=== PATIENT | female | born 1930 | race Caucasian/White ===

== ENCOUNTER 2017-03-09 00:30 | Observation (INO) | payer OTHER, BC ==
[2017-03-09 00:57] VITALS: BMI 26.6
[2017-03-09 01:21] LABS: URINE APPEARANCE CLEAR; URINE BILIRUBIN NEGATIVE (NEGATIVE); URINE BLOOD NEGATIVE (NEGATIVE); URINE COLOR LTYELLOW; URINE GLUCOSE (UA) NEGATIVE (NEGATIVE); URINE KETONE NEGATIVE (NEGATIVE); URINE LEUK ESTERASE NEGATIVE (NEGATIVE); URINE NITRITE NEGATIVE (NEGATIVE); URINE PROTEIN NEGATIVE (NEGATIVE); URINE UROBILINOGEN NEGATIVE mg/dL (0.2-1.0)
[2017-03-09 02:05] LABS: BASO % 1.4 % (0-2.0); EOS % 3.4 % (0-4.5); HEMATOCRIT 37.9 % (32.4-45.2); HEMOGLOBIN 12.6 GM/dL (10.7-15.3); LYMPH % 35.9 % (8-40); MCH 29.8 pg (25.7-33.7); MCHC 33.1 g/dl (32.0-36.0); MEAN CELL VOLUME 90.1 fl (80-96); MEAN PLT VOLUME 9.4 fl (7.5-11.1); MONO % 10.7 % (3.8-10.2); NEUT % 48.6 % (42.8-82.8); PLATELET COUNT 202 K/MM3 (134-434); RBC 4.21 M/mm3 (3.60-5.2); RDW 13.1 % (11.6-15.6); WHITE BLOOD COUNT 8.2 K/mm3 (4.0-10.0)
[2017-03-09 02:35] LABS: ALBUMIN 2.8 g/dl (3.4-5.0); ANION GAP 10 (8-16); BILIRUBIN,TOTAL 0.3 mg/dL (0.2-1.0); BLOOD UREA NITROGEN 21 mg/dL (7-18); CALCIUM 9.1 mg/dL (8.5-10.1); CHLORIDE 108 mmol/L (98-107); CO2 24 mmol/L (21-32); CREATININE 0.9 mg/dL (0.55-1.02); GLUCOSE,RANDOM 126 mg/dL (74-106); POTASSIUM 4.1 mmol/L (3.5-5.1); SGOT/AST 20 U/L (15-37); SGPT/ALT 29 U/L (12-78); SODIUM 142 mmol/L (136-145)
[2017-03-09 02:37] LABS: ALK PHOS 67 U/L (45-117)
--- NOTE | 2017-03-09 03:11 | PDOC ---
History of Present Illness - General Chief Complaint: Syncope/Near Syncope Stated Complaint: SYNCOPE Time Seen by Provider: 03/09/17 02:47 History Source: Patient Exam Limitations: No Limitations - History of Present Illness Initial Comments: 03/09/17 03:03 The patient is an 86F with a PMH of dementia, HTN, anxiety, who presents to the ER via EMS. Hx is provided by EMS and NH records. Per the NH records: "Resident was found to have a syncopal episode w/ a minute of unresponsiveness." The patient cannot provide any history 2/2 to decreased verbal engagement because of dementia. EMS and NH can only provide that history. Past History - Past Medical History Allergies/Adverse Reactions: Allergies Allergy/AdvReac Type Severity Reaction Status Date / Time No Known Allergies Allergy Verified 03/09/17 00:49 Home Medications: Ambulatory Orders Aa/Hydrolyzed Collagen, Whey [Lps Neutral Flavor Liquid] 30 ml PO DAILY Acetaminophen 650 mg PO Q6H PRN 12/26/15 Alendronate Sodium [Binosto] 70 mg PO TU 12/26/15 Calcium Carbonate/Vitamin D3 [Oyster Shell+D 250 mg Tablet] 2 each PO BID Docusate Sodium [Colace -] 200 mg PO DAILY 12/26/15 Guaifenesin [Patience-Tussin] 200 mg PO Q4H PRN 12/26/15 Lisinopril 5 mg PO DAILY 12/26/15 Aspirin [Aspirin EC] 325 mg PO DAILY #30 tablet. 01/05/16 Atorvastatin Ca [Lipitor] 40 mg PO HS #30 tablet 01/05/16 Anemia: Yes COPD: No Dementia: Yes (ALZHEIMERS.) GI Disorders: Yes (GERD.) HTN: Yes Psychiatric Problems: Yes (ANXIETY. DEPRESSION.) Other medical history: freq falls - Suicide/Smoking/Psychosocial Hx Smoking History: Never smoked Have you smoked in the past 12 months: No Information on smoking cessation initiated: No Hx Alcohol Use: No Drug/Substance Use Hx: No Substance Use Type: None Review of Systems - Review of Systems Able to Perform ROS?: No (2/2 dementia) Is the patient limited Amharic proficient: No *Physical Exam - Vital Signs Last Vital Signs Temp Pulse Resp BP Pulse Ox 98.2 F 84 20 127/65 97 03/09/17 00:30 03/09/17 00:30 03/09/17 00:30 03/09/17 00:30 03/09/17 00:30 - Physical Exam Comments: 03/09/17 04:28 GENERAL: Well developed, well nourished. Awake and alert, confused. No acute distress. HEENT: Normocephalic, atraumatic. Hearing grossly normal. PERRLA, EOMI. No conjunctival pallor. Sclera are non-icteric. NECK: Supple. Full ROM. No JVD. CARDIOVASCULAR: Regular rate and rhythm. No murmurs, rubs, or gallops. PULMONARY: No evidence of respiratory distress. Lungs clear to auscultation bilaterally. No wheezing, rales or rhonchi. ABDOMINAL: Soft. Non-tender. Non-distended. No rebound or guarding. MUSCULOSKELETAL: Normal range of motion at all joints. No bony deformities or tenderness. EXTREMITIES: No cyanosis. No clubbing. No edema. No calf tenderness. SKIN: Warm and dry. Normal capillary refill. No rashes. No jaundice. NEUROLOGICAL: Awake, confused. Slight R sided facial droop. Normal speech. PSYCHIATRIC: Cooperative. Good eye contact. Appropriate mood and affect. Heart Score/ECG Review #1 ECG reviewed & interpreted by me at: 04:29 General ECG Interpretation: Sinus Rhythm, Normal Rate, Normal Intervals, No acute ischemic changes Compared to previous ECG there are: Changes noted 03/09/17 04:29 Sinus rhythm with 1st degree AV block Rate 63 IA 228 QRS 110 QTc 470 Incomplete RBBB, not clearly seen on previous EKG ED Treatment Course - LABORATORY CBC & Chemistry Diagram: 03/09/17 02:00 03/09/17 02:00 - ADDITIONAL ORDERS Additional order review: Laboratory Results 03/09/17 03/09/17 02:00 01:03 Sodium 142 Potassium 4.1 Chloride 108 H Carbon Dioxide 24 Anion Gap 10 BUN 21 H Creatinine 0.9 Creat Clearance w eGFR 59.37 Random Glucose 126 H Calcium 9.1 Total Bilirubin 0.3 D AST 20 ALT 29 Alkaline Phosphatase 67 Creatine Kinase 30 Troponin I < 0.02 Total Protein 6.0 L Albumin 2.8 L Urine Color Ltyellow Urine Appearance Clear Urine pH 6.0 Ur Specific [place] 1.021 Urine Protein Negative Urine Glucose (UA) Negative Urine Ketones Negative Urine Blood Negative Urine Nitrite Negative Urine Bilirubin Negative Urine Urobilinogen Negative Ur Leukocyte Esterase Negative 03/09/17 02:00 RBC 4.21 MCV 90.1 MCHC 33.1 RDW 13.1 MPV 9.4 Neutrophils % 48.6 D Lymphocytes % 35.9 D Monocytes % 10.7 H Eosinophils % 3.4 D Basophils % 1.4 - RADIOLOGY Radiology Studies Ordered: Category Date Time Status HEAD CT WITHOUT CONTRAST [CT] Stat CT Scan 03/09/17 01:57 Taken Medical Decision Making - Medical Decision Making 03/09/17 04:30 The patient is an 86F with a PMH of dementia and HTN who presents after having an unwitnessed syncopal episode at her [facility]. The patient cannot provide any history or ROS. PE grossly negative. CT head negative on preliminary read except for increased size of ventricles. EKG showing new incomplete RBBB. Will monitor closely. 03/09/17 06:39 Dr. Mercado has been paged. 03/09/17 06:50 I have spoken to Dr. Pride who accepts admission and would like Dr. Allison and Dr. Eng consulted. *DC/Admit/Observation/Transfer Diagnosis at time of Disposition: Syncope Qualifiers: Syncope type: unspecified Qualified Code(s): R55 - Syncope and collapse - Discharge Dispostion Condition at time of disposition: Stable Admit: Yes - Referrals - Patient Instructions - Post Discharge Activity
[2017-03-09] MEDS ORDERED: ACETAMINOPHEN 325 MG TABLET (FP) PO PRN (10:34)
[2017-03-09] MEDS ORDERED: guaiFENesin 200 MG/10 ML 10 ML UNIT-DOSE CUPS PO PRN (10:34)
--- NOTE | 2017-03-09 10:43 | HP ---
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 Cardiovascular: Yes: HTN Gastrointestinal: Yes: GERD - Smoking History Smoking history: Never smoked Have you smoked in the past 12 months: No - Alcohol/Substance Use Hx Alcohol Use: No - Social History Usual Living Arrangement: Yes: [facility] ADL: Support Services History of Recent Travel: No Home Medications - Allergies Allergies/Adverse Reactions: Allergies Allergy/AdvReac Type Severity Reaction Status Date / Time No Known Allergies Allergy Verified 03/09/17 00:49 - Home Medications Home Medications: Ambulatory Orders Aa/Hydrolyzed Collagen, Whey [Lps Neutral Flavor Liquid] 30 ml PO DAILY Acetaminophen 650 mg PO Q6H PRN 12/26/15 Alendronate Sodium [Binosto] 70 mg PO TU 12/26/15 Calcium Carbonate/Vitamin D3 [Oyster Shell+D 250 mg Tablet] 2 each PO BID Docusate Sodium [Colace -] 200 mg PO DAILY 12/26/15 Guaifenesin [Patience-Tussin] 200 mg PO Q4H PRN 12/26/15 Lisinopril 5 mg PO DAILY 12/26/15 Aspirin [Aspirin EC] 325 mg PO DAILY #30 tablet. 01/05/16 Atorvastatin Ca [Lipitor] 40 mg PO HS #30 tablet 01/05/16 Family Disease History - Family Disease History Family History: Unable to Obtain Review of Systems Unable to obtain ROS, reason: dementia Physical Examination Vital Signs: Vital Signs Temperature 36.8 C 03/09/17 00:30 Pulse Rate 84 03/09/17 00:30 Respiratory Rate 20 03/09/17 00:30 Blood Pressure 127/65 03/09/17 00:30 O2 Sat by Pulse Oximetry (%) 97 03/09/17 00:30 Constitutional: Yes: Well Nourished, No Distress, Calm Eyes: Yes: Conjunctiva Clear, PERRL HENT: Yes: Atraumatic, Normocephalic Cardiovascular: Yes: Regular Rate and Rhythm. No: Gallop, Murmur, Rub Respiratory: Yes: Regular, CTA Bilaterally. No: Rales, Rhonchi, Wheezes Gastrointestinal: Yes: Normal Bowel Sounds, Soft. No: Distention, Tenderness Extremities: Yes: Other (R arm contracted) Edema: No Labs: CBC, BMP 03/09/17 02:00 03/09/17 02:00 Imaging - Results Cat Scan: Report Reviewed Ultrasound: Report Reviewed Problem List - Problems (1) Syncope Assessment/Plan: -patient with syncope at [facility] -admit under observation to telemetry -ECHO and carotid ultrasound reviewed -unable to do orthostatics secondary to right hemiparesis -case d/w neurology -awaiting cardiology evaluation -continue IVF currently Code(s): R55 - SYNCOPE AND COLLAPSE Qualifiers: Syncope type: unspecified Qualified Code(s): R55 - Syncope and collapse (2) CVA, old, hemiparesis Assessment/Plan: -case d/w daughter in law -baseline is right side hemiparesis -appears at baseline Code(s): I69.359 - HEMIPLGA FOLLOWING CEREBRAL INFARCTION AFFECTING UNSP SIDE (3) HTN (hypertension) Assessment/Plan: -continue lisinopril Code(s): I10 - ESSENTIAL (PRIMARY) HYPERTENSION (4) HLD (hyperlipidemia) Assessment/Plan: -continue statin Code(s): E78.5 - HYPERLIPIDEMIA, UNSPECIFIED (5) Alzheimer's dementia without behavioral disturbance Assessment/Plan: -daughter in law says patient mumbles and dementia is severe -appears at baseline Code(s): G30.9 - ALZHEIMER'S DISEASE, UNSPECIFIED; F02.80 - DEMENTIA IN OTH DISEASES CLASSD ELSWHR W/O BEHAVRL DISTURB
[2017-03-09] MEDS ORDERED: SODIUM CHLORIDE 1,000 ML IV SCH (10:45)
--- NOTE | 2017-03-09 10:58 | EKG ---
Test Reason : Blood Pressure : / mmHG Vent. Rate : 063 BPM Atrial Rate : 063 BPM P-R Int : 228 ms QRS Dur : 110 ms QT Int : 460 ms P-R-T Axes : 069 021 -06 degrees QTc Int : 470 ms SINUS RHYTHM WITH 1ST DEGREE A-V BLOCK INCOMPLETE RIGHT BUNDLE BRANCH BLOCK NONSPECIFIC ST ABNORMALITY ABNORMAL ECG WHEN COMPARED WITH ECG OF 28-DEC-2015 09:04, [place] INTERVAL HAS INCREASED T WAVE INVERSION NO LONGER EVIDENT IN ANTERIOR LEADS Confirmed by MARLON MURRIETA MD ([id number]) on 03/09/2017 10:58:17 AM Referred By: Confirmed By:MARLON MURRIETA MD
--- NOTE | 2017-03-09 12:20 | CONSULT ---
Consult - text type - Consultation Consultation Note: Neurology History of Present Illness The patient is an 86F with a PMH of dementia, HTN, anxiety, who presents to the ER via EMS. Hx is provided by EMS and NH records. Per the NH records: "Resident was found to have a syncopal episode w/ a minute of unresponsiveness." The patient cannot provide any history 2/2 to decreased verbal engagement because of dementia. I reviewed EMS report and NH report in chart. Hospitalist also spoke with daughter and patient history of CVA with R sided paralysis. Also with severe Alz disease and with mumbling. During my encounter, appears to be at baseline as decribed. CT head reviewed and did demonstrate old left basal ganglia infarct which is consistent with her right-side paralysis. There were no new acute changes on CAT scan. Past History - Past Medical History Allergies/Adverse Reactions: Allergies Allergy/AdvReac Type Severity Reaction Status Date / Time No Known Allergies Allergy Verified 03/09/17 00:49 Home Medications: Ambulatory Orders Aa/Hydrolyzed Collagen, Whey [Lps Neutral Flavor Liquid] 30 ml PO DAILY Acetaminophen 650 mg PO Q6H PRN 12/26/15 Alendronate Sodium [Binosto] 70 mg PO TU 12/26/15 Calcium Carbonate/Vitamin D3 [Oyster Shell+D 250 mg Tablet] 2 each PO BID Docusate Sodium [Colace -] 200 mg PO DAILY 12/26/15 Guaifenesin [Patience-Tussin] 200 mg PO Q4H PRN 12/26/15 Lisinopril 5 mg PO DAILY 12/26/15 Aspirin [Aspirin EC] 325 mg PO DAILY #30 tablet. 01/05/16 Atorvastatin Ca [Lipitor] 40 mg PO HS #30 tablet 01/05/16 Anemia: Yes COPD: No Dementia: Yes (ALZHEIMERS.) GI Disorders: Yes (GERD.) HTN: Yes Psychiatric Problems: Yes (ANXIETY. DEPRESSION.) Other medical history: freq falls - Suicide/Smoking/Psychosocial Hx Smoking History: Never smoked Have you smoked in the past 12 months: No Information on smoking cessation initiated: No Hx Alcohol Use: No Drug/Substance Use Hx: No Substance Use Type: None Review of Systems - Review of Systems Able to Perform ROS?: No (2/2 dementia and nonverbal) Is the patient limited Ecuadorean proficient: No *Physical Exam Vital Signs Temperature 98.2 F 03/09/17 00:30 Pulse Rate 84 03/09/17 00:30 Respiratory Rate 20 03/09/17 00:30 Blood Pressure 127/65 03/09/17 00:30 O2 Sat by Pulse Oximetry (%) 97 03/09/17 00:30 GENERAL: Well developed, well nourished. Awake and alert, confused. No acute distress. HEENT: Normocephalic, atraumatic. Hearing grossly normal. PERRLA, EOMI. No conjunctival pallor. Sclera are non-icteric. NECK: Supple. Full ROM. No JVD. CARDIOVASCULAR: Regular rate and rhythm. No murmurs, rubs, or gallops. PULMONARY: No evidence of respiratory distress. Lungs clear to auscultation bilaterally. No wheezing, rales or rhonchi. ABDOMINAL: Soft. Non-tender. Non-distended. No rebound or guarding. MUSCULOSKELETAL: Normal range of motion at all joints. No bony deformities or tenderness. EXTREMITIES: No cyanosis. No clubbing. No edema. No calf tenderness. SKIN: Warm and dry. Normal capillary refill. No rashes. No jaundice. NEUROLOGICAL: Awake, confused. R facial droop, RUE and RLE hemiparesis, not fully cooperative in confrontation PSYCHIATRIC: Minimally cooperative, emotional Laboratory Results 03/09/17 03/09/17 02:00 01:03 Sodium 142 Potassium 4.1 Chloride 108 H Carbon Dioxide 24 Anion Gap 10 BUN 21 H Creatinine 0.9 Creat Clearance w eGFR 59.37 Random Glucose 126 H Calcium 9.1 Total Bilirubin 0.3 D AST 20 ALT 29 Alkaline Phosphatase 67 Creatine Kinase 30 Troponin I < 0.02 Total Protein 6.0 L Albumin 2.8 L Urine Color Ltyellow Urine Appearance Clear Urine pH 6.0 Ur Specific [place] 1.021 Urine Protein Negative Urine Glucose (UA) Negative Urine Ketones Negative Urine Blood Negative Urine Nitrite Negative Urine Bilirubin Negative Urine Urobilinogen Negative Ur Leukocyte Esterase Negative 03/09/17 02:00 RBC 4.21 MCV 90.1 MCHC 33.1 RDW 13.1 MPV 9.4 Neutrophils % 48.6 D Lymphocytes % 35.9 D Monocytes % 10.7 H Eosinophils % 3.4 D Basophils % 1.4 - RADIOLOGY CT head reviewed Medical Decision Making 86F with a PMH of dementia, HTN, anxiety, who presents to the ER via EMS. Hx is provided by EMS and NH records. Per the NH records: "Resident was found to have a syncopal episode w/ a minute of unresponsiveness." The patient cannot provide any history 2/2 to decreased verbal engagement because of dementia. I reviewed EMS report and NH report in chart. Hospitalist also spoke with daughter and patient history of CVA with R sided paralysis. Also with severe Alz disease and with mumbling. During my encounter, appears to be at baseline as decribed. CT head reviewed and did demonstrate old left basal ganglia infarct which is consistent with her right-side paralysis. There were no new acute changes on CAT scan. Ventricular dilation consistent with age-related atrophy and Alzheimer 's. At this time I would recommend adequate hydration, monitor blood pressure maintain normotensive range, caution for behavioral changes as patient may have sundowning in unfamiliar environment of the hospital due to her Alzheimer' s. Otherwise neurologically stable at this time.
--- NOTE | 2017-03-09 17:43 | CON.CARD ---
Cardiology Consult (text) - Consultation Consultation Note: CC: syncope 86 yo with pmhx of htn, cva with residual rt hemiparesis, severe alzheimer's ( mumbles/otherwise nonverbal), gerd who presents with syncope per report, concern for syncope b/c patient was unresponsive for one minute. unable to obtain history from patient. reviewed [facility] notes. patient on aspiration precautions. appears to be bed bound, but not clear from available records. patient appears anxious, is not able to respond to questions about symptoms, does not follow commands. pmhx/pshx: per hpi social hx: Never smoked, [facility] resident. dnr fam hx: unable to obtain ros: per hpi, limited due to patient mental status Ambulatory Orders Aa/Hydrolyzed Collagen, Whey [Lps Neutral Flavor Liquid] 30 ml PO DAILY Acetaminophen 650 mg PO Q6H PRN 12/26/15 Alendronate Sodium [Binosto] 70 mg PO TU 12/26/15 Calcium Carbonate/Vitamin D3 [Oyster Shell+D 250 mg Tablet] 2 each PO BID Docusate Sodium [Colace -] 200 mg PO DAILY 12/26/15 Guaifenesin [Patience-Tussin] 200 mg PO Q4H PRN 12/26/15 Lisinopril 5 mg PO DAILY 12/26/15 Aspirin [Aspirin EC] 325 mg PO DAILY #30 tablet. 01/05/16 Atorvastatin Ca [Lipitor] 40 mg PO HS #30 tablet 01/05/16 Current Medications Acetaminophen (Tylenol -) 650 mg PO Q6H PRN PRN Reason: PAIN Amino Acids (Prosource No Carb Liquid Pkt) 30 ml PO DAILY@0800 COUNT INCLUDES THE [facility] Aspirin (Ecotrin -) 325 mg PO DAILY COUNT INCLUDES THE [facility] Atorvastatin Calcium (Lipitor -) 40 mg PO HS COUNT INCLUDES THE [facility] Calcium/Vitamin D (Oscal 250 Mg+D -) 2 tab PO BID COUNT INCLUDES THE [facility] Docusate Sodium (Colace -) 200 mg PO DAILY [facility] Guaifenesin (Robitussin -) 10 ml PO Q4H PRN PRN Reason: COUGH Sodium Chloride (Normal Saline -) 1,000 mls @ 50 mls/hr IV ASDIR COUNT INCLUDES THE [facility] Stop: 03/10/17 10:39 Last Admin: 03/09/17 16:38 Dose: 50 mls/hr Lisinopril (Prinivil) 5 mg PO DAILY COUNT INCLUDES THE [facility] Vital Signs - 24 hr 03/09/17 03/09/17 00:30 14:38 Temperature 98.2 F 98.2 F Pulse Rate 84 Pulse Rate [ 58 L Left Radial] Respiratory 20 22 Rate Blood Pressure 127/65 Blood Pressure 159/68 [Right Arm] O2 Sat by Pulse 97 99 Oximetry (%) Intake & Output 03/07/17 03/08/17 03/09/17 03/10/17 07:59 07:59 07:59 07:59 Weight 160 lb nad, calm but anxious when examined jvd flat, neck supple ctab, poor effort rrr nl s1, s2 no mrg + bs soft nt nd ext without e/c/c dp/pt alert, not oriented rt sided weakness no jaundice, diaphoresis no carotid bruit. CBC, BMP 03/09/17 02:00 03/09/17 02:00 Laboratory Tests 03/09/17 02:00 Total Bilirubin 0.3 D AST 20 ALT 29 Alkaline Phosphatase 67 Troponin I < 0.02 Albumin 2.8 L ekg: sr with av delay. incomplete rbbb. non-specific t wave ab in inf leads. (prior anterior twi no longer seen, new av delay and qrs widening). tele: sr 60's echo 03/2017: nl lv/rv size/fn. 1+ ar. carotid u/s: very limited/non-diagnostic exam. Small plaque on right without increased measured velocities, left side not evaluated. 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 A/P 86 yo with pmhx of htn, cva with residual rt hemiparesis, severe alzheimer's ( mumbles/otherwise nonverbal), gerd who presents with syncope syncope - echo unremarkable - ce's neg x 1. no acute ischemic changes on ekg. will obtain 2nd set of cardiac enzymes to complete dany, but low suspicion for acs. - tele monitoring to evaluate for arrhythmia. will check magnesium level and tsh. - no acute pathology on head ct, carotid u/s not diagnostic, neuro following. - infectious work up per pmd. history of po intake unclear, on ivf. htn - on lisinopril as outpatient. Has not yet received/needed here. Continue and monitor for need to adjust dose. cva with right hemiparesis, bed bound. - on high dose asa and statin as outpatient, con't - no acute pathology on head ct, neuro following
[2017-03-09] MEDS: CALCIUM 250MG/VIT-D 125 UNITS 1 COMBO TABLET PO SCH (22:16)
[2017-03-09] MEDS: ATORVASTATIN CA 40 MG TABLET (FP) PO SCH (22:16)
[2017-03-10 07:16] LABS: EOS % 2.1 % (0-4.5); HEMATOCRIT 39.9 % (32.4-45.2); HEMOGLOBIN 13.1 GM/dL (10.7-15.3); LYMPH % 28.6 % (8-40); MCH 29.5 pg (25.7-33.7); MCHC 32.9 g/dl (32.0-36.0); MEAN CELL VOLUME 89.7 fl (80-96); MEAN PLT VOLUME 9.5 fl (7.5-11.1); MONO % 10.1 % (3.8-10.2); NEUT % 58.2 % (42.8-82.8); PLATELET COUNT 202 K/MM3 (134-434); RBC 4.45 M/mm3 (3.60-5.2); RDW 13.3 % (11.6-15.6); WHITE BLOOD COUNT 10.5 K/mm3 (4.0-10.0)
[2017-03-10 07:22] LABS: ANION GAP 8 (8-16); BLOOD UREA NITROGEN 13 mg/dL (7-18); CALCIUM 8.3 mg/dL (8.5-10.1); CHLORIDE 109 mmol/L (98-107); CO2 25 mmol/L (21-32); CREATININE 0.7 mg/dL (0.55-1.02); GLUCOSE,RANDOM 107 mg/dL (74-106); MAGNESIUM 1.9 mg/dL (1.8-2.4); PHOSPHOROUS 3.4 mg/dL (2.5-4.9); SODIUM 142 mmol/L (136-145)
--- NOTE | 2017-03-10 09:31 | PN ---
Progress Note (short form) - Note Progress Note: Neurology History of Present Illness The patient is an 86F with a PMH of dementia, HTN, anxiety, who presents to the ER via EMS. Hx is provided by EMS and NH records. Per the NH records: "Resident was found to have a syncopal episode w/ a minute of unresponsiveness. The patient cannot provide any history 2/2 to decreased verbal engagement because of dementia. I reviewed EMS report and NH report in chart. Hospitalist also spoke with daughter and patient history of CVA with R sided paralysis. Also with severe Alz disease and with mumbling. During my encounter, appears to be at baseline as decribed. CT head reviewed and did demonstrate old left basal ganglia infarct which is consistent with her right-side paralysis. There were no new acute changes on CAT scan. Cardiology note reviewed, echo completed and with normal LV, RV function. Active Medications Acetaminophen (Tylenol -) 650 mg PO Q6H PRN PRN Reason: PAIN Amino Acids (Prosource No Carb Liquid Pkt) 30 ml PO DAILY@0800 [facility] Aspirin (Ecotrin -) 325 mg PO DAILY [facility] Atorvastatin Calcium (Lipitor -) 40 mg PO HS [facility] Last Admin: 03/09/17 22:16 Dose: 40 mg Calcium/Vitamin D (Oscal 250 Mg+D -) 2 tab PO BID [facility] Last Admin: 03/09/17 22:16 Dose: 2 tab Docusate Sodium (Colace -) 200 mg PO DAILY [facility] Guaifenesin (Robitussin -) 10 ml PO Q4H PRN PRN Reason: COUGH Sodium Chloride (Normal Saline -) 1,000 mls @ 50 mls/hr IV ASDIR [facility] Stop: 03/10/17 10:39 Last Admin: 03/09/17 16:38 Dose: 50 mls/hr Lisinopril (Prinivil) 5 mg PO DAILY [facility] *Physical Exam Vital Signs Temperature 98 F 03/10/17 09:21 Pulse Rate 60 03/10/17 09:21 Respiratory Rate 18 03/10/17 09:21 Blood Pressure 148/74 03/10/17 09:21 O2 Sat by Pulse Oximetry (%) 95 03/10/17 00:00 GENERAL: Well developed, well nourished. Awake and alert, confused. No acute distress. HEENT: Normocephalic, atraumatic. Hearing grossly normal. PERRLA, EOMI. No conjunctival pallor. Sclera are non-icteric. NECK: Supple. Full ROM. No JVD. CARDIOVASCULAR: Regular rate and rhythm. No murmurs, rubs, or gallops. PULMONARY: No evidence of respiratory distress. Lungs clear to auscultation bilaterally. No wheezing, rales or rhonchi. ABDOMINAL: Soft. Non-tender. Non-distended. No rebound or guarding. MUSCULOSKELETAL: Normal range of motion at all joints. No bony deformities or tenderness. EXTREMITIES: No cyanosis. No clubbing. No edema. No calf tenderness. SKIN: Warm and dry. Normal capillary refill. No rashes. No jaundice. NEUROLOGICAL: Awake, confused. R facial droop, RUE and RLE hemiparesis, not fully cooperative in confrontation PSYCHIATRIC: Minimally cooperative, emotional CBCD WBC 10.5 K/mm3 (4.0-10.0) H 03/10/17 05:35 RBC 4.45 M/mm3 (3.60-5.2) 03/10/17 05:35 Hgb 13.1 GM/dL (10.7-15.3) 03/10/17 05:35 Hct 39.9 % (32.4-45.2) 03/10/17 05:35 MCV 89.7 fl (80-96) 03/10/17 05:35 MCHC 32.9 g/dl (32.0-36.0) 03/10/17 05:35 RDW 13.3 % (11.6-15.6) 03/10/17 05:35 Plt Count 202 K/MM3 (134-434) 03/10/17 05:35 MPV 9.5 fl (7.5-11.1) 03/10/17 05:35 CMP Sodium 142 mmol/L (136-145) 03/10/17 05:35 Potassium 4.0 mmol/L (3.5-5.1) 03/10/17 05:35 Chloride 109 mmol/L (98-107) H 03/10/17 05:35 Carbon Dioxide 25 mmol/L (21-32) 03/10/17 05:35 Anion Gap 8 (8-16) 03/10/17 05:35 BUN 13 mg/dL (7-18) 03/10/17 05:35 Creatinine 0.7 mg/dL (0.55-1.02) 03/10/17 05:35 Creat Clearance w eGFR 59.37 (>60) 03/09/17 02:00 Calcium 8.3 mg/dL (8.5-10.1) L 03/10/17 05:35 Total Bilirubin 0.3 mg/dL (0.2-1.0) D 03/09/17 02:00 AST 20 U/L (15-37) 03/09/17 02:00 ALT 29 U/L (12-78) 03/09/17 02:00 Alkaline Phosphatase 67 U/L (45-117) 03/09/17 02:00 Total Protein 6.0 g/dl (6.4-8.2) L 03/09/17 02:00 Albumin 2.8 g/dl (3.4-5.0) L 03/09/17 02:00 - RADIOLOGY CT head reviewed Echo reviewed Medical Decision Making 86F with a PMH of dementia, HTN, anxiety, who presents to the ER via EMS. Hx is provided by EMS and [place] records. Per the [place] records: "Resident was found to have a syncopal episode w/ a minute of unresponsiveness." The patient cannot provide any history 2/2 to decreased verbal engagement because of dementia. I reviewed EMS report and [place] report in chart. Hospitalist also spoke with daughter and patient history of CVA with R sided paralysis. Also with severe Alz disease and with mumbling. During my encounter, appears to be at baseline as described. CT head reviewed and did demonstrate old left basal ganglia infarct which is consistent with her right-side paralysis. There were no new acute changes on CAT scan. Ventricular dilation consistent with age-related atrophy and Alzheimer 's. Echo reviewed, cardiolog note reviewed. Monitor blood pressure maintain normotensive range, caution for behavioral changes as patient may have sundowning in unfamiliar environment of the hospital due to her Alzheimer's. Would not pursue further imaging of head as deficits are chronic. No further rec 'd at this time.
[2017-03-10] MEDS: CALCIUM 250MG/VIT-D 125 UNITS 1 COMBO TABLET PO SCH ×2 (09:48→22:05)
[2017-03-10] MEDS: LISINOPRIL 5 MG TABLET (FP) PO SCH (09:48)
[2017-03-10] MEDS: AMINO ACIDS/PROTEIN HYDROLYS 30 ML LIQUID.PKT PO SCH (09:48)
[2017-03-10] MEDS: ASPIRIN 325 MG ENTERIC COATED TABLET (FP) PO SCH (09:48)
[2017-03-10] MEDS: DOCUSATE SODIUM 100 MG CAPSULE (FP) PO SCH (09:57)
--- NOTE | 2017-03-10 11:17 | PN ---
Progress Note (short form) - Note Progress Note: s: confused, not answering questions, looks comfortable o: Vital Signs Period Temp Pulse Resp BP Sys/Forrester Pulse Ox Last 24 Hr 97.7 F-98.2 F 58-76 18-22 132-183/60-92 95-99 nad, calm jvd flat, neck supple ctab, poor effort rrr nl s1, s2 no mrg + bs soft nt nd ext without e/c/c alert, not oriented no jaundice, diaphoresis Current Medications Generic Name Dose Route Start Last Admin Trade Name Freq PRN Reason Stop Dose Admin Acetaminophen 650 mg 03/09/17 10:34 Tylenol - PO Q6H PRN PAIN Amino Acids 30 ml 03/10/17 08:00 03/10/17 09:48 Prosource No Carb Liquid Pkt PO 30 ml DAILY@0800 [facility] Administration Aspirin 325 mg 03/10/17 10:00 03/10/17 09:48 Ecotrin - PO 325 mg DAILY [facility] Administration Atorvastatin Calcium 40 mg 03/09/17 22:00 03/09/17 22:16 Lipitor - PO 40 mg HS [facility] Administration Calcium/Vitamin D 2 tab 03/09/17 22:00 03/10/17 09:48 Oscal 250 Mg+D - PO 2 tab BID [facility] Administration Docusate Sodium 200 mg 03/10/17 10:00 03/10/17 09:57 Colace - PO Not Given DAILY [facility] Guaifenesin 10 ml 03/09/17 10:34 Robitussin - PO Q4H PRN COUGH Lisinopril 5 mg 03/10/17 10:00 03/10/17 09:48 Prinivil PO 5 mg DAILY [facility] Administration CBC, BMP 03/10/17 05:35 03/10/17 05:35 ekg: sr with av delay. incomplete rbbb. non-specific t wave ab in inf leads. (prior anterior twi no longer seen, new av delay and qrs widening). tele: sr echo 03/2017: nl lv/rv size/fn. 1+ ar. carotid u/s: very limited/non-diagnostic exam. Small plaque on right without increased measured velocities, left side not evaluated. 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 A/P 86 yo with pmhx of htn, cva with residual rt hemiparesis, severe alzheimer's ( mumbles/otherwise nonverbal), gerd who presents with syncope syncope - echo unremarkable - ce's neg x 2. no acute ischemic changes on ekg. no signs acs - tele monitoring benign thus far - no acute pathology on head ct, carotid u/s not diagnostic, neuro following. - infectious work up per pmd. history of po intake unclear, on ivf. htn - continue lisinopril cva with right hemiparesis, bed bound. - on high dose asa and statin as outpatient, con't - no acute pathology on head ct, neuro following
[2017-03-10] MEDS: LACTOBACILLUS ACIDOPHILUS 1 EACH TAB (FP) PO SCH (12:22)
[2017-03-10] MEDS: AMOX TR/POT CLAV 875MG/125MG TABLETS (FP) PO SCH ×2 (12:22→17:17)
--- NOTE | 2017-03-10 12:43 | PN ---
Progress Note, Physician Chief Complaint: Unable to obtain, son and daughter in law at bedside stating patient looks like she is doing well. - Current Medication List Current Medications: Active Medications Acetaminophen (Tylenol -) 650 mg PO Q6H PRN PRN Reason: PAIN Amino Acids (Prosource No Carb Liquid Pkt) 30 ml PO DAILY@0800 [facility] Last Admin: 03/10/17 09:48 Dose: 30 ml Amoxicillin/Clavulanate Potassium (Augmentin - 875mg Tablet) 1 tab PO BID@0800, 1730 [facility] Last Admin: 03/10/17 12:22 Dose: 1 tab Aspirin (Ecotrin -) 325 mg PO DAILY [facility] Last Admin: 03/10/17 09:48 Dose: 325 mg Atorvastatin Calcium (Lipitor -) 40 mg PO HS [facility] Last Admin: 03/09/17 22:16 Dose: 40 mg Calcium/Vitamin D (Oscal 250 Mg+D -) 2 tab PO BID [facility] Last Admin: 03/10/17 09:48 Dose: 2 tab Docusate Sodium (Colace -) 200 mg PO DAILY [facility] Last Admin: 03/10/17 09:57 Dose: Not Given Guaifenesin (Robitussin -) 10 ml PO Q4H PRN PRN Reason: COUGH Lactobacillus Acidophilus (Bacid -) 1 tab PO DAILY [facility] Last Admin: 03/10/17 12:22 Dose: 1 tab Lisinopril (Prinivil) 5 mg PO DAILY [facility] Last Admin: 03/10/17 09:48 Dose: 5 mg - Objective Vital Signs: Vital Signs Temperature 36.6 C 03/10/17 09:21 Pulse Rate 60 03/10/17 09:21 Respiratory Rate 18 03/10/17 09:21 Blood Pressure 148/74 03/10/17 09:21 O2 Sat by Pulse Oximetry (%) 95 03/10/17 00:00 Constitutional: Yes: Well Nourished, No Distress, Calm Cardiovascular: Yes: Regular Rate and Rhythm. No: Gallop, Murmur, Rub Respiratory: Yes: Regular, CTA Bilaterally. No: Rales, Rhonchi, Wheezes Gastrointestinal: Yes: Normal Bowel Sounds, Soft. No: Distention, Tenderness Extremities: Yes: WNL Edema: No Labs: CBC, BMP 03/10/17 05:35 03/10/17 05:35 Problem List - Problems (1) Syncope Code(s): R55 - SYNCOPE AND COLLAPSE Qualifiers: Syncope type: unspecified Qualified Code(s): R55 - Syncope and collapse (2) CVA, old, hemiparesis Code(s): I69.359 - HEMIPLGA FOLLOWING CEREBRAL INFARCTION AFFECTING UNSP SIDE (3) HTN (hypertension) Code(s): I10 - ESSENTIAL (PRIMARY) HYPERTENSION (4) HLD (hyperlipidemia) Code(s): E78.5 - HYPERLIPIDEMIA, UNSPECIFIED (5) Alzheimer's dementia without behavioral disturbance Code(s): G30.9 - ALZHEIMER'S DISEASE, UNSPECIFIED; F02.80 - DEMENTIA IN OTH DISEASES CLASSD ELSWHR W/O BEHAVRL DISTURB (6) UTI (urinary tract infection) Code(s): N39.0 - URINARY TRACT INFECTION, SITE NOT SPECIFIED Qualifiers: Urinary tract infection type: acute cystitis Hematuria presence: without hematuria Qualified Code(s): N30.00 - Acute cystitis without hematuria Assessment/Plan (1) Syncope Assessment/Plan: -resolved -can stop IVF -monitor Code(s): R55 - SYNCOPE AND COLLAPSE Qualifiers: Syncope type: unspecified Qualified Code(s): R55 - Syncope and collapse (2) CVA, old, hemiparesis Assessment/Plan: -continue current management -at baseline Code(s): I69.359 - HEMIPLGA FOLLOWING CEREBRAL INFARCTION AFFECTING UNSP SIDE (3) HTN (hypertension) Assessment/Plan: -continue lisinopril Code(s): I10 - ESSENTIAL (PRIMARY) HYPERTENSION (4) HLD (hyperlipidemia) Assessment/Plan: -continue statin Code(s): E78.5 - HYPERLIPIDEMIA, UNSPECIFIED (5) Alzheimer's dementia without behavioral disturbance Assessment/Plan: -appears at baseline Code(s): G30.9 - ALZHEIMER'S DISEASE, UNSPECIFIED; F02.80 - DEMENTIA IN OTH DISEASES CLASSD ELSWHR W/O BEHAVRL DISTURB (6) UTI -found on urine culture -growing proteus and enterococcus -awaiting sensitivities -both should be susceptible to augmentin, will start -if cultures show both are sensitive, discharge on full course of augmentin -if not will change to inpatient and treat with IV antibiotics
[2017-03-10] MEDS: ATORVASTATIN CA 40 MG TABLET (FP) PO SCH (22:05)
[2017-03-11 07:58] LABS: ANION GAP 6 (8-16); BLOOD UREA NITROGEN 19 mg/dL (7-18); CALCIUM 8.9 mg/dL (8.5-10.1); CHLORIDE 105 mmol/L (98-107); CO2 30 mmol/L (21-32); CREATININE 0.9 mg/dL (0.55-1.02); GLUCOSE,RANDOM 114 mg/dL (74-106); PHOSPHOROUS 3.9 mg/dL (2.5-4.9); POTASSIUM 4.2 mmol/L (3.5-5.1); SODIUM 141 mmol/L (136-145)
[2017-03-11 08:08] LABS: BASO % 1.5 % (0-2.0); EOS % 2.7 % (0-4.5); HEMATOCRIT 40.2 % (32.4-45.2); HEMOGLOBIN 13.1 GM/dL (10.7-15.3); LYMPH % 30.7 % (8-40); MCH 29.4 pg (25.7-33.7); MCHC 32.6 g/dl (32.0-36.0); MEAN CELL VOLUME 90.1 fl (80-96); MEAN PLT VOLUME 9.7 fl (7.5-11.1); MONO % 11.6 % (3.8-10.2); NEUT % 53.5 % (42.8-82.8); PLATELET COUNT 218 K/MM3 (134-434); RBC 4.46 M/mm3 (3.60-5.2); RDW 13.2 % (11.6-15.6)
--- NOTE | 2017-03-11 08:22 | PN ---
Progress Note, Physician Chief Complaint: syncope History of Present Illness: appears comfortable. not communicative - Current Medication List Current Medications: Active Medications Acetaminophen (Tylenol -) 650 mg PO Q6H PRN PRN Reason: PAIN Amino Acids (Prosource No Carb Liquid Pkt) 30 ml PO DAILY@0800 [facility] Last Admin: 03/10/17 09:48 Dose: 30 ml Amoxicillin/Clavulanate Potassium (Augmentin - 875mg Tablet) 1 tab PO BID@0800, 1730 [facility] Last Admin: 03/10/17 17:17 Dose: 1 tab Aspirin (Ecotrin -) 325 mg PO DAILY [facility] Last Admin: 03/10/17 09:48 Dose: 325 mg Atorvastatin Calcium (Lipitor -) 40 mg PO HS [facility] Last Admin: 03/10/17 22:05 Dose: 40 mg Calcium/Vitamin D (Oscal 250 Mg+D -) 2 tab PO BID [facility] Last Admin: 03/10/17 22:05 Dose: 2 tab Docusate Sodium (Colace -) 200 mg PO DAILY [facility] Last Admin: 03/10/17 09:57 Dose: Not Given Guaifenesin (Robitussin -) 10 ml PO Q4H PRN PRN Reason: COUGH Lactobacillus Acidophilus (Bacid -) 1 tab PO DAILY [facility] Last Admin: 03/10/17 12:22 Dose: 1 tab Lisinopril (Prinivil) 5 mg PO DAILY [facility] Last Admin: 03/10/17 09:48 Dose: 5 mg - Objective Vital Signs: Vital Signs Temperature 97.4 F L 03/11/17 06:00 Pulse Rate 69 03/11/17 06:00 Respiratory Rate 18 03/11/17 06:00 Blood Pressure 138/67 03/11/17 06:00 O2 Sat by Pulse Oximetry (%) 95 03/10/17 21:00 Constitutional: Yes: Well Nourished, No Distress, Calm Cardiovascular: Yes: Regular Rate and Rhythm, S1, S2. No: Gallop, Murmur Respiratory: Yes: Regular, CTA Bilaterally (not taking deep breaths for exam). No: Accessory Muscle Use, Rales, Wheezes Extremities: No: Cold Edema: No Neurological: Yes: Alert. No: Oriented Psychiatric: No: Agitated Labs: CBC, BMP 03/11/17 06:32 03/11/17 06:32 - ....Imaging EKG: Other (tele: NSR. 7b run NSVT) Assessment/Plan ekg: sr with av delay. incomplete rbbb. non-specific t wave ab in inf leads. (prior anterior twi no longer seen, new av delay and qrs widening). tele: sr echo 03/2017: nl lv/rv size and fn. 1+ ar. carotid u/s: very limited/non-diagnostic exam. Small plaque on right without increased measured velocities, left side not evaluated. 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 A/P 86 yo with pmhx of htn, cva with residual rt hemiparesis, severe alzheimer's ( mumbles/otherwise nonverbal), gerd who presents with syncope syncope - details unavailable due to pt dementia, ? if true syncope ("1 min of unresponsiveness" per [facility] records) - tele monitoring x 48 hrs now has shown no bradyarrhtyhmia or culprit tachyarrhythmia--d/c monitor - echo unremarkable - no signs of ACS (ce's neg x 2. no acute ischemic changes on ekg) - no acute pathology on head ct, no acute CVA suspected by neurology. carotid u/ s not diagnostic and would not change mgmt as this pt is not a candidate for CEA regardless - episode of unresponsiveness may very well have been due to UTI (in pt with baseline impaired cognition/sensorium)--abx per pmd Vtach: -NSVT 7 beat run -no prognostic significance in pt with normal echo -K/Mag at aggressive targets--replete PRN -requires no further w/u or treatment htn - bp reasonably controlled here - continue lisinopril, observe trend old L b.g. cva with right hemiparesis, bed bound: - on high dose asa and statin as outpatient, prior tx plan not changed here - no evidence of acute CVA here, per neuro D/C TELEMETRY
[2017-03-11] MEDS: AMINO ACIDS/PROTEIN HYDROLYS 30 ML LIQUID.PKT PO SCH (09:40)
[2017-03-11] MEDS: AMOX TR/POT CLAV 875MG/125MG TABLETS (FP) PO SCH ×2 (09:40→16:57)
[2017-03-11] MEDS: CALCIUM 250MG/VIT-D 125 UNITS 1 COMBO TABLET PO SCH ×2 (09:40→21:57)
[2017-03-11] MEDS: LACTOBACILLUS ACIDOPHILUS 1 EACH TAB (FP) PO SCH (09:40)
[2017-03-11] MEDS: ASPIRIN 325 MG ENTERIC COATED TABLET (FP) PO SCH (09:41)
[2017-03-11] MEDS: DOCUSATE SODIUM 100 MG CAPSULE (FP) PO SCH (09:41)
[2017-03-11] MEDS: LISINOPRIL 5 MG TABLET (FP) PO SCH (09:43)
--- NOTE | 2017-03-11 11:47 | PN ---
Progress Note (short form) - Note Progress Note: Medical coverage for Dr. Mercado Subjective: The patient was seen and examined at the bedside, she has no complaints at this time. Denies any pain Current Medications Generic Name Dose Route Start Last Admin Trade Name Freq PRN Reason Stop Dose Admin Acetaminophen 650 mg 03/09/17 10:34 Tylenol - PO Q6H PRN PAIN Amino Acids 30 ml 03/10/17 08:00 03/11/17 09:40 Prosource No Carb Liquid Pkt PO 30 ml DAILY@0800 [facility] Administration Amoxicillin/Clavulanate Potassium 1 tab 03/10/17 12:00 03/11/17 09:40 Augmentin - 875mg Tablet PO 1 tab BID@0800,1730 [facility] Administration Aspirin 325 mg 03/10/17 10:00 03/11/17 09:41 Ecotrin - PO 325 mg DAILY [facility] Administration Atorvastatin Calcium 40 mg 03/09/17 22:00 03/10/17 22:05 Lipitor - PO 40 mg HS [facility] Administration Calcium/Vitamin D 2 tab 03/09/17 22:00 03/11/17 09:40 Oscal 250 Mg+D - PO 2 tab BID [facility] Administration Docusate Sodium 200 mg 03/10/17 10:00 03/11/17 09:41 Colace - PO 200 mg DAILY [facility] Administration Guaifenesin 10 ml 03/09/17 10:34 Robitussin - PO Q4H PRN COUGH Lactobacillus Acidophilus 1 tab 03/10/17 12:00 03/11/17 09:40 Bacid - PO 1 tab DAILY [facility] Administration Lisinopril 5 mg 03/10/17 10:00 03/11/17 09:43 Prinivil PO 5 mg DAILY [facility] Administration Objective: Vital Signs Period Temp Pulse Resp BP Sys/Forrester Pulse Ox Last 24 Hr 96.9 F-97.7 F 63-74 18-20 128-153/58-83 94-97 Physical Exam: General: NAD Lungs: CTA bilaterally Heart: RRR, S1S2 Abd: Soft, non-tender, non-distended. Normoactive bowel sounds CBCD WBC 9.0 K/mm3 (4.0-10.0) 03/11/17 06:32 RBC 4.46 M/mm3 (3.60-5.2) 03/11/17 06:32 Hgb 13.1 GM/dL (10.7-15.3) 03/11/17 06:32 Hct 40.2 % (32.4-45.2) 03/11/17 06:32 MCV 90.1 fl (80-96) 03/11/17 06:32 MCHC 32.6 g/dl (32.0-36.0) 03/11/17 06:32 RDW 13.2 % (11.6-15.6) 03/11/17 06:32 Plt Count 218 K/MM3 (134-434) 03/11/17 06:32 MPV 9.7 fl (7.5-11.1) 03/11/17 06:32 CMP Sodium 141 mmol/L (136-145) 03/11/17 06:32 Potassium 4.2 mmol/L (3.5-5.1) 03/11/17 06:32 Chloride 105 mmol/L (98-107) 03/11/17 06:32 Carbon Dioxide 30 mmol/L (21-32) 03/11/17 06:32 Anion Gap 6 (8-16) L 03/11/17 06:32 BUN 19 mg/dL (7-18) H 03/11/17 06:32 Creatinine 0.9 mg/dL (0.55-1.02) 03/11/17 06:32 Creat Clearance w eGFR 59.37 (>60) 03/09/17 02:00 Random Glucose 114 mg/dL (74-106) H 03/11/17 06:32 Calcium 8.9 mg/dL (8.5-10.1) 03/11/17 06:32 Total Bilirubin 0.3 mg/dL (0.2-1.0) D 03/09/17 02:00 AST 20 U/L (15-37) 03/09/17 02:00 ALT 29 U/L (12-78) 03/09/17 02:00 Alkaline Phosphatase 67 U/L (45-117) 03/09/17 02:00 Total Protein 6.0 g/dl (6.4-8.2) L 03/09/17 02:00 Albumin 2.8 g/dl (3.4-5.0) L 03/09/17 02:00 CARDIAC ENZYMES Creatine Kinase 36 IU/L (26-192) 03/09/17 20:15 Troponin I < 0.02 ng/ml (0.00-0.05) 03/09/17 20:15 Microbiology 03/09/17 02:30 Urine - Urine - Catheterized Urine Culture - Preliminary Proteus Mirabilis Group D Strep Or Entero Coccus Assessment: This is an 86 year old female with PMHx of dementia, HTN, anxiety, who presented to the ED with a syncopal episode Plan: 1) Syncope: - "1 minute of unresponsiveness" per [facility] records - Tele monitoring: no arrhythmia - ECHO reviewed - No signs of ACS - Head CT with no evidence of acute intracranial hemorrhage, edema, midline shift, mass effect, or skull fracture. Old infarct left basal ganglia - Appreciate neurology consult - Appreciate cardiology consult 2) UTI - Urine culture with Proteus mirabilis and group D strep or entero coccus - Awaiting final c/s - Continue Augmentin 3) HLD - Continue Lipitor 4) F/E/N: - Dysphagia Puree diet - Monitor electrolytes 5) Dispo: - Once final urine culture and sensitivity results CODE STATUS: DNR Visit type - Emergency Visit Emergency Visit: Yes ED Registration Date: 03/09/17 Care time: The patient presented to the Emergency Department on the above date and was hospitalized for further evaluation of their emergent condition. - New Patient This patient is new to me today: Yes Date on this admission: 03/11/17 - Critical Care Critical Care patient: No
[2017-03-11] MEDS: ATORVASTATIN CA 40 MG TABLET (FP) PO SCH (21:57)
[2017-03-12] MEDS: CALCIUM 250MG/VIT-D 125 UNITS 1 COMBO TABLET PO SCH (09:27)
[2017-03-12] MEDS: AMINO ACIDS/PROTEIN HYDROLYS 30 ML LIQUID.PKT PO SCH (09:27)
[2017-03-12] MEDS: LACTOBACILLUS ACIDOPHILUS 1 EACH TAB (FP) PO SCH (09:27)
[2017-03-12] MEDS: AMOX TR/POT CLAV 875MG/125MG TABLETS (FP) PO SCH ×2 (09:28→17:22)
[2017-03-12] MEDS: DOCUSATE SODIUM 100 MG CAPSULE (FP) PO SCH (09:28)
[2017-03-12] MEDS: LISINOPRIL 5 MG TABLET (FP) PO SCH (09:28)
[2017-03-12] MEDS: ASPIRIN 325 MG ENTERIC COATED TABLET (FP) PO SCH (09:28)
--- NOTE | 2017-03-12 11:02 | PN ---
Progress Note, Physician Chief Complaint: syncope History of Present Illness: appears comfortable, pleasant, calm. non-communicative - Current Medication List Current Medications: Active Medications Acetaminophen (Tylenol -) 650 mg PO Q6H PRN PRN Reason: PAIN Last Admin: 03/12/17 09:27 Dose: 650 mg Amino Acids (Prosource No Carb Liquid Pkt) 30 ml PO DAILY@0800 [facility] Last Admin: 03/12/17 09:27 Dose: 30 ml Amoxicillin/Clavulanate Potassium (Augmentin - 875mg Tablet) 1 tab PO BID@0800, 1730 [facility] Last Admin: 03/12/17 09:28 Dose: 1 tab Aspirin (Ecotrin -) 325 mg PO DAILY [facility] Last Admin: 03/12/17 09:28 Dose: 325 mg Atorvastatin Calcium (Lipitor -) 40 mg PO HS [facility] Last Admin: 03/11/17 21:57 Dose: 40 mg Calcium/Vitamin D (Oscal 250 Mg+D -) 2 tab PO BID [facility] Last Admin: 03/12/17 09:27 Dose: 2 tab Docusate Sodium (Colace -) 200 mg PO DAILY [facility] Last Admin: 03/12/17 09:28 Dose: 200 mg Guaifenesin (Robitussin -) 10 ml PO Q4H PRN PRN Reason: COUGH Lactobacillus Acidophilus (Bacid -) 1 tab PO DAILY [facility] Last Admin: 03/12/17 09:27 Dose: 1 tab Lisinopril (Prinivil) 5 mg PO DAILY [facility] Last Admin: 03/12/17 09:28 Dose: 5 mg - Objective Vital Signs: Vital Signs Temperature 98.0 F 03/12/17 05:45 Pulse Rate 56 L 03/12/17 05:45 Respiratory Rate 20 03/12/17 05:45 Blood Pressure 125/53 03/12/17 05:45 O2 Sat by Pulse Oximetry (%) 95 03/11/17 22:00 Constitutional: Yes: Well Nourished, No Distress, Calm Cardiovascular: Yes: Regular Rate and Rhythm, S1, S2. No: Gallop, Murmur Respiratory: Yes: Regular, CTA Bilaterally (not taking deep breaths). No: Accessory Muscle Use, Rales, Wheezes Extremities: No: Cold Edema: No Neurological: Yes: Alert. No: Oriented, Seizure Psychiatric: No: Agitated Labs: CBC, BMP 03/11/17 06:32 03/11/17 06:32 - ....Imaging EKG: Other (tele: NSR, no vianca, no VT) Assessment/Plan ekg: sr with av delay. incomplete rbbb. non-specific t wave ab in inf leads. (prior anterior twi no longer seen, new av delay and qrs widening). tele: sr echo 03/2017: nl lv/rv size and fn. 1+ ar. carotid u/s: very limited/non-diagnostic exam. Small plaque on right without increased measured velocities, left side not evaluated. 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 A/P 86 yo with pmhx of htn, cva with residual rt hemiparesis, severe alzheimer's ( mumbles/otherwise nonverbal), gerd who presents with syncope syncope - details unavailable due to pt dementia, ? if true syncope ("1 min of unresponsiveness" per [place] records) - tele monitoring x 48 hrs now has shown no bradyarrhtyhmia or culprit tachyarrhythmia--d/c monitor - echo unremarkable - no signs of ACS (ce's neg x 2. no acute ischemic changes on ekg) - no acute pathology on head ct, no acute CVA suspected by neurology. carotid u/ s not diagnostic and would not change mgmt as this pt is not a candidate for CEA regardless - episode of unresponsiveness may very well have been due to UTI (in pt with baseline impaired cognition/sensorium)--abx per pmd Vtach: -NSVT 7 beat run -no prognostic significance in pt with normal echo -K/Mag at aggressive targets--replete PRN -requires no further w/u or treatment htn - bp reasonably controlled here - continue lisinopril, observe trend old L b.g. cva with right hemiparesis, bed bound: - on high dose asa and statin as outpatient, prior tx plan not changed here - no evidence of acute CVA here, per neuro D/C TELEMETRY (again)
--- NOTE | 2017-03-12 11:48 | PN ---
Progress Note (short form) - Note Progress Note: Medical coverage for Dr. Mercado Subjective: The patient was seen and examined at the bedside, she is non-verbal today but is shaking her head that she is not having pain tody Current Medications Generic Name Dose Route Start Last Admin Trade Name Freq PRN Reason Stop Dose Admin Acetaminophen 650 mg 03/09/17 10:34 03/12/17 09:27 Tylenol - PO 650 mg Q6H PRN Administration PAIN Amino Acids 30 ml 03/10/17 08:00 03/12/17 09:27 Prosource No Carb Liquid Pkt PO 30 ml DAILY@0800 [facility] Administration Amoxicillin/Clavulanate Potassium 1 tab 03/10/17 12:00 03/12/17 09:28 Augmentin - 875mg Tablet PO 1 tab BID@0800,1730 [facility] Administration Aspirin 325 mg 03/10/17 10:00 03/12/17 09:28 Ecotrin - PO 325 mg DAILY [facility] Administration Atorvastatin Calcium 40 mg 03/09/17 22:00 03/11/17 21:57 Lipitor - PO 40 mg HS [facility] Administration Calcium/Vitamin D 2 tab 03/09/17 22:00 03/12/17 09:27 Oscal 250 Mg+D - PO 2 tab BID [facility] Administration Docusate Sodium 200 mg 03/10/17 10:00 03/12/17 09:28 Colace - PO 200 mg DAILY [facility] Administration Guaifenesin 10 ml 03/09/17 10:34 Robitussin - PO Q4H PRN COUGH Lactobacillus Acidophilus 1 tab 03/10/17 12:00 03/12/17 09:27 Bacid - PO 1 tab DAILY [facility] Administration Lisinopril 5 mg 03/10/17 10:00 03/12/17 09:28 Prinivil PO 5 mg DAILY [facility] Administration Objective: Vital Signs Period Temp Pulse Resp BP Sys/Forrester Pulse Ox Last 24 Hr 97.3 F-98.2 F 56-84 18-20 106-137/44-70 95-97 Physical Exam: General: NAD Lungs: CTA bilaterally Heart: RRR, S1S2 Abd: Soft, non-tender, non-distended. Normoactive bowel sounds CBCD WBC 9.0 K/mm3 (4.0-10.0) 03/11/17 06:32 RBC 4.46 M/mm3 (3.60-5.2) 03/11/17 06:32 Hgb 13.1 GM/dL (10.7-15.3) 03/11/17 06:32 Hct 40.2 % (32.4-45.2) 03/11/17 06:32 MCV 90.1 fl (80-96) 03/11/17 06:32 MCHC 32.6 g/dl (32.0-36.0) 03/11/17 06:32 RDW 13.2 % (11.6-15.6) 03/11/17 06:32 Plt Count 218 K/MM3 (134-434) 03/11/17 06:32 MPV 9.7 fl (7.5-11.1) 03/11/17 06:32 CMP Sodium 141 mmol/L (136-145) 03/11/17 06:32 Potassium 4.2 mmol/L (3.5-5.1) 03/11/17 06:32 Chloride 105 mmol/L (98-107) 03/11/17 06:32 Carbon Dioxide 30 mmol/L (21-32) 03/11/17 06:32 Anion Gap 6 (8-16) L 03/11/17 06:32 BUN 19 mg/dL (7-18) H 03/11/17 06:32 Creatinine 0.9 mg/dL (0.55-1.02) 03/11/17 06:32 Creat Clearance w eGFR 59.37 (>60) 03/09/17 02:00 Random Glucose 114 mg/dL (74-106) H 03/11/17 06:32 Calcium 8.9 mg/dL (8.5-10.1) 03/11/17 06:32 Total Bilirubin 0.3 mg/dL (0.2-1.0) D 03/09/17 02:00 AST 20 U/L (15-37) 03/09/17 02:00 ALT 29 U/L (12-78) 03/09/17 02:00 Alkaline Phosphatase 67 U/L (45-117) 03/09/17 02:00 Total Protein 6.0 g/dl (6.4-8.2) L 03/09/17 02:00 Albumin 2.8 g/dl (3.4-5.0) L 03/09/17 02:00 CARDIAC ENZYMES Creatine Kinase 36 IU/L (26-192) 03/09/17 20:15 Troponin I < 0.02 ng/ml (0.00-0.05) 03/09/17 20:15 Microbiology 03/09/17 02:30 Urine - Urine - Catheterized Urine Culture - Preliminary Proteus Mirabilis Group D Strep Or Entero Coccus Assessment: This is an 86 year old female with PMHx of dementia, HTN, anxiety, who presented to the ED with a syncopal episode Plan: 1) Syncope: - "1 minute of unresponsiveness" per [facility] - Tele monitoring: no arrhythmia - ECHO reviewed - No signs of ACS - Head CT with no evidence of acute intracranial hemorrhage, edema, midline shift, mass effect, or skull fracture. Old infarct left basal ganglia - Appreciate neurology consult - Appreciate cardiology consult 2) UTI - Urine culture with Proteus mirabilis and group D strep or entero coccus - Awaiting final c/s for enterococcus - Continue Augmentin 3) HLD - Continue Lipitor 4) F/E/N: - Dysphagia Puree diet - Monitor electrolytes 5) Dispo: - Once final urine culture and sensitivity results CODE STATUS: DNR Visit type - Emergency Visit Emergency Visit: Yes ED Registration Date: 03/09/17 Care time: The patient presented to the Emergency Department on the above date and was hospitalized for further evaluation of their emergent condition. - New Patient This patient is new to me today: No - Critical Care Critical Care patient: No
--- NOTE | 2017-03-12 17:27 | DS ---
Physical Examination Vital Signs: Vital Signs Temperature 97.4 F L 03/12/17 14:00 Pulse Rate 64 03/12/17 14:00 Respiratory Rate 20 03/12/17 11:24 Blood Pressure 144/60 03/12/17 14:00 O2 Sat by Pulse Oximetry (%) 95 03/12/17 11:24 Labs: CBC, BMP 03/11/17 06:32 03/11/17 06:32 Discharge Summary Reason For Visit: SYNCOPE Current Active Problems Alzheimer's dementia without behavioral disturbance (Acute) CVA, old, hemiparesis (Acute) HLD (hyperlipidemia) (Acute) HTN (hypertension) (Acute) Syncope (Acute) UTI (urinary tract infection) (Acute) Condition: Stable - Instructions Diet, Activity, Other Instructions: Please return to the ED with new, persistent, or worsening symptoms. Please follow-up with providers as indicated. Referrals: Sid Pride MD [Staff Physician] - 1 Week Jaquan Quiroz MD [Staff Physician] - 1 Week Sacha Allison MD [Staff Physician] - 1 Week Disposition: [facility] - Home Medications Comprehensive Discharge Medication List: Ambulatory Orders Aa/Hydrolyzed Collagen, Whey [Lps Neutral Flavor Liquid] 30 ml PO DAILY Acetaminophen 650 mg PO Q6H PRN 12/26/15 Alendronate Sodium [Binosto] 70 mg PO TU 12/26/15 Calcium Carbonate/Vitamin D3 [Oyster Shell+D 250 mg Tablet] 2 each PO BID Docusate Sodium [Colace -] 200 mg PO DAILY 12/26/15 Guaifenesin [Patience-Tussin] 200 mg PO Q4H PRN 12/26/15 Lisinopril 5 mg PO DAILY 12/26/15 Aspirin [Aspirin EC] 325 mg PO DAILY #30 tablet. 01/05/16 Atorvastatin Ca [Lipitor] 40 mg PO HS #30 tablet 01/05/16 Amox-Tr/K Cl [Augmentin 875-125mg Tablet -] 1 tab PO BID@0800,1730 #8 tablet 05/24 Lactobacillus Acidophilus [Bacid -] 1 tab PO DAILY #30 tab 03/12/17
[2017-03-12 19:29] VITALS: BP 140/62; PULSE 66; TEMP 97.3
== END 2017-03-12 19:00 ==
LOC: JER 00:30 → INTOOBSV 06:50 → UNDOADMOB 06:50 → JERBED 06:50 → J4W 18:50
PROVIDERS: ADMIT Internal Medicine; ATTEND Registered Nurse
PROC: 3E0337Z Introduction of Electrolytic and Water Balance Substance into Peripheral Vein, Percutaneous Approach (ICD-10-PCS; principal; 2017-03-09)
DX: R55 Syncope and collapse (principal); I10 Essential (primary) hypertension; I44.0 Atrioventricular block, first degree; I69.359 Hemiplegia and hemiparesis following cerebral infarction affecting unspecified side; E78.5 Hyperlipidemia, unspecified; G30.9 Alzheimer's disease, unspecified; F02.80 Dementia in other diseases classified elsewhere, unspecified severity, without behavioral disturbance, psychotic disturbance, mood disturbance, and anxiety; F41.9 Anxiety disorder, unspecified; K21.9 Gastro-esophageal reflux disease without esophagitis; I45.19 Other right bundle-branch block; R29.6 Repeated falls; Z79.02 Long term (current) use of antithrombotics/antiplatelets; N39.0 Urinary tract infection, site not specified; I47.2 Ventricular tachycardia
CPT/HCPCS: 36415; 70450-TC; 80048; 80053; 81003; 82550; 83735; 84100; 84443; 84484; 85025; 87086; 87186; 93005; 93010; 93306-TC; 93880-TC; 96360; 96361; 97161-GP; 99284-25; G0378

== ENCOUNTER 2017-07-24 20:35 | Inpatient (IN) | payer OTHER, BC ==
--- NOTE | 2017-07-24 22:35 | PDOC ---
History of Present Illness - General History Source: Patient Exam Limitations: No Limitations - History of Present Illness Initial Comments: 07/24/17 22:36 The patient is an 87-year-old female with past medical history of Alzheimer's, CVA w/ right side hemiparesis, HTN, HLD, GERD, and prior UTI presents to the emergency department from [facility] with altered mental status. As per the alf, the patient was her normal self for breakfast and lunch today, during dinner time, the NH noticed a change to the patients mental status, increase facial droop and wasnt eating anything. As per the son, the MD called him to report a possibility of a stroke attack and wanted to bring her to the ED. The son states when he arrived she didnt recognize him and wasn t verbalizing. The patient on a baseline can mumble and can respond to yes or no questions. Denies nausea or vomiting. Denies diarrhea or constipation. Denies hematuria. Allergies: NKDA Social history: None reported Surgical history: None reported PCP: None reported <Marita Lopez - Last Filed: 07/25/17 02:03> <Rosangela Salinas - Last Filed: 07/25/17 17:37> - General Chief Complaint: Loss of Appetite Stated Complaint: POOR FEEDING Time Seen by Provider: 07/24/17 21:04 Past History <Marita Lopez - Last Filed: 07/25/17 02:03> - Past Medical History Anemia: Yes COPD: No Dementia: Yes (ALZHEIMERS.) GI Disorders: Yes (GERD.) HTN: Yes Psychiatric Problems: Yes (ANXIETY. DEPRESSION.) - Suicide/Smoking/Psychosocial Hx Smoking History: Never smoked Have you smoked in the past 12 months: No Information on smoking cessation initiated: No Hx Alcohol Use: No Drug/Substance Use Hx: No Substance Use Type: None <Rosangela Salinas - Last Filed: 07/25/17 17:37> - Past Medical History Allergies/Adverse Reactions: Allergies Allergy/AdvReac Type Severity Reaction Status Date / Time No Known Allergies Allergy Verified 07/24/17 21:24 Home Medications: Ambulatory Orders Aa/Hydrolyzed Collagen, Whey [Lps Neutral Flavor Liquid] 30 ml PO BID 12/26/15 Acetaminophen 650 mg PO Q6H PRN 12/26/15 Alendronate Sodium [Binosto] 70 mg PO TU 12/26/15 Calcium Carbonate/Vitamin D3 [Oyster Shell+D 250 mg Tablet] 2 each PO BID Docusate Sodium [Colace -] 200 mg PO HS 12/26/15 Guaifenesin [Patience-Tussin] 200 mg PO Q4H PRN 12/26/15 Lisinopril 5 mg PO DAILY 12/26/15 Aspirin [Aspirin EC] 325 mg PO DAILY #30 tablet. 01/05/16 Atorvastatin Ca [Lipitor] 40 mg PO HS #30 tablet 01/05/16 Lactobacillus Acidophilus [Bacid -] 1 tab PO DAILY #30 tab 03/12/17 Cholecalciferol (Vitamin D3) [Vitamin D3] 1,000 unit PO DAILY 07/25/17 Insulin (LOG) Aspart [NovoLOG -] 0 units SQ TID 07/25/17 Review of Systems - Review of Systems Able to Perform ROS?: No Comments:: 07/25/17 02:04 Unable to provide secondary to dementia and prior stroke. <Marita Lopez - Last Filed: 07/25/17 02:03> *Physical Exam - Vital Signs Last Vital Signs Temp Pulse Resp BP Pulse Ox 100.1 F H 90 16 170/62 96 07/24/17 20:40 07/24/17 20:40 07/24/17 20:40 07/24/17 20:40 07/24/17 20:40 - Physical Exam Comments: 07/24/17 22:38 GENERAL: Well developed, well nourished. Awake and alert. No acute distress. HEENT: Normocephalic, atraumatic. PERRLA, EOMI. No conjunctival pallor. Sclera are non- icteric. Moist mucous membranes. Oropharynx is clear. NECK: Supple. Full ROM. No JVD. Carotid pulses 2+ and symmetric, without bruits. No thyromegaly. No lymphadenopathy. CARDIOVASCULAR: Regular rate and rhythm. No murmurs, rubs, or gallops. Distal pulses are 2+ and symmetric. PULMONARY: No evidence of respiratory distress. Lungs clear to auscultation bilaterally. No wheezing, rales or rhonchi. ABDOMINAL: Soft. Non-tender. Non-distended. No rebound or guarding. No organomegaly. Normoactive bowel sounds. MUSCULOSKELETAL Normal range of motion at all joints. No bony deformities or tenderness. No CVA tenderness. EXTREMITIES: (+) Contracted right side. Weakness to the legs. Cellulitis. No cyanosis. No clubbing. No edema. No calf tenderness. SKIN: Warm and dry. Normal capillary refill. No rashes. No jaundice. NEUROLOGICAL: (+) Tracks with eyes, moans. Cant move right side. PSYCHIATRIC: Cooperative. Good eye contact. Appropriate mood and affect. <Marita Lopez - Last Filed: 07/25/17 02:03> - Vital Signs Last Vital Signs Temp Pulse Resp BP Pulse Ox 100.1 F H 90 16 170/62 96 07/24/17 20:40 07/24/17 20:40 07/24/17 20:40 07/24/17 20:40 07/24/17 20:40 <Rosangela Salinas - Last Filed: 07/25/17 17:37> ED Treatment Course - LABORATORY CBC & Chemistry Diagram: 07/24/17 23:50 07/24/17 23:50 <Marita Lopez - Last Filed: 07/25/17 02:03> - LABORATORY CBC & Chemistry Diagram: 07/25/17 06:30 07/25/17 06:30 - RADIOLOGY Radiology Studies Ordered: Category Date Time Status CHEST X-RAY PORTABLE* [RAD] Stat Radiology 07/24/17 21:32 Ordered <Rosangela Salinas - Last Filed: 07/25/17 17:37> *DC/Admit/Observation/Transfer - Attestations Scribe Attestion: 07/24/17 22:38 Documentation prepared by Marita Lopez, acting as medical practice assistant for Rosangela Salinas MD. <Marita Lopez - Last Filed: 07/25/17 02:03> <Rosangela Salinas - Last Filed: 07/25/17 17:37> Diagnosis at time of Disposition: Sepsis - Discharge Dispostion Condition at time of disposition: Stable
[2017-07-24 23:57] LABS: BASO % 0.3 % (0-2.0); EOS % 0.1 % (0-4.5); HEMATOCRIT 42.3 % (32.4-45.2); HEMOGLOBIN 13.8 GM/dL (10.7-15.3); LYMPH % 9.9 % (8-40); MCHC 32.6 g/dl (32.0-36.0); MEAN CELL VOLUME 88.9 fl (80-96); MEAN PLT VOLUME 10.2 fl (7.5-11.1); MONO % 3.9 % (3.8-10.2); NEUT % 85.8 % (42.8-82.8); PLATELET COUNT 231 K/MM3 (134-434); RBC 4.75 M/mm3 (3.60-5.2); RDW 13.5 % (11.6-15.6); WHITE BLOOD COUNT 14.6 K/mm3 (4.0-10.0)
[2017-07-24 23:58] LABS: URINE APPEARANCE CLEAR; URINE BILIRUBIN NEGATIVE (<2.0 mg/dL); URINE COLOR LTYELLOW; URINE GLUCOSE (UA) 1+ (NEGATIVE); URINE KETONE NEGATIVE (NEGATIVE); URINE LEUK ESTERASE NEGATIVE (NEGATIVE); URINE NITRITE NEGATIVE (NEGATIVE); URINE PROTEIN NEGATIVE (NEGATIVE); URINE UROBILINOGEN NEGATIVE mg/dL (0.2-1.0)
[2017-07-25 00:20] LABS: INR 1.03 (0.82-1.09); PROTHROMBIN TIME (PATIENT) 11.6 SEC (9.7-13.0)
[2017-07-25 00:23] LABS: ACTIVATED PTT 26.4 SECONDS (25.2-36.5)
[2017-07-25] MEDS ORDERED: PIPERACILLIN/TAZOB 3.375 GM 3.375 GM in DEXTROSE 5%-WATER - 50 ML IVPB ONE ×3 (00:24→16:30)
[2017-07-25 00:27] LABS: ALBUMIN 3.2 g/dl (3.4-5.0); ALK PHOS 80 U/L (45-117); ANION GAP 10 (8-16); BILIRUBIN,TOTAL 0.4 mg/dL (0.2-1.0); BLOOD UREA NITROGEN 26 mg/dL (7-18); CALCIUM 9.7 mg/dL (8.5-10.1); CHLORIDE 106 mmol/L (98-107); CO2 24 mmol/L (21-32); CREATININE 1.3 mg/dL (0.55-1.02); GLUCOSE,RANDOM 206 mg/dL (74-106); SGOT/AST 21 U/L (15-37); SGPT/ALT 28 U/L (12-78); SODIUM 140 mmol/L (136-145); TOT PROT 7.1 g/dl (6.4-8.2)
[2017-07-25] MEDS ORDERED: PIPERACILLIN/TAZOB 3.375 GM 3.375 GM/50 ML BAG IVPB ONE (01:10)
[2017-07-25] MEDS ORDERED: VANCOMYCIN 1,000 MG in DEXTROSE 5%-WATER - 250 ML IVPB ONE (02:03)
[2017-07-25] MEDS ORDERED: SODIUM CHLORIDE 1,000 ML IV STA (02:11)
[2017-07-25] MEDS ORDERED: VANCOMYCIN 1 GRAM (PRE-DOCKED) 1,000 MG/250 ML BAG IVPB ONE (02:17)
[2017-07-25 02:39] LABS: VENOUS PC02 24.5 mmHg (38-52); VENOUS PH 7.52 (7.32-7.42); VENOUS PO2 96.9 mmHg (28-48)
--- NOTE | 2017-07-25 03:49 | PDOC ---
*Physical Exam - Vital Signs Last Vital Signs Temp Pulse Resp BP Pulse Ox 100.1 F H 68 15 105/83 93 L 07/24/17 20:40 07/25/17 01:16 07/25/17 01:16 07/25/17 01:16 07/25/17 01:16 ED Treatment Course - LABORATORY CBC & Chemistry Diagram: 07/24/17 23:50 07/24/17 23:50 - ADDITIONAL ORDERS Additional order review: Laboratory Results 07/25/17 07/24/17 07/24/17 02:25 23:50 23:50 PT with INR 11.60 INR 1.03 PTT (Actin FS) 26.4 VBG pH 7.52 H POC VBG pCO2 24.5 L POC VBG pO2 96.9 H Mixed VBG HCO3 19.7 Sodium Potassium Chloride Carbon Dioxide Anion Gap BUN Creatinine Creat Clearance w eGFR Random Glucose Lactic Acid Calcium Total Bilirubin AST ALT Alkaline Phosphatase Troponin I Total Protein Albumin Urine Color Ltyellow Urine Appearance Clear Urine pH 6.0 Ur Specific [place] 1.013 Urine Protein Negative Urine Glucose (UA) 1+ H Urine Ketones Negative Urine Blood 1+ H Urine Nitrite Negative Urine Bilirubin Negative Urine Urobilinogen Negative Ur Leukocyte Esterase Negative Urine WBC (Auto) 1 Urine RBC (Auto) 2 07/24/17 07/24/17 07/24/17 23:50 23:50 23:50 PT with INR INR PTT (Actin FS) VBG pH Cancelled POC VBG pCO2 Cancelled POC VBG pO2 Cancelled Mixed VBG HCO3 Cancelled Sodium 140 Potassium 5.0 Chloride 106 Carbon Dioxide 24 Anion Gap 10 BUN 26 H Creatinine 1.3 H Creat Clearance w eGFR 38.75 Random Glucose 206 H Lactic Acid Calcium 9.7 Total Bilirubin 0.4 D AST 21 ALT 28 Alkaline Phosphatase 80 Troponin I < 0.02 Total Protein 7.1 Albumin 3.2 L Urine Color Urine Appearance Urine pH Ur Specific [place] Urine Protein Urine Glucose (UA) Urine Ketones Urine Blood Urine Nitrite Urine Bilirubin Urine Urobilinogen Ur Leukocyte Esterase Urine WBC (Auto) Urine RBC (Auto) 07/24/17 23:40 PT with INR INR PTT (Actin FS) VBG pH POC VBG pCO2 POC VBG pO2 Mixed VBG HCO3 Sodium Potassium Chloride Carbon Dioxide Anion Gap BUN Creatinine Creat Clearance w eGFR Random Glucose Lactic Acid 3.7 H* Calcium Total Bilirubin AST ALT Alkaline Phosphatase Troponin I Total Protein Albumin Urine Color Urine Appearance Urine pH Ur Specific [place] Urine Protein Urine Glucose (UA) Urine Ketones Urine Blood Urine Nitrite Urine Bilirubin Urine Urobilinogen Ur Leukocyte Esterase Urine WBC (Auto) Urine RBC (Auto) 07/24/17 23:50 RBC 4.75 MCV 88.9 MCHC 32.6 RDW 13.5 MPV 10.2 Neutrophils % 85.8 H D Lymphocytes % 9.9 D Monocytes % 3.9 Eosinophils % 0.1 D Basophils % 0.3 - Medications Given in the ED: ED Medications Discontinued Medications Generic Name Dose Route Start Last Admin Trade Name Freq PRN Reason Stop Dose Admin Piperacillin Sod/Tazobactam 50 mls @ 100 mls/hr 07/25/17 00:24 07/25/17 01:09 Sod 3.375 gm/ Dextrose IVPB 07/25/17 00:53 100 mls/hr ONCE ONE Administration Protocol Vancomycin HCl 1,000 mg/ 250 mls @ 166.667 mls/hr 07/25/17 02:03 07/25/17 02: 14 Dextrose IVPB 07/25/17 03:32 166.667 mls/hr ONCE ONE Administration Protocol Sodium Chloride 1,000 mls @ 1,000 mls/hr 07/25/17 02:11 07/25/17 02:33 Normal Saline - IV 07/25/17 03:10 1,000 mls/hr ASDIR STA Administration *DC/Admit/Observation/Transfer Diagnosis at time of Disposition: Sepsis - Discharge Dispostion Condition at time of disposition: Stable Decision to Admit order: Yes - Referrals - Patient Instructions - Post Discharge Activity
--- NOTE | 2017-07-25 04:44 | HP ---
CHIEF COMPLAINT: altered mental status PCP: Shannen HISTORY OF PRESENT ILLNESS: This is an 87 year old female with a past medical history significant for dementia, CVA, HTN, HLD who presented to the ED from [facility] with report of not eating this evening and increased facial droop. HPI and ROS obtained from CT and ED charts as pt has dementia. ER course was notable for: (1) WBC 14.6, lactic acid 3.7 (2) CT abd pelvis unremarkable (3) u/a unremarkable Recent Travel: none PAST MEDICAL HISTORY: Alzheimer's dementia, CVA with R marc 2016, HTN, HLD, GERD, UTI, anxiety/ depression PAST SURGICAL HISTORY: unk Social History: Smoking: unk Alcohol: unk Drugs: unk Family History: unable to obtain Allergies No Known Allergies Allergy (Verified 07/24/17 21:24) HOME MEDICATIONS: 3 Medication Instructions Recorded Aa/Hydrolyzed Collagen, Whey [Lps 30 ml PO DAILY 12/26/15 Neutral Flavor Liquid] Acetaminophen 650 mg PO Q6H PRN 12/26/15 Alendronate Sodium [Binosto] 70 mg PO TU 12/26/15 Calcium Carbonate/Vitamin D3 2 each PO BID 12/26/15 [Oyster Shell+D 250 mg Tablet] Docusate Sodium [Colace -] 200 mg PO DAILY 12/26/15 Guaifenesin [Patience-Tussin] 200 mg PO Q4H PRN 12/26/15 Lisinopril 5 mg PO DAILY 12/26/15 Aspirin [Aspirin EC] 325 mg PO DAILY #30 tablet. 01/05/16 Atorvastatin Ca [Lipitor] 40 mg PO HS #30 tablet 01/05/16 Amox-Tr/K Cl [Augmentin 875-125mg 1 tab PO BID@0800,1730 #8 tablet 03/12/17 Tablet -] Lactobacillus Acidophilus [Bacid -] 1 tab PO DAILY #30 tab 03/12/17 REVIEW OF SYSTEMS--unable to obtain due to dementia NH noted altered mental status PHYSICAL EXAMINATION Vital Signs - 24 hr 3 07/24/17 07/25/17 20:40 01:16 Temperature 100.1 F H Pulse Rate 90 Pulse Rate [ 68 Apical] Respiratory 16 15 Rate Blood Pressure 170/62 Blood Pressure 105/83 [Right Arm] O2 Sat by Pulse 96 93 L Oximetry (%) GENERAL: Awake, alert, and babbling, pt unable to verbalize in coherent sentences, in no acute distress. HEAD: Normal with no signs of trauma. EYES: Pupils equal, round and reactive to light, extraocular movements intact, sclera anicteric, conjunctiva clear. No lid lag. EARS, NOSE, THROAT: Ears normal, nares patent, oropharynx clear without exudates. Moist mucous membranes. NECK: Normal range of motion, supple without lymphadenopathy, JVD, or masses. LUNGS: Breath sounds equal, clear to auscultation bilaterally. No wheezes, and no crackles. No accessory muscle use. HEART: Regular rate and rhythm, normal S1 and S2 without murmur, rub or gallop. ABDOMEN: Soft, nontender, not distended, normoactive bowel sounds, no guarding, no rebound, no masses. No hepatomegaly or splenomegaly. MUSCULOSKELETAL: No bony deformities or tenderness. No CVA tenderness. right elbow, wrist and hand contractures noted UPPER EXTREMITIES: 2+ pulses, warm, well-perfused. No cyanosis. No clubbing. No peripheral edema. LOWER EXTREMITIES: 2+ pulses, warm, well-perfused. No calf tenderness. No peripheral edema. NEUROLOGICAL: right sided facial droop noted, tracks with eyes, no spontaneous movement of right side noted PSYCHIATRIC: Cooperative. Good eye contact. Appropriate mood and affect. SKIN: Warm, dry, normal turgor, no rashes or lesions noted, normal capillary refill. Laboratory Results - last 24 hr 3 07/24/17 07/24/17 07/24/17 23:40 23:50 23:50 WBC 14.6 H D RBC 4.75 Hgb 13.8 Hct 42.3 MCV 88.9 MCH 29.0 MCHC 32.6 RDW 13.5 Plt Count 231 MPV 10.2 Absolute Neuts (auto) 12.5 Neutrophils % 85.8 H D Lymphocytes % 9.9 D Monocytes % 3.9 Eosinophils % 0.1 D Basophils % 0.3 Nucleated RBC % 0 PT with INR INR PTT (Actin FS) VBG pH Cancelled POC VBG pCO2 Cancelled POC VBG pO2 Cancelled Mixed VBG HCO3 Cancelled Sodium Potassium Chloride Carbon Dioxide Anion Gap BUN Creatinine Creat Clearance w eGFR Random Glucose Lactic Acid 3.7 H* Calcium Total Bilirubin AST ALT Alkaline Phosphatase Troponin I Total Protein Albumin Urine Color Urine Appearance Urine pH Ur Specific [place] Urine Protein Urine Glucose (UA) Urine Ketones Urine Blood Urine Nitrite Urine Bilirubin Urine Urobilinogen Ur Leukocyte Esterase Urine WBC (Auto) Urine RBC (Auto) 3 07/24/17 07/24/17 07/24/17 23:50 23:50 23:50 WBC RBC Hgb Hct MCV MCH MCHC RDW Plt Count MPV Absolute Neuts (auto) Neutrophils % Lymphocytes % Monocytes % Eosinophils % Basophils % Nucleated RBC % PT with INR 11.60 INR 1.03 PTT (Actin FS) 26.4 VBG pH POC VBG pCO2 POC VBG pO2 Mixed VBG HCO3 Sodium 140 Potassium 5.0 Chloride 106 Carbon Dioxide 24 Anion Gap 10 BUN 26 H Creatinine 1.3 H Creat Clearance w eGFR 38.75 Random Glucose 206 H Lactic Acid Calcium 9.7 Total Bilirubin 0.4 D AST 21 ALT 28 Alkaline Phosphatase 80 Troponin I < 0.02 Total Protein 7.1 Albumin 3.2 L Urine Color Urine Appearance Urine pH Ur Specific [place] Urine Protein Urine Glucose (UA) Urine Ketones Urine Blood Urine Nitrite Urine Bilirubin Urine Urobilinogen Ur Leukocyte Esterase Urine WBC (Auto) Urine RBC (Auto) 3 07/24/17 07/25/17 23:50 02:25 WBC RBC Hgb Hct MCV MCH MCHC RDW Plt Count MPV Absolute Neuts (auto) Neutrophils % Lymphocytes % Monocytes % Eosinophils % Basophils % Nucleated RBC % PT with INR INR PTT (Actin FS) VBG pH 7.52 H POC VBG pCO2 24.5 L POC VBG pO2 96.9 H Mixed VBG HCO3 19.7 Sodium Potassium Chloride Carbon Dioxide Anion Gap BUN Creatinine Creat Clearance w eGFR Random Glucose Lactic Acid Calcium Total Bilirubin AST ALT Alkaline Phosphatase Troponin I Total Protein Albumin Urine Color Ltyellow Urine Appearance Clear Urine pH 6.0 Ur Specific [place] 1.013 Urine Protein Negative Urine Glucose (UA) 1+ H Urine Ketones Negative Urine Blood 1+ H Urine Nitrite Negative Urine Bilirubin Negative Urine Urobilinogen Negative Ur Leukocyte Esterase Negative Urine WBC (Auto) 1 Urine RBC (Auto) 2 ECG Sinus rhythm with first degree AV block vent rate 88, QTC 488 Incomplete RBBB Anterior infarct, age undetermined Radiology Reports CT abd/pelvis w/o contrast THIS IS A PRELIMINARY REPORT FROM IMAGING CLAIM CLERK IMPRESSION: No acute findings THIS DOCUMENT HAS BEEN ELECTRONICALLY SIGNED Erik Glover MD 07/25/2017 03:00 EST ASSESSMENT/PLAN: 87yF with PMH Alzheimer's dementia, CVA with R marc 2016, HTN, HLD, GERD, UTI, anxiety/depression presented to the ED [place] via EMS for altered mental status. Fever/SIRS/lactic acidosis - unclear source at this time - CXR difficult to read, pt severely rotated, will await official reading, but pt without cough, respiratory distress or hypoxia - U/A not consistent with UTI - CT abd/pel without acute findings - ID consult - will hold on further ABT at this time - repeat lactic acid s/p fluids URI - Cr bump to 1.3 from 0.91 on 06/[address] - BUN also elevated, ? prerenal related to hypovolemia - received 1L bolus in ed, will cont 75cc/hr for now - hold lisinopril until Cr returns to baseline HTN/HLD - cont home lipitor - hold lisinopril due to URI DVT PPX - heparin tid FEN - NS @ 75cc/hr - BMP in am - puree, nectar thick, sodium controlled diet as tolerated Dispo: pt currently requires further observation for management of emergent condition. Visit type - Emergency Visit Emergency Visit: Yes ED Registration Date: 07/24/17 Care time: The patient presented to the Emergency Department on the above date and was hospitalized for further evaluation of their emergent condition. - New Patient This patient is new to me today: Yes Date on this admission: 07/25/17 - Critical Care Critical Care patient: No Hospitalist Screening - Colonoscopy Questionnaire Colonoscopy Questionnaire: Colonoscopy Questionnaire - Patient: 50 - 75 years old and never had a screening colonoscopy: No History of colon or rectal polyps, or CA: Unknown History of IBD, Crohn's disease or UC: Unknown History of abdominal radiation therapy as a child: Unknown - Relative: 1 with colon or rectal CA, or polyps at age 60 or younger: Unknown Colon or rectal CA diagnosed at age 45 or younger: Unknown Multiple relatives with colon or rectal CA: Unknown - Outcome: Screening Result: Negative Screen
[2017-07-25] MEDS: SODIUM CHLORIDE 1,000 ML IV SCH ×2 (04:56→10:44)
[2017-07-25] MEDS ORDERED: PATIENT'S OWN MEDICATION (NON-FORMULARY) (Alendronate Sodium [Binosto] 70 MG) PO SCH ×2 (05:00→05:37)
[2017-07-25] MEDS ORDERED: ACETAMINOPHEN 325 MG TABLET (FP) PO PRN (05:36)
[2017-07-25 07:42] LABS: BASO % 1.1 % (0-2.0); EOS % 0.7 % (0-4.5); HEMATOCRIT 37.9 % (32.4-45.2); HEMOGLOBIN 12.6 GM/dL (10.7-15.3); LYMPH % 22.5 % (8-40); MCH 29.7 pg (25.7-33.7); MCHC 33.2 g/dl (32.0-36.0); MEAN CELL VOLUME 89.6 fl (80-96); MEAN PLT VOLUME 10.1 fl (7.5-11.1); MONO % 9.1 % (3.8-10.2); NEUT % 66.6 % (42.8-82.8); PLATELET COUNT 188 K/MM3 (134-434); RBC 4.23 M/mm3 (3.60-5.2); RDW 13.5 % (11.6-15.6); WHITE BLOOD COUNT 11.3 K/mm3 (4.0-10.0)
[2017-07-25 08:12] LABS: ANION GAP 9 (8-16); BLOOD UREA NITROGEN 24 mg/dL (7-18); CHLORIDE 106 mmol/L (98-107); CO2 25 mmol/L (21-32); GLUCOSE,RANDOM 157 mg/dL (74-106); PHOSPHOROUS 3.5 mg/dL (2.5-4.9); POTASSIUM 4.5 mmol/L (3.5-5.1); SODIUM 140 mmol/L (136-145)
[2017-07-25 08:13] LABS: MAGNESIUM 2.2 mg/dL (1.8-2.4)
[2017-07-25] MEDS: HEPARIN NA (PORCINE) 5,000 UNITS/ML 1ML VIAL SQ SCH ×3 (08:25→22:14)
[2017-07-25] MEDS ORDERED: PATIENT'S OWN MEDICATION (NON-FORMULARY) (Aa/Hydrolyzed Collagen, Whey [Lps Neutral Flavor PO SCH (10:00)
--- NOTE | 2017-07-25 10:01 | PN ---
Progress Note, Physician Chief Complaint: Pt lying in bed in no acute distress. appears confused, calm. unable to verbalize further due to dementia - Current Medication List Current Medications: Active Medications Acetaminophen (Tylenol -) 650 mg PO Q6H PRN PRN Reason: PAIN LEVEL 1-5 Aspirin (Ecotrin -) 325 mg PO DAILY [facility] Atorvastatin Calcium (Lipitor -) 40 mg PO HS [facility] Calcium/Vitamin D (Oscal 250 Mg+D -) 2 tab PO BID [facility] Cholecalciferol (Vitamin D3 -) 1,000 unit PO DAILY [facility] Docusate Sodium (Colace -) 200 mg PO HS [facility] Heparin Sodium (Porcine) (Heparin -) 5,000 unit SQ TID [facility] Last Admin: 07/25/17 08:25 Dose: 5,000 unit Sodium Chloride (Normal Saline -) 1,000 mls @ 75 mls/hr IV ASDIR [facility] Last Admin: 07/25/17 04:56 Dose: 75 mls/hr Piperacillin Sod/Tazobactam (Sod 3.375 gm/ Dextrose) 50 mls @ 100 mls/hr IVPB ONCE ONE; Protocol Stop: 07/25/17 10:16 Lactobacillus Acidophilus (Bacid -) 1 tab PO DAILY [facility] Lisinopril (Prinivil) 5 mg PO DAILY [facility] Non-Formulary Medication (Alendronate Sodium [Binosto]) 70 mg PO Tu@0600 [facility] Polyethylene Glycol (Miralax (For Daily Use) -) 17 gm PO BID [facility] Senna (Senna -) 2 tab PO HS [facility] - Objective Vital Signs: Vital Signs Temperature 97.9 F 07/25/17 06:10 Pulse Rate 57 L 07/25/17 06:10 Respiratory Rate 18 07/25/17 06:10 Blood Pressure 149/65 07/25/17 06:10 O2 Sat by Pulse Oximetry (%) 100 07/25/17 04:44 Constitutional: Yes: Well Nourished, No Distress, Calm Cardiovascular: Yes: WNL, Regular Rate and Rhythm. No: Gallop, Murmur Respiratory: Yes: WNL, Regular, CTA Bilaterally. No: Accessory Muscle Use, Cough, SOB, Tachypnea, Wheezes Gastrointestinal: Yes: WNL, Normal Bowel Sounds, Soft, Abdomen, Obese. No: Distention, Tenderness Genitourinary: Yes: Incontinence Edema: No Neurological: Yes: Confusion, Pre-Existing Deficit (right hemiparesis, baseline) Psychiatric: Yes: Alert Labs: CBC, BMP 07/25/17 06:30 07/25/17 06:30 INR, PTT INR 1.03 (0.82-1.09) 07/24/17 23:50 - ....Imaging Chest X-ray: Report Reviewed Cat Scan: Pending (Head CT, no acute findings), Report Reviewed (Abd CT- fecal impaction of rectum, otherwise unremarkable) Problem List - Problems (1) Sepsis Assessment/Plan: source unclear +fever, leukocytosis, altered mental status, lactic acidosis UA, chest xray, abd ct neg UC pending Received ivf, vanco x1, zosyn x 3 ID consult pending Code(s): A41.9 - SEPSIS, UNSPECIFIED ORGANISM (2) Leukocytosis Assessment/Plan: improving as above Code(s): D72.829 - ELEVATED WHITE BLOOD CELL COUNT, UNSPECIFIED (3) Acute metabolic encephalopathy Assessment/Plan: AMS from baseline at admission per SNF and son secondary to sepsis appears at baseline during my interaction head CT without acute findings treat underlying condition Code(s): G93.41 - METABOLIC ENCEPHALOPATHY (4) Fecal impaction in rectum Assessment/Plan: abd CT- fecal impaction in rectum colace/miralax/senna enemax1 Code(s): K56.41 - FECAL IMPACTION (5) URI (acute kidney injury) Assessment/Plan: pre-renal, improving s/p ivf continue IVF will monitor Code(s): N17.9 - ACUTE KIDNEY FAILURE, UNSPECIFIED (6) Alzheimer's dementia without behavioral disturbance Assessment/Plan: chronic dysphagia pureed diet aspiration precautions will monitor Code(s): G30.9 - ALZHEIMER'S DISEASE, UNSPECIFIED; F02.80 - DEMENTIA IN OTH DISEASES CLASSD ELSWHR W/O BEHAVRL DISTURB (7) CVA, old, hemiparesis Assessment/Plan: CVA, 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, chronic ASA 325mg daily/statin Code(s): I69.359 - HEMIPLGA FOLLOWING CEREBRAL INFARCTION AFFECTING UNSP SIDE (8) HLD (hyperlipidemia) Assessment/Plan: chronic continue statin Code(s): E78.5 - HYPERLIPIDEMIA, UNSPECIFIED (9) HTN (hypertension) Assessment/Plan: controlled continue lisinopril Code(s): I10 - ESSENTIAL (PRIMARY) HYPERTENSION Qualifiers: Hypertension type: essential hypertension Qualified Code(s): I10 - Essential (primary) hypertension (10) GERD (gastroesophageal reflux disease) Assessment/Plan: chronic ppi while inpt Code(s): K21.9 - GASTRO-ESOPHAGEAL REFLUX DISEASE WITHOUT ESOPHAGITIS Qualifiers: Esophagitis presence: without esophagitis Qualified Code(s): K21.9 - Gastro -esophageal reflux disease without esophagitis
[2017-07-25] MEDS ORDERED: PT OWN MED DRAWER 7, Y5N ONE ×3 (10:34→20:38)
[2017-07-25] MEDS ORDERED: DEXTROSE 5%-WATER - 50 ML IVPB ONE ×2 (10:35→18:08)
[2017-07-25] MEDS ORDERED: PIPERACILLIN/TAZOBACTAM 3.375 GM VIAL IVPB ONE ×2 (10:35→18:08)
[2017-07-25] MEDS: LACTOBACILLUS ACIDOPHILUS 1 TABLET PO SCH (10:45)
[2017-07-25] MEDS: LISINOPRIL 5 MG TABLET (FP) PO SCH (10:45)
[2017-07-25] MEDS: POLYETHYLENE GLYCOL 3350 119 GM BTL PO SCH ×2 (10:45→22:10)
[2017-07-25] MEDS: CHOLECALCIFEROL (VITAMIN D3) 1,000 UNIT TABLET (FP) PO SCH (10:45)
[2017-07-25] MEDS: CALCIUM 250MG/VIT-D 125 UNITS 1 COMBO TABLET PO SCH ×2 (14:13→22:10)
[2017-07-25] MEDS: ASPIRIN 325 MG ENTERIC COATED TABLET (FP) PO SCH (14:13)
[2017-07-25] MEDS: DOCUSATE SODIUM 100 MG CAPSULE (FP) PO SCH ×2 (14:15→22:09)
[2017-07-25] MEDS: PANTOPRAZOLE 40 MG TABLET (FP) PO SCH (14:15)
--- NOTE | 2017-07-25 15:05 | EKG ---
Test Reason : Blood Pressure : / mmHG Vent. Rate : 088 BPM Atrial Rate : 088 BPM P-R Int : 220 ms QRS Dur : 112 ms QT Int : 404 ms P-R-T Axes : 053 039 -18 degrees QTc Int : 488 ms SINUS RHYTHM WITH 1ST DEGREE A-V BLOCK INCOMPLETE RIGHT BUNDLE BRANCH BLOCK ANTERIOR INFARCT , AGE UNDETERMINED ABNORMAL ECG NONSPECIFIC T WAVE ABNORMALITY Confirmed by MD Mercado Edward ([id number]) on 07/25/2017 3:04:39 PM Referred By: Confirmed By:Yifan Mercado MD
[2017-07-25 16:25] VITALS: BMI 25.2
--- NOTE | 2017-07-25 17:51 | CON.ID ---
Consult Consult Specialty:: infectious diseases Reason for Consultation:: sepsis,lactic acidosis - History of Present Illness Chief Complaint: not eating,weakness History of Present Illness: This is an 87 year old female with a past medical history significant for dementia, CVA, HTN, HLD who presented to the ED from [facility] with report of not eating this evening and increased facial droop. 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 Cardio/Vascular: Yes: HTN Gastrointestinal: Yes: GERD - Alcohol/Substance Use Hx Alcohol Use: No - Smoking History Smoking history: Never smoked Have you smoked in the past 12 months: No - Social History Usual Living Arrangement: [facility] (was ambulatory for short distances with assistance) ADL: Support Services History of Recent Travel: No Home Medications - Allergies Allergies/Adverse Reactions: Allergies Allergy/AdvReac Type Severity Reaction Status Date / Time No Known Allergies Allergy Verified 07/24/17 21:24 - Home Medications Home Medications: Ambulatory Orders Aa/Hydrolyzed Collagen, Whey [Lps Neutral Flavor Liquid] 30 ml PO BID 12/26/15 Acetaminophen 650 mg PO Q6H PRN 12/26/15 Alendronate Sodium [Binosto] 70 mg PO TU 12/26/15 Calcium Carbonate/Vitamin D3 [Oyster Shell+D 250 mg Tablet] 2 each PO BID Docusate Sodium [Colace -] 200 mg PO HS 12/26/15 Guaifenesin [Patience-Tussin] 200 mg PO Q4H PRN 12/26/15 Lisinopril 5 mg PO DAILY 12/26/15 Aspirin [Aspirin EC] 325 mg PO DAILY #30 tablet. 01/05/16 Atorvastatin Ca [Lipitor] 40 mg PO HS #30 tablet 01/05/16 Lactobacillus Acidophilus [Bacid -] 1 tab PO DAILY #30 tab 03/12/17 Cholecalciferol (Vitamin D3) [Vitamin D3] 1,000 unit PO DAILY 07/25/17 Insulin (LOG) Aspart [NovoLOG -] 0 units SQ TID 07/25/17 Review of Systems Unable to obtain ROS, reason: unable to obtain Physical Exam Vital Signs: Vital Signs Temperature 98.5 F 06/19/18 14:07 Pulse Rate 56 L 07/25/17 14:07 Respiratory Rate 18 07/25/17 14:07 Blood Pressure 156/80 07/25/17 14:07 O2 Sat by Pulse Oximetry (%) 100 07/25/17 13:05 Constitutional: Yes: Well Nourished, No Distress, Calm Eyes: Yes: Conjunctiva Clear HENT: Yes: Atraumatic, Normocephalic Cardiovascular: Yes: Regular Rate and Rhythm Respiratory: Yes: Regular, CTA Bilaterally Gastrointestinal: Yes: Normal Bowel Sounds, Soft Renal/: Yes: Incontinence Musculoskeletal: Yes: Other Extremities: Yes: Other Neurological: Yes: Alert, Confusion, Other (rt sided weakness chronic) Labs: CBC, BMP 07/25/17 06:30 07/25/17 06:30 Imaging - Results Chest X-ray: Report Reviewed, Image Reviewed Cat Scan: Report Reviewed, Image Reviewed Assessment/Plan Problem List - Problems (1) Sepsis Code(s): A41.9 - SEPSIS, UNSPECIFIED ORGANISM (2) Leukocytosis Code(s): D72.829 - ELEVATED WHITE BLOOD CELL COUNT, UNSPECIFIED (3) Acute metabolic encephalopathy Code(s): G93.41 - METABOLIC ENCEPHALOPATHY (4) Fecal impaction in rectum Code(s): K56.41 - FECAL IMPACTION (5) URI (acute kidney injury) Code(s): N17.9 - ACUTE KIDNEY FAILURE, UNSPECIFIED (6) Alzheimer's dementia without behavioral disturbance Code(s): G30.9 - ALZHEIMER'S DISEASE, UNSPECIFIED; F02.80 - DEMENTIA IN OTH DISEASES CLASSD ELSWHR W/O BEHAVRL DISTURB (7) CVA, old, hemiparesis Code(s): I69.359 - HEMIPLGA FOLLOWING CEREBRAL INFARCTION AFFECTING UNSP SIDE (8) HLD (hyperlipidemia) Code(s): E78.5 - HYPERLIPIDEMIA, UNSPECIFIED (9) HTN (hypertension) Code(s): I10 - ESSENTIAL (PRIMARY) HYPERTENSION Qualifiers: Hypertension type: essential hypertension Qualified Code(s): I10 - Essential (primary) hypertension (10) GERD (gastroesophageal reflux disease) Code(s): K21.9 - GASTRO-ESOPHAGEAL REFLUX DISEASE WITHOUT ESOPHAGITIS Qualifiers: Esophagitis presence: without esophagitis Qualified Code(s): K21.9 - Gastro -esophageal reflux disease without esophagitis patient also has it seems patient has constipation plan await for all cx reports will start zosyn hydration rest as per the team consider enemas for the patient
[2017-07-25] MEDS ORDERED: PIPERACILLIN/TAZOB 3.375 GM 3.375 GM in DEXTROSE 5%-WATER - 50 ML IVPB SCH (18:00)
[2017-07-25] MEDS ORDERED: DOCUSATE SODIUM 100 MG CAPSULE (FP) PO SCH (22:00)
[2017-07-25] MEDS: SENNOSIDES 8.6MG TABLET (FP) PO SCH (22:10)
[2017-07-25] MEDS: ATORVASTATIN CA 40 MG TABLET (FP) PO SCH (22:10)
[2017-07-26] MEDS ORDERED: DEXTROSE 5%-WATER - 50 ML IVPB ONE ×3 (01:32→18:26)
[2017-07-26] MEDS ORDERED: PIPERACILLIN/TAZOBACTAM 3.375 GM VIAL IVPB ONE ×3 (01:32→18:26)
[2017-07-26] MEDS: SODIUM CHLORIDE 1,000 ML IV SCH ×2 (01:42→06:23)
[2017-07-26] MEDS: PIPERACILLIN/TAZOB 3.375 GM 3.375 GM in DEXTROSE 5%-WATER - 50 ML IVPB SCH ×3 (01:43→18:28)
[2017-07-26] MEDS: HEPARIN NA (PORCINE) 5,000 UNITS/ML 1ML VIAL SQ SCH ×3 (06:24→21:30)
[2017-07-26] MEDS: DOCUSATE SODIUM 100 MG CAPSULE (FP) PO SCH ×4 (06:24→21:30)
[2017-07-26 06:59] LABS: BASO % 0.7 % (0-2.0); HEMATOCRIT 36.3 % (32.4-45.2); HEMOGLOBIN 12.3 GM/dL (10.7-15.3); LYMPH % 31.4 % (8-40); MCH 30.1 pg (25.7-33.7); MCHC 33.7 g/dl (32.0-36.0); MEAN CELL VOLUME 89.3 fl (80-96); MEAN PLT VOLUME 9.7 fl (7.5-11.1); MONO % 10.9 % (3.8-10.2); PLATELET COUNT 195 K/MM3 (134-434); RBC 4.07 M/mm3 (3.60-5.2); RDW 13.8 % (11.6-15.6); WHITE BLOOD COUNT 8.5 K/mm3 (4.0-10.0)
[2017-07-26 07:27] LABS: ANION GAP 7 (8-16); BLOOD UREA NITROGEN 16 mg/dL (7-18); CHLORIDE 108 mmol/L (98-107); CO2 28 mmol/L (21-32); GLUCOSE,RANDOM 121 mg/dL (74-106); SODIUM 143 mmol/L (136-145)
[2017-07-26 07:28] LABS: MAGNESIUM 2.1 mg/dL (1.8-2.4); POTASSIUM 4.5 mmol/L (3.5-5.1)
--- NOTE | 2017-07-26 09:35 | PN ---
Progress Note, Physician Chief Complaint: Pt lying in bed in no acute distress. appears confused, calm. unable to verbalize further due to dementia - Current Medication List Current Medications: Active Medications Acetaminophen (Tylenol -) 650 mg PO Q6H PRN PRN Reason: PAIN LEVEL 1-5 Aspirin (Ecotrin -) 325 mg PO DAILY [facility] Last Admin: 07/25/17 14:13 Dose: 325 mg Atorvastatin Calcium (Lipitor -) 40 mg PO HS [facility] Last Admin: 07/25/17 22:10 Dose: 40 mg Calcium/Vitamin D (Oscal 250 Mg+D -) 2 tab PO BID [facility] Last Admin: 07/25/17 22:10 Dose: 2 tab Cholecalciferol (Vitamin D3 -) 1,000 unit PO DAILY [facility] Last Admin: 07/25/17 10:45 Dose: 1,000 unit Docusate Sodium (Colace -) 100 mg PO TID [facility] Last Admin: 07/26/17 06:38 Dose: Not Given Heparin Sodium (Porcine) (Heparin -) 5,000 unit SQ TID [facility] Last Admin: 07/26/17 06:24 Dose: 5,000 unit Sodium Chloride (Normal Saline -) 1,000 mls @ 75 mls/hr IV ASDIR [facility] Last Admin: 07/26/17 06:23 Dose: Not Given Piperacillin Sod/Tazobactam (Sod 3.375 gm/ Dextrose) 50 mls @ 100 mls/hr IVPB Q8H-IV [facility]; Protocol Last Admin: 07/26/17 01:43 Dose: 100 mls/hr Lactobacillus Acidophilus (Bacid -) 1 tab PO DAILY [facility] Last Admin: 07/25/17 10:45 Dose: 1 tab Lisinopril (Prinivil) 5 mg PO DAILY [facility] Last Admin: 07/25/17 10:45 Dose: 5 mg Pantoprazole Sodium (Protonix -) 40 mg PO DAILY [facility] Last Admin: 07/25/17 14:15 Dose: 40 mg Polyethylene Glycol (Miralax (For Daily Use) -) 17 gm PO BID [facility] Last Admin: 07/25/17 22:10 Dose: 17 gm Senna (Senna -) 2 tab PO HS [facility] Last Admin: 07/25/17 22:10 Dose: 2 tab - Objective Vital Signs: Vital Signs Temperature 98.1 F 07/26/17 08:49 Pulse Rate 60 07/26/17 08:49 Respiratory Rate 18 07/26/17 08:49 Blood Pressure 143/65 07/26/17 08:49 O2 Sat by Pulse Oximetry (%) 95 07/25/17 21:00 Constitutional: Yes: Well Nourished, No Distress, Calm Cardiovascular: Yes: WNL, Regular Rate and Rhythm. No: Gallop, Murmur Respiratory: Yes: WNL, Regular, CTA Bilaterally. No: Accessory Muscle Use, Rhonchi, SOB, Tachypnea Gastrointestinal: Yes: WNL, Normal Bowel Sounds, Soft, Abdomen, Obese. No: Distention, Tenderness Genitourinary: Yes: Incontinence Edema: No Neurological: Yes: Alert, Confusion, Pre-Existing Deficit (right sided hemiparesis- chronic) Psychiatric: Yes: Alert Labs: CBC, BMP 07/26/17 05:50 07/26/17 05:50 INR, PTT INR 1.03 (0.82-1.09) 07/24/17 23:50 Problem List - Problems (1) Sepsis Code(s): A41.9 - SEPSIS, UNSPECIFIED ORGANISM (2) Leukocytosis Code(s): D72.829 - ELEVATED WHITE BLOOD CELL COUNT, UNSPECIFIED (3) Acute metabolic encephalopathy Code(s): G93.41 - METABOLIC ENCEPHALOPATHY (4) Fecal impaction in rectum Code(s): K56.41 - FECAL IMPACTION (5) URI (acute kidney injury) Code(s): N17.9 - ACUTE KIDNEY FAILURE, UNSPECIFIED (6) Alzheimer's dementia without behavioral disturbance Code(s): G30.9 - ALZHEIMER'S DISEASE, UNSPECIFIED; F02.80 - DEMENTIA IN OTH DISEASES CLASSD ELSWHR W/O BEHAVRL DISTURB (7) CVA, old, hemiparesis Code(s): I69.359 - HEMIPLGA FOLLOWING CEREBRAL INFARCTION AFFECTING UNSP SIDE (8) HLD (hyperlipidemia) Code(s): E78.5 - HYPERLIPIDEMIA, UNSPECIFIED (9) HTN (hypertension) Code(s): I10 - ESSENTIAL (PRIMARY) HYPERTENSION Qualifiers: Hypertension type: essential hypertension Qualified Code(s): I10 - Essential (primary) hypertension (10) GERD (gastroesophageal reflux disease) Code(s): K21.9 - GASTRO-ESOPHAGEAL REFLUX DISEASE WITHOUT ESOPHAGITIS Qualifiers: Esophagitis presence: without esophagitis Qualified Code(s): K21.9 - Gastro -esophageal reflux disease without esophagitis Assessment/Plan (1) Sepsis Assessment/Plan: improved, pt afebrile, leukocytosis/lactic acidosis resolved source unclear mental status at baseline UA, chest xray, abd ct neg, blood cultures neg UC pending Zosyn day 2 transition to PO antibiotics after 72 hours of IV antibiotics ID following Code(s): A41.9 - SEPSIS, UNSPECIFIED ORGANISM (2) Leukocytosis Assessment/Plan: resolved Code(s): D72.829 - ELEVATED WHITE BLOOD CELL COUNT, UNSPECIFIED (3) Acute metabolic encephalopathy Assessment/Plan: as baseline now head CT without acute findings Code(s): G93.41 - METABOLIC ENCEPHALOPATHY (4) Fecal impaction in rectum Assessment/Plan: resolved having BMs colace/miralax/senna Code(s): K56.41 - FECAL IMPACTION (5) URI (acute kidney injury) Assessment/Plan: Improved Code(s): N17.9 - ACUTE KIDNEY FAILURE, UNSPECIFIED (6) Alzheimer's dementia without behavioral disturbance Assessment/Plan: chronic dysphagia pureed diet aspiration precautions will monitor Code(s): G30.9 - ALZHEIMER'S DISEASE, UNSPECIFIED; F02.80 - DEMENTIA IN OTH DISEASES CLASSD ELSWHR W/O BEHAVRL DISTURB (7) CVA, old, hemiparesis Assessment/Plan: CVA, 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, chronic ASA 325mg daily/statin Code(s): I69.359 - HEMIPLGA FOLLOWING CEREBRAL INFARCTION AFFECTING UNSP SIDE (8) HLD (hyperlipidemia) Assessment/Plan: chronic continue statin Code(s): E78.5 - HYPERLIPIDEMIA, UNSPECIFIED (9) HTN (hypertension) Assessment/Plan: controlled continue lisinopril Code(s): I10 - ESSENTIAL (PRIMARY) HYPERTENSION Qualifiers: Hypertension type: essential hypertension Qualified Code(s): I10 - Essential (primary) hypertension (10) GERD (gastroesophageal reflux disease) Assessment/Plan: chronic ppi while inpt Code(s): K21.9 - GASTRO-ESOPHAGEAL REFLUX DISEASE WITHOUT ESOPHAGITIS Qualifiers: Esophagitis presence: without esophagitis Qualified Code(s): K21.9 - Gastro -esophageal reflux disease without esophagitis Dispo: SNF, if no further clinical changes,transition to po antibiotics tomorrow and d/c. awaiting ID clearance
[2017-07-26] MEDS ORDERED: PT OWN MED DRAWER 7, Y5N ONE ×2 (10:31→11:31)
[2017-07-26] MEDS: CALCIUM 250MG/VIT-D 125 UNITS 1 COMBO TABLET PO SCH ×2 (10:38→21:30)
[2017-07-26] MEDS: LACTOBACILLUS ACIDOPHILUS 1 TABLET PO SCH (10:39)
[2017-07-26] MEDS: CHOLECALCIFEROL (VITAMIN D3) 1,000 UNIT TABLET (FP) PO SCH (10:40)
[2017-07-26] MEDS: LISINOPRIL 5 MG TABLET (FP) PO SCH (10:40)
[2017-07-26] MEDS: ASPIRIN 325 MG ENTERIC COATED TABLET (FP) PO SCH (10:45)
[2017-07-26] MEDS: PANTOPRAZOLE 40 MG TABLET (FP) PO SCH (10:45)
[2017-07-26] MEDS: POLYETHYLENE GLYCOL 3350 119 GM BTL PO SCH ×2 (10:56→21:34)
--- NOTE | 2017-07-26 13:42 | PN ---
Progress Note, Physician History of Present Illness: stable no new issues - Current Medication List Current Medications: Active Medications Acetaminophen (Tylenol -) 650 mg PO Q6H PRN PRN Reason: PAIN LEVEL 1-5 Aspirin (Ecotrin -) 325 mg PO DAILY [facility] Last Admin: 07/25/17 14:13 Dose: 325 mg Atorvastatin Calcium (Lipitor -) 40 mg PO HS [facility] Last Admin: 07/25/17 22:10 Dose: 40 mg Calcium/Vitamin D (Oscal 250 Mg+D -) 2 tab PO BID [facility] Last Admin: 07/26/17 10:38 Dose: 2 tab Cholecalciferol (Vitamin D3 -) 1,000 unit PO DAILY [facility] Last Admin: 07/26/17 10:40 Dose: 1,000 unit Docusate Sodium (Colace -) 100 mg PO TID [facility] Last Admin: 07/26/17 06:38 Dose: Not Given Heparin Sodium (Porcine) (Heparin -) 5,000 unit SQ TID [facility] Last Admin: 07/26/17 06:24 Dose: 5,000 unit Piperacillin Sod/Tazobactam (Sod 3.375 gm/ Dextrose) 50 mls @ 100 mls/hr IVPB Q8H-IV [facility]; Protocol Last Admin: 07/26/17 10:37 Dose: 100 mls/hr Lactobacillus Acidophilus (Bacid -) 1 tab PO DAILY [facility] Last Admin: 07/26/17 10:39 Dose: 1 tab Lisinopril (Prinivil) 5 mg PO DAILY [facility] Last Admin: 07/26/17 10:40 Dose: 5 mg Pantoprazole Sodium (Protonix -) 40 mg PO DAILY [facility] Last Admin: 07/25/17 14:15 Dose: 40 mg Polyethylene Glycol (Miralax (For Daily Use) -) 17 gm PO BID [facility] Last Admin: 07/26/17 10:56 Dose: 17 gm Senna (Senna -) 2 tab PO HS [facility] Last Admin: 07/25/17 22:10 Dose: 2 tab - Objective Vital Signs: Vital Signs Temperature 98.1 F 07/26/17 08:49 Pulse Rate 69 07/26/17 10:10 Respiratory Rate 20 07/26/17 10:10 Blood Pressure 143/69 07/26/17 10:10 O2 Sat by Pulse Oximetry (%) 95 07/25/17 21:00 Constitutional: Yes: No Distress, Calm Cardiovascular: Yes: Regular Rate and Rhythm Respiratory: Yes: Regular, CTA Bilaterally Gastrointestinal: Yes: Soft, Hypoactive Bowel Sounds Musculoskeletal: Yes: WNL Extremities: Yes: WNL Neurological: Yes: Alert Psychiatric: Yes: Alert Labs: CBC, BMP 07/26/17 05:50 07/26/17 05:50 INR, PTT INR 1.03 (0.82-1.09) 07/24/17 23:50 Assessment/Plan Problem List - Problems (1) Sepsis Code(s): A41.9 - SEPSIS, UNSPECIFIED ORGANISM (2) Leukocytosis Code(s): D72.829 - ELEVATED WHITE BLOOD CELL COUNT, UNSPECIFIED (3) Acute metabolic encephalopathy Code(s): G93.41 - METABOLIC ENCEPHALOPATHY (4) Fecal impaction in rectum Code(s): K56.41 - FECAL IMPACTION (5) URI (acute kidney injury) Code(s): N17.9 - ACUTE KIDNEY FAILURE, UNSPECIFIED (6) Alzheimer's dementia without behavioral disturbance Code(s): G30.9 - ALZHEIMER'S DISEASE, UNSPECIFIED; F02.80 - DEMENTIA IN OTH DISEASES CLASSD ELSWHR W/O BEHAVRL DISTURB (7) CVA, old, hemiparesis Code(s): I69.359 - HEMIPLGA FOLLOWING CEREBRAL INFARCTION AFFECTING UNSP SIDE (8) HLD (hyperlipidemia) Code(s): E78.5 - HYPERLIPIDEMIA, UNSPECIFIED (9) HTN (hypertension) Code(s): I10 - ESSENTIAL (PRIMARY) HYPERTENSION Qualifiers: Hypertension type: essential hypertension Qualified Code(s): I10 - Essential (primary) hypertension (10) GERD (gastroesophageal reflux disease) Code(s): K21.9 - GASTRO-ESOPHAGEAL REFLUX DISEASE WITHOUT ESOPHAGITIS Qualifiers: Esophagitis presence: without esophagitis Qualified Code(s): K21.9 - Gastro -esophageal reflux disease without esophagitis patient also has it seems patient has constipation wbc normalized plan continue current mgmt hydration rest as per the team stable
[2017-07-26] MEDS ORDERED: PANTOPRAZOLE 40 MG TABLET (FP) PO SCH ×2 (14:45→15:45)
[2017-07-26] MEDS: ASPIRIN 325 MG TABLET PO SCH (15:09)
[2017-07-26] MEDS: PANTOPRAZOLE SOD 40 MG SUSPENSION PACKET PO SCH (18:28)
[2017-07-26] MEDS: SENNOSIDES 8.6MG TABLET (FP) PO SCH (21:30)
[2017-07-26] MEDS: ATORVASTATIN CA 40 MG TABLET (FP) PO SCH (21:31)
[2017-07-27] MEDS ORDERED: DEXTROSE 5%-WATER - 50 ML IVPB ONE ×2 (01:49→09:10)
[2017-07-27] MEDS ORDERED: PIPERACILLIN/TAZOBACTAM 3.375 GM VIAL IVPB ONE ×2 (01:49→09:10)
[2017-07-27] MEDS: PIPERACILLIN/TAZOB 3.375 GM 3.375 GM in DEXTROSE 5%-WATER - 50 ML IVPB SCH ×2 (01:55→11:25)
[2017-07-27] MEDS: DOCUSATE NA 100 MG/10 ML UNIT-DOSE CUPS PO SCH ×3 (06:20→21:22)
[2017-07-27] MEDS: HEPARIN NA (PORCINE) 5,000 UNITS/ML 1ML VIAL SQ SCH ×3 (06:20→21:22)
[2017-07-27 07:05] LABS: BASO % 1.4 % (0-2.0); EOS % 2.8 % (0-4.5); HEMATOCRIT 36.1 % (32.4-45.2); HEMOGLOBIN 12.2 GM/dL (10.7-15.3); LYMPH % 36.6 % (8-40); MCHC 33.7 g/dl (32.0-36.0); MEAN PLT VOLUME 9.9 fl (7.5-11.1); MONO % 11.1 % (3.8-10.2); NEUT % 48.1 % (42.8-82.8); PLATELET COUNT 195 K/MM3 (134-434); RBC 4.06 M/mm3 (3.60-5.2); RDW 13.5 % (11.6-15.6); WHITE BLOOD COUNT 7.5 K/mm3 (4.0-10.0)
[2017-07-27 08:44] LABS: CHLORIDE 106 mmol/L (98-107); POTASSIUM 4.3 mmol/L (3.5-5.1); SODIUM 142 mmol/L (136-145)
[2017-07-27 09:02] LABS: ANION GAP 9 (8-16); BLOOD UREA NITROGEN 13 mg/dL (7-18); CALCIUM 8.9 mg/dL (8.5-10.1); CO2 27 mmol/L (21-32); CREATININE 1.2 mg/dL (0.55-1.02); GLUCOSE,RANDOM 129 mg/dL (74-106)
--- NOTE | 2017-07-27 10:57 | PN ---
Progress Note, Physician Chief Complaint: Pt lying in bed in no acute distress. appears confused, calm. unable to verbalize further due to dementia - Current Medication List Current Medications: Active Medications Acetaminophen (Tylenol -) 650 mg PO Q6H PRN PRN Reason: PAIN LEVEL 1-5 Aspirin (Asa -) 325 mg PO DAILY [facility] Last Admin: 07/26/17 15:09 Dose: 325 mg Atorvastatin Calcium (Lipitor -) 40 mg PO HS [facility] Last Admin: 07/26/17 21:31 Dose: 40 mg Calcium/Vitamin D (Oscal 250 Mg+D -) 2 tab PO BID [facility] Last Admin: 07/26/17 21:30 Dose: 2 tab Cholecalciferol (Vitamin D3 -) 1,000 unit PO DAILY [facility] Last Admin: 07/26/17 10:40 Dose: 1,000 unit Docusate Sodium (Colace Liquid -) 100 mg PO TID [facility] Last Admin: 07/27/17 06:20 Dose: 100 mg Heparin Sodium (Porcine) (Heparin -) 5,000 unit SQ TID [facility] Last Admin: 07/27/17 06:20 Dose: 5,000 unit Piperacillin Sod/Tazobactam (Sod 3.375 gm/ Dextrose) 50 mls @ 100 mls/hr IVPB Q8H-IV [facility]; Protocol Last Admin: 07/27/17 01:55 Dose: 100 mls/hr Sodium Chloride (Normal Saline -) 1,000 mls @ 50 mls/hr IV ASDIR [facility] Stop: 07/28/17 10:51 Lactobacillus Acidophilus (Bacid -) 1 tab PO DAILY [facility] Last Admin: 07/26/17 10:39 Dose: 1 tab Lisinopril (Prinivil) 5 mg PO DAILY [facility] Last Admin: 07/26/17 10:40 Dose: 5 mg Pantoprazole Sodium (Protonix Packets For Oral Suspension -) 40 mg PO DAILY [facility] Last Admin: 07/26/17 18:28 Dose: 40 mg Polyethylene Glycol (Miralax (For Daily Use) -) 17 gm PO BID [facility] Last Admin: 07/26/17 21:34 Dose: 17 gm Senna (Senna -) 2 tab PO HS [facility] Last Admin: 07/26/17 21:30 Dose: 2 tab - Objective Vital Signs: Vital Signs Temperature 98 F 07/27/17 10:00 Pulse Rate 60 07/27/17 10:00 Respiratory Rate 20 07/27/17 10:00 Blood Pressure 148/75 07/27/17 10:00 O2 Sat by Pulse Oximetry (%) 94 L 07/27/17 01:00 Constitutional: Yes: Well Nourished, No Distress, Calm Cardiovascular: Yes: WNL, Regular Rate and Rhythm. No: Gallop, Murmur Respiratory: Yes: WNL, Regular, CTA Bilaterally. No: SOB, Tachypnea, Wheezes Gastrointestinal: Yes: WNL, Normal Bowel Sounds, Soft, Abdomen, Obese. No: Distention, Tenderness Genitourinary: Yes: Incontinence Edema: No Neurological: Yes: Alert, Confusion Psychiatric: Yes: Alert Labs: CBC, BMP 07/27/17 06:05 07/27/17 06:05 INR, PTT INR 1.03 (0.82-1.09) 07/24/17 23:50 Problem List - Problems (1) Sepsis Code(s): A41.9 - SEPSIS, UNSPECIFIED ORGANISM (2) Leukocytosis Code(s): D72.829 - ELEVATED WHITE BLOOD CELL COUNT, UNSPECIFIED (3) Acute metabolic encephalopathy Code(s): G93.41 - METABOLIC ENCEPHALOPATHY (4) Fecal impaction in rectum Code(s): K56.41 - FECAL IMPACTION (5) URI (acute kidney injury) Code(s): N17.9 - ACUTE KIDNEY FAILURE, UNSPECIFIED (6) Alzheimer's dementia without behavioral disturbance Code(s): G30.9 - ALZHEIMER'S DISEASE, UNSPECIFIED; F02.80 - DEMENTIA IN OTH DISEASES CLASSD ELSWHR W/O BEHAVRL DISTURB (7) CVA, old, hemiparesis Code(s): I69.359 - HEMIPLGA FOLLOWING CEREBRAL INFARCTION AFFECTING UNSP SIDE (8) HLD (hyperlipidemia) Code(s): E78.5 - HYPERLIPIDEMIA, UNSPECIFIED (9) HTN (hypertension) Code(s): I10 - ESSENTIAL (PRIMARY) HYPERTENSION Qualifiers: Hypertension type: essential hypertension Qualified Code(s): I10 - Essential (primary) hypertension (10) GERD (gastroesophageal reflux disease) Code(s): K21.9 - GASTRO-ESOPHAGEAL REFLUX DISEASE WITHOUT ESOPHAGITIS Qualifiers: Esophagitis presence: without esophagitis Qualified Code(s): K21.9 - Gastro -esophageal reflux disease without esophagitis Assessment/Plan (1) Sepsis Assessment/Plan: improved received 3 days of zosyn monitor off antibiotics ID following Code(s): A41.9 - SEPSIS, UNSPECIFIED ORGANISM (2) Leukocytosis Assessment/Plan: resolved Code(s): D72.829 - ELEVATED WHITE BLOOD CELL COUNT, UNSPECIFIED (3) Acute metabolic encephalopathy Assessment/Plan: as baseline now Code(s): G93.41 - METABOLIC ENCEPHALOPATHY (4) Fecal impaction in rectum Assessment/Plan: resolved having BMs colace/miralax/senna Code(s): K56.41 - FECAL IMPACTION (5) URI (acute kidney injury) Assessment/Plan: mild elevation in cr since stopping IVF IVF restarted encourage po intake Code(s): N17.9 - ACUTE KIDNEY FAILURE, UNSPECIFIED (6) Alzheimer's dementia without behavioral disturbance Assessment/Plan: chronic, progressive dysphagia pureed diet aspiration precautions 1:1 feed speech eval - moderate impairment in swallowing MBS ordered r/o aspiration will monitor Code(s): G30.9 - ALZHEIMER'S DISEASE, UNSPECIFIED; F02.80 - DEMENTIA IN OTH DISEASES CLASSD ELSWHR W/O BEHAVRL DISTURB (7) CVA, old, hemiparesis Assessment/Plan: CVA, 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, chronic ASA 325mg daily/statin Code(s): I69.359 - HEMIPLGA FOLLOWING CEREBRAL INFARCTION AFFECTING UNSP SIDE (8) HLD (hyperlipidemia) Assessment/Plan: chronic continue statin Code(s): E78.5 - HYPERLIPIDEMIA, UNSPECIFIED (9) HTN (hypertension) Assessment/Plan: controlled continue lisinopril Code(s): I10 - ESSENTIAL (PRIMARY) HYPERTENSION Qualifiers: Hypertension type: essential hypertension Qualified Code(s): I10 - Essential (primary) hypertension (10) GERD (gastroesophageal reflux disease) Assessment/Plan: chronic ppi while inpt Code(s): K21.9 - GASTRO-ESOPHAGEAL REFLUX DISEASE WITHOUT ESOPHAGITIS Qualifiers: Esophagitis presence: without esophagitis Qualified Code(s): K21.9 - Gastro -esophageal reflux disease without esophagitis Dispo: SNF, tomorrow Spoke to HCP Yifan regarding goals of care for the pt, he reports pt would not like invasive measures, g-tube or any life prolonging measures. Palliative team consulted. Informed hcp, pt might be eating poorly and getting dehydrated. risk of aspiration as well. MBS pending, to be done tomorrow am.
[2017-07-27] MEDS ORDERED: SODIUM CHLORIDE 1,000 ML IV SCH (11:00)
[2017-07-27] MEDS: ASPIRIN 325 MG TABLET PO SCH (11:24)
[2017-07-27] MEDS: LACTOBACILLUS ACIDOPHILUS 1 TABLET PO SCH (11:24)
[2017-07-27] MEDS: LISINOPRIL 5 MG TABLET (FP) PO SCH (11:25)
[2017-07-27] MEDS: PANTOPRAZOLE SOD 40 MG SUSPENSION PACKET PO SCH (11:25)
[2017-07-27] MEDS: CHOLECALCIFEROL (VITAMIN D3) 1,000 UNIT TABLET (FP) PO SCH (11:25)
[2017-07-27] MEDS: POLYETHYLENE GLYCOL 3350 119 GM BTL PO SCH ×2 (12:00→21:23)
[2017-07-27] MEDS: CALCIUM 250MG/VIT-D 125 UNITS 1 COMBO TABLET PO SCH ×2 (12:00→21:22)
--- NOTE | 2017-07-27 12:12 | CONSULT ---
Admitting History and Physical - Primary Care Physician PCP: Megan Orta - Admission History of Present Illness: This is an 87 year old female with a past medical history significant for dementia, CVA, HTN, HLD who presented to the ED from [facility] with report of not eating this evening and increased facial droop. Selected Entries 07/26/17 07/26/17 07/26/17 02:00 06:00 08:49 Breakfast Lunch Temperature 97.9 F 97.9 F 98.1 F 07/26/17 07/26/17 07/26/17 10:36 14:10 15:06 Breakfast 75% Lunch 75% Temperature 98.2 F 07/26/17 07/27/17 07/27/17 18:00 02:00 06:00 Breakfast Lunch Temperature 97.0 F L 98.1 F 98.0 F 07/27/17 10:00 Breakfast Lunch Temperature 98 F Laboratory Tests 07/24/17 07/27/17 23:50 06:05 WBC 14.6 H D 7.5 Pureed diet and nectar thick liquids ordered at [facility] as well as at [facility].Seen last 12/2015 with similar performance. 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 Cardiovascular: Yes: HTN Gastrointestinal: Yes: GERD - Smoking History Smoking history: Never smoked Have you smoked in the past 12 months: No - Alcohol/Substance Use Hx Alcohol Use: No - Social History ADL: Support Services History of Recent Travel: No History - Admission Reason For Visit: SEPSIS - Diagnostics X-ray: Report Reviewed CT Scan: Report Reviewed - General Mental Status: Awake and Alert, Forgetful, Vague, Confused Attention: Distractible, Moderate Impairment Ability to Follow Directions: Poor Head/Neck Control: Needs Assist - Hearing Hearing: Functional Speech Evaluation - Communication Primary Language: BOLIVIAN Communication: Yes: Simple Responses Oral Expression Ability: Yes: Moderate Impairment - Speech Production Apraxia: Yes Able to Make Needs Known: Yes: Moderately Impaired Intelligibility: Yes: Moderately Impaired - Speech Characteristics Voice Loudness: Normal, Mildly Soft/Quiet Voice Pitch: Yes: Normal Voice Phonatory-based Quality: Yes: Normal Speech Pattern: Impaired Speech Clarity: < 25% Articulation: Yes: Imprecise (phonemic errors) - Language/Auditory Comprehension Observation: Able to respond to yes/no queries: No, Comprehends Conversational Speech: No (seems quite limited) - Language/Verbal Expression Able to Communicate Wants and Needs: Yes: Moderately Impaired - Swallow Evaluation/Bedside Assessment Current Nutritional Intake: Dysphagia Pureed, Arkoma Textured Liquids Oral Secretions: Yes: WFL Dentition: Yes: Edentulous Facial Symmetry at Rest: Symmetrical Lingual Movement: Symmetric Laryngeal Elevation: Impaired Laryngeal Movement: Reduced Excursion, Labored,delay initiation, Reduced Velocity Rate of Intake: Slow/Holding Bolus Size: Small Oral Prep Time: Increased A-P Transit: Impaired Pocketing: Present Bilaterally Timing of Swallow: Delayed Coughing/Throat Clear: No Recommendations - Speech Evaluation, Impression/Plan Impression: Oral holding with quite delayed swallow onset. Swallow reflex is reduced in ROM/VOM. - Disposition Discharge to: Care Home Facility - Dysphagia Impressions/Plan Swallowing Skills: Impaired Dysphagia Impressions: Moderate Impairment *Silent aspiration: cannot be R/O at bedside Dysphagia Treatment Plan: Small Bites, Chin Tuck/Down, Safe Rate, 1/2 tsp. at a time, Elevate HOB during feed, Other (Dys puree, nectar thick liquid, single sip on tsp, Magic cup b/n meals. TELL PT TO SWALLOW WITH EACH BITE AND PALPATE LARYNX FOR REFLEX. At times pt does not generate a swallow, placing pt at aspiration risk with glottis open and airway unprotected.) - Recommendations Diet Consistency: Dysphagia Pureed Medication Administration: Crushed with applesauce Liquids: Arkoma Thick Supplement: Magic Cup, Other (Ensure compact)
--- NOTE | 2017-07-27 14:23 | PN ---
Progress Note, Physician History of Present Illness: stable no new issues had a bm - Current Medication List Current Medications: Active Medications Acetaminophen (Tylenol -) 650 mg PO Q6H PRN PRN Reason: PAIN LEVEL 1-5 Aspirin (Asa -) 325 mg PO DAILY [facility] Last Admin: 07/27/17 11:24 Dose: 325 mg Atorvastatin Calcium (Lipitor -) 40 mg PO HS [facility] Last Admin: 07/26/17 21:31 Dose: 40 mg Calcium/Vitamin D (Oscal 250 Mg+D -) 2 tab PO BID [facility] Last Admin: 07/27/17 12:00 Dose: 2 tab Cholecalciferol (Vitamin D3 -) 1,000 unit PO DAILY [facility] Last Admin: 07/27/17 11:25 Dose: 1,000 unit Docusate Sodium (Colace Liquid -) 100 mg PO TID [facility] Last Admin: 07/27/17 14:07 Dose: 100 mg Heparin Sodium (Porcine) (Heparin -) 5,000 unit SQ TID [facility] Last Admin: 07/27/17 14:07 Dose: 5,000 unit Piperacillin Sod/Tazobactam (Sod 3.375 gm/ Dextrose) 50 mls @ 100 mls/hr IVPB Q8H-IV [facility]; Protocol Last Admin: 07/27/17 11:25 Dose: 100 mls/hr Sodium Chloride (Normal Saline -) 1,000 mls @ 50 mls/hr IV ASDIR [facility] Stop: 07/28/17 10:51 Last Admin: 07/27/17 11:26 Dose: 50 mls/hr Lactobacillus Acidophilus (Bacid -) 1 tab PO DAILY [facility] Last Admin: 07/27/17 11:24 Dose: 1 tab Lisinopril (Prinivil) 5 mg PO DAILY [facility] Last Admin: 07/27/17 11:25 Dose: 5 mg Pantoprazole Sodium (Protonix Packets For Oral Suspension -) 40 mg PO DAILY [facility] Last Admin: 07/27/17 11:25 Dose: 40 mg Polyethylene Glycol (Miralax (For Daily Use) -) 17 gm PO BID [facility] Last Admin: 07/27/17 12:00 Dose: 17 gm Senna (Senna -) 2 tab PO HS [facility] Last Admin: 07/26/17 21:30 Dose: 2 tab - Objective Vital Signs: Vital Signs Temperature 98 F 07/27/17 10:00 Pulse Rate 60 07/27/17 10:00 Respiratory Rate 20 07/27/17 10:00 Blood Pressure 148/75 07/27/17 10:00 O2 Sat by Pulse Oximetry (%) 94 L 07/27/17 01:00 Constitutional: Yes: No Distress, Calm Cardiovascular: Yes: Regular Rate and Rhythm Respiratory: Yes: Regular, CTA Bilaterally Gastrointestinal: Yes: Normal Bowel Sounds, Soft Musculoskeletal: Yes: WNL Extremities: Yes: WNL Neurological: Yes: Alert, Other Psychiatric: Yes: Other Labs: CBC, BMP 07/27/17 06:05 07/27/17 06:05 INR, PTT INR 1.03 (0.82-1.09) 07/24/17 23:50 Assessment/Plan Problem List - Problems (1) Sepsis Code(s): A41.9 - SEPSIS, UNSPECIFIED ORGANISM (2) Leukocytosis Code(s): D72.829 - ELEVATED WHITE BLOOD CELL COUNT, UNSPECIFIED (3) Acute metabolic encephalopathy Code(s): G93.41 - METABOLIC ENCEPHALOPATHY (4) Fecal impaction in rectum Code(s): K56.41 - FECAL IMPACTION (5) URI (acute kidney injury) Code(s): N17.9 - ACUTE KIDNEY FAILURE, UNSPECIFIED (6) Alzheimer's dementia without behavioral disturbance Code(s): G30.9 - ALZHEIMER'S DISEASE, UNSPECIFIED; F02.80 - DEMENTIA IN OTH DISEASES CLASSD ELSWHR W/O BEHAVRL DISTURB (7) CVA, old, hemiparesis Code(s): I69.359 - HEMIPLGA FOLLOWING CEREBRAL INFARCTION AFFECTING UNSP SIDE (8) HLD (hyperlipidemia) Code(s): E78.5 - HYPERLIPIDEMIA, UNSPECIFIED (9) HTN (hypertension) Code(s): I10 - ESSENTIAL (PRIMARY) HYPERTENSION Qualifiers: Hypertension type: essential hypertension Qualified Code(s): I10 - Essential (primary) hypertension (10) GERD (gastroesophageal reflux disease) Code(s): K21.9 - GASTRO-ESOPHAGEAL REFLUX DISEASE WITHOUT ESOPHAGITIS Qualifiers: Esophagitis presence: without esophagitis Qualified Code(s): K21.9 - Gastro -esophageal reflux disease without esophagitis patient also has it seems patient has constipation wbc normalized plan continue current mgmt hydration rest as per the team stable will change abx to oral
[2017-07-27] MEDS: ATORVASTATIN CA 40 MG TABLET (FP) PO SCH (21:22)
[2017-07-27] MEDS: SENNOSIDES 8.6MG TABLET (FP) PO SCH (21:22)
[2017-07-28] MEDS: HEPARIN NA (PORCINE) 5,000 UNITS/ML 1ML VIAL SQ SCH ×2 (06:08→14:38)
[2017-07-28] MEDS: DOCUSATE NA 100 MG/10 ML UNIT-DOSE CUPS PO SCH ×2 (06:08→14:38)
[2017-07-28 07:40] LABS: BASO % 1.5 % (0-2.0); EOS % 2.8 % (0-4.5); HEMATOCRIT 36.2 % (32.4-45.2); HEMOGLOBIN 12.1 GM/dL (10.7-15.3); MCH 29.8 pg (25.7-33.7); MCHC 33.3 g/dl (32.0-36.0); MEAN CELL VOLUME 89.3 fl (80-96); MEAN PLT VOLUME 9.8 fl (7.5-11.1); MONO % 11.1 % (3.8-10.2); NEUT % 50.6 % (42.8-82.8); PLATELET COUNT 200 K/MM3 (134-434); RBC 4.05 M/mm3 (3.60-5.2); RDW 13.4 % (11.6-15.6); WHITE BLOOD COUNT 7.2 K/mm3 (4.0-10.0)
[2017-07-28 08:33] LABS: ANION GAP 8 (8-16); BLOOD UREA NITROGEN 12 mg/dL (7-18); CALCIUM 8.7 mg/dL (8.5-10.1); CHLORIDE 108 mmol/L (98-107); CO2 27 mmol/L (21-32); GLUCOSE,RANDOM 126 mg/dL (74-106); POTASSIUM 4.2 mmol/L (3.5-5.1); SODIUM 143 mmol/L (136-145)
[2017-07-28 08:34] LABS: CREATININE 0.8 mg/dL (0.55-1.02)
[2017-07-28] MEDS: CHOLECALCIFEROL (VITAMIN D3) 1,000 UNIT TABLET (FP) PO SCH (09:11)
[2017-07-28] MEDS: LISINOPRIL 5 MG TABLET (FP) PO SCH (09:11)
[2017-07-28] MEDS: PANTOPRAZOLE SOD 40 MG SUSPENSION PACKET PO SCH (09:11)
[2017-07-28] MEDS: ASPIRIN 325 MG TABLET PO SCH (09:11)
[2017-07-28] MEDS: LACTOBACILLUS ACIDOPHILUS 1 TABLET PO SCH (09:11)
[2017-07-28] MEDS: POLYETHYLENE GLYCOL 3350 119 GM BTL PO SCH (09:11)
[2017-07-28] MEDS: CALCIUM 250MG/VIT-D 125 UNITS 1 COMBO TABLET PO SCH (09:12)
--- NOTE | 2017-07-28 13:05 | DS ---
Physical Examination Vital Signs: Vital Signs Temperature 97.0 F L 07/28/17 06:00 Pulse Rate 56 L 07/28/17 10:00 Respiratory Rate 18 07/28/17 10:00 Blood Pressure 166/68 07/28/17 10:00 O2 Sat by Pulse Oximetry (%) 94 L 07/27/17 21:00 Constitutional: Yes: Well Nourished, No Distress, Calm Cardiovascular: Yes: WNL, Regular Rate and Rhythm. No: Gallop, Murmur Respiratory: Yes: WNL, Regular, CTA Bilaterally. No: Accessory Muscle Use, SOB , Tachypnea, Wheezes Gastrointestinal: Yes: WNL, Normal Bowel Sounds, Soft. No: Distention, Tenderness Renal/: Yes: Incontinence Edema: No Neurological: Yes: Alert, Confusion Psychiatric: Yes: Alert Labs: CBC, BMP 07/28/17 06:16 07/28/17 06:16 Discharge Summary Reason For Visit: SEPSIS Current Active Problems SEPSIS - RESOLVED ACUTE METABOLIC ENCEPHALOPATHY- RESOLVED GERD (gastroesophageal reflux disease) (Chronic) Hospital Course: is a 87 year old female pmh significant for progressive dementia brought in from SNF for AMS/facial droop, admitted for sepsis/sirs, dehydration , fecal impaction. infectious work up unremarkable. ID consult appreciated, pt received 3 days of zosyn, leukocytosis/fever resolved.Suspect microaspiration in this elderly pt with dementia. Pt appears to have poor po intake, moderate swallowing impairment per speech eval, MBS reveals risk of aspiration. Fecal impaction resolved w/ enema, miralax/senna. Head ct neg URI improved with ivf. Pt is DNR, per HCP pt would not like any life prolonging measures such as gtube/feeds. Pt's status and goals of care discussed with HCP. Pt is medically stable for discharge to SNF. Condition: Fair - Instructions Diet, Activity, Other Instructions: dysphagia pureed diet, Small Bites, Chin Tuck/Down, Safe Rate, 1/2 tsp. at a time, Elevate HOB during feed, Other (Dys puree, nectar thick liquid, single sip on tsp, Magic cup b/n meals. TELL PT TO SWALLOW WITH EACH BITE AND PALPATE LARYNX FOR REFLEX. At times pt does not generate a swallow, placing pt at aspiration risk with glottis open and airway unprotected Pt had fecal impaction at the time of admission: She will benefit from miralax/ senna .A rectal exam to exclude evolving rectal fecal impaction at the custodial intermittently could be useful Goals of care: Pt is DNR. Pt/hcp would not like life-prolonging measures such as g-tube/feeds. Please have SW discuss with family regarding further goals about hospitalization Referrals: Sid Pride MD [Staff Physician] - 1 Week Disposition: [facility] - Home Medications Comprehensive Discharge Medication List: Ambulatory Orders Aa/Hydrolyzed Collagen, Whey [Lps Neutral Flavor Liquid] 30 ml PO BID 12/26/15 Acetaminophen 650 mg PO Q6H PRN 12/26/15 Alendronate Sodium [Binosto] 70 mg PO TU 12/26/15 Calcium Carbonate/Vitamin D3 [Oyster Shell+D 250 mg Tablet] 2 each PO BID Docusate Sodium [Colace -] 200 mg PO HS 12/26/15 Guaifenesin [Patience-Tussin] 200 mg PO Q4H PRN 12/26/15 Lisinopril 5 mg PO DAILY 12/26/15 Aspirin [Aspirin EC] 325 mg PO DAILY #30 tablet. 01/05/16 Atorvastatin Ca [Lipitor] 40 mg PO HS #30 tablet 01/05/16 Lactobacillus Acidophilus [Bacid -] 1 tab PO DAILY #30 tab 03/12/17 Cholecalciferol (Vitamin D3) [Vitamin D3] 1,000 unit PO DAILY 07/25/17 Insulin (LOG) Aspart [NovoLOG -] 0 units SQ TID 07/25/17 Polyethylene Glycol 3350 [Miralax 119 gm Btl -] 17 gm PO BID bottle 07/28/17 Sennosides [Senna -] 2 tab PO HS tablet 07/28/17
--- NOTE | 2017-07-28 14:20 | PN ---
Progress Note, Physician History of Present Illness: stable no new issues - Current Medication List Current Medications: Active Medications Acetaminophen (Tylenol -) 650 mg PO Q6H PRN PRN Reason: PAIN LEVEL 1-5 Aspirin (Asa -) 325 mg PO DAILY [facility] Last Admin: 07/28/17 09:11 Dose: 325 mg Atorvastatin Calcium (Lipitor -) 40 mg PO HS [facility] Last Admin: 07/27/17 21:22 Dose: 40 mg Calcium/Vitamin D (Oscal 250 Mg+D -) 2 tab PO BID [facility] Last Admin: 07/28/17 09:12 Dose: 2 tab Cholecalciferol (Vitamin D3 -) 1,000 unit PO DAILY [facility] Last Admin: 07/28/17 09:11 Dose: 1,000 unit Docusate Sodium (Colace Liquid -) 100 mg PO TID [facility] Last Admin: 07/28/17 06:08 Dose: 100 mg Heparin Sodium (Porcine) (Heparin -) 5,000 unit SQ TID [facility] Last Admin: 07/28/17 06:08 Dose: 5,000 unit Lactobacillus Acidophilus (Bacid -) 1 tab PO DAILY [facility] Last Admin: 07/28/17 09:11 Dose: 1 tab Lisinopril (Prinivil) 5 mg PO DAILY [facility] Last Admin: 07/28/17 09:11 Dose: 5 mg Pantoprazole Sodium (Protonix Packets For Oral Suspension -) 40 mg PO DAILY [facility] Last Admin: 07/28/17 09:11 Dose: 40 mg Polyethylene Glycol (Miralax (For Daily Use) -) 17 gm PO BID [facility] Last Admin: 07/28/17 09:11 Dose: 17 gm Senna (Senna -) 2 tab PO [facility] Last Admin: 07/27/17 21:22 Dose: 2 tab - Objective Vital Signs: Vital Signs Temperature 97.0 F L 07/28/17 06:00 Pulse Rate 56 L 07/28/17 10:00 Respiratory Rate 18 07/28/17 10:00 Blood Pressure 166/68 07/28/17 10:00 O2 Sat by Pulse Oximetry (%) 94 L 07/27/17 21:00 Constitutional: Yes: No Distress, Calm Eyes: Yes: Conjunctiva Clear Neck: Yes: Supple, Trachea Midline Cardiovascular: Yes: Regular Rate and Rhythm Respiratory: Yes: Regular, CTA Bilaterally Gastrointestinal: Yes: Normal Bowel Sounds, Soft Musculoskeletal: Yes: WNL Extremities: Yes: WNL Neurological: Yes: Alert, Other Psychiatric: Yes: Other Labs: CBC, BMP 07/28/17 06:16 07/28/17 06:16 INR, PTT INR 1.03 (0.82-1.09) 07/24/17 23:50 Assessment/Plan Problem List - Problems (1) Sepsis Code(s): A41.9 - SEPSIS, UNSPECIFIED ORGANISM (2) Leukocytosis Code(s): D72.829 - ELEVATED WHITE BLOOD CELL COUNT, UNSPECIFIED (3) Acute metabolic encephalopathy Code(s): G93.41 - METABOLIC ENCEPHALOPATHY (4) Fecal impaction in rectum Code(s): K56.41 - FECAL IMPACTION (5) URI (acute kidney injury) Code(s): N17.9 - ACUTE KIDNEY FAILURE, UNSPECIFIED (6) Alzheimer's dementia without behavioral disturbance Code(s): G30.9 - ALZHEIMER'S DISEASE, UNSPECIFIED; F02.80 - DEMENTIA IN OTH DISEASES CLASSD ELSWHR W/O BEHAVRL DISTURB (7) CVA, old, hemiparesis Code(s): I69.359 - HEMIPLGA FOLLOWING CEREBRAL INFARCTION AFFECTING UNSP SIDE (8) HLD (hyperlipidemia) Code(s): E78.5 - HYPERLIPIDEMIA, UNSPECIFIED (9) HTN (hypertension) Code(s): I10 - ESSENTIAL (PRIMARY) HYPERTENSION Qualifiers: Hypertension type: essential hypertension Qualified Code(s): I10 - Essential (primary) hypertension (10) GERD (gastroesophageal reflux disease) Code(s): K21.9 - GASTRO-ESOPHAGEAL REFLUX DISEASE WITHOUT ESOPHAGITIS Qualifiers: Esophagitis presence: without esophagitis Qualified Code(s): K21.9 - Gastro -esophageal reflux disease without esophagitis patient also has it seems patient has constipation wbc normalized plan continue current mgmt hydration rest as per the team stable will change abx to oral
[2017-07-28 14:55] VITALS: BP 137/74; PULSE 58; TEMP 98.3
== END 2017-07-28 19:40 | DRG 871 ==
LOC: JER 20:35 → UNDOADMOB 07-25 03:49 → INTOOBSV 07-25 03:49 → JERBED 07-25 03:49 → J5S 07-25 06:21 → OBSVTOIN 07-25 12:14
PROVIDERS: ADMIT Internal Medicine; ATTEND Internal Medicine
DX: A41.9 Sepsis, unspecified organism (principal); G93.41 Metabolic encephalopathy; I69.351 Hemiplegia and hemiparesis following cerebral infarction affecting right dominant side; E87.2 Acidosis; N17.9 Acute kidney failure, unspecified; G30.9 Alzheimer's disease, unspecified; F02.80 Dementia in other diseases classified elsewhere, unspecified severity, without behavioral disturbance, psychotic disturbance, mood disturbance, and anxiety; I10 Essential (primary) hypertension; E78.5 Hyperlipidemia, unspecified; K21.9 Gastro-esophageal reflux disease without esophagitis; Z87.440 Personal history of urinary (tract) infections; Z79.4 Long term (current) use of insulin; F41.9 Anxiety disorder, unspecified; F32.9 Major depressive disorder, single episode, unspecified; I44.0 Atrioventricular block, first degree; K56.41 Fecal impaction; I45.10 Unspecified right bundle-branch block
CPT/HCPCS: 36415; 70450-TC; 71045-TC-FY; 74176-TC; 74230-TC-FY; 80048; 80053; 81003; 81015; 82803; 83605; 83735; 84100; 84484; 85025; 85610; 85730; 87040; 87086; 92611-GN; 93005; 93010; 99282-25; G0378; J1644; J7030

== ENCOUNTER 2017-08-30 14:35 | Emergency (ER) | payer OTHER, BC ==
[2017-08-30 15:13] VITALS: BP 154/73; PULSE 71; TEMP 99.7; BMI 22.8
--- NOTE | 2017-08-30 16:10 | PDOC ---
History of Present Illness - General Chief Complaint: Weakness Stated Complaint: LEFT SIDE Weakness Time Seen by Provider: 08/30/17 14:53 History Source: [facility] Exam Limitations: No Limitations - History of Present Illness Initial Comments: 08/30/17 16:27 87-year-old female with past medical history of Alzheimer's, CVA w/ right side hemiparesis, HTN, HLD, GERD, and prior UTI presents to the emergency department from [facility] because nurse taking care of patient thought the patient was leaning toward the left side more than usual. Patient is not able to communicate or move her right side at baseline. Past History - Past Medical History Allergies/Adverse Reactions: Allergies Allergy/AdvReac Type Severity Reaction Status Date / Time No Known Allergies Allergy Verified 08/30/17 14:47 Home Medications: Ambulatory Orders Aa/Hydrolyzed Collagen, Whey [Lps Neutral Flavor Liquid] 30 ml PO BID 12/26/15 Acetaminophen 650 mg PO Q6H PRN 12/26/15 Alendronate Sodium [Binosto] 70 mg PO TU 12/26/15 Calcium Carbonate/Vitamin D3 [Oyster Shell+D 250 mg Tablet] 2 each PO BID Docusate Sodium [Colace -] 200 mg PO HS 12/26/15 Guaifenesin [Patience-Tussin] 200 mg PO Q4H PRN 12/26/15 Lisinopril 5 mg PO DAILY 12/26/15 Aspirin [Aspirin EC] 325 mg PO DAILY #30 tablet. 01/05/16 Atorvastatin Ca [Lipitor] 40 mg PO HS #30 tablet 01/05/16 Cholecalciferol (Vitamin D3) [Vitamin D3] 1,000 unit PO DAILY 07/25/17 Polyethylene Glycol 3350 [Miralax 119 gm Btl -] 17 gm PO BID bottle 07/28/17 Sennosides [Senna -] 2 tab PO HS tablet 07/28/17 Anemia: Yes Cancer: No CVA: Yes (rt sided weakness) COPD: No Dementia: Yes (ALZHEIMERS.) GI Disorders: Yes (GERD.) HTN: Yes Psychiatric Problems: Yes (ANXIETY. DEPRESSION.) - Suicide/Smoking/Psychosocial Hx Smoking History: Unknown if ever smoked Have you smoked in the past 12 months: No Information on smoking cessation initiated: No Hx Alcohol Use: No Drug/Substance Use Hx: No Substance Use Type: None Review of Systems - Review of Systems Able to Perform ROS?: No (Severe dementia) *Physical Exam - Vital Signs Last Vital Signs Temp Pulse Resp BP Pulse Ox 99.7 F H 71 18 154/73 96 08/30/17 14:51 08/30/17 14:51 08/30/17 14:51 08/30/17 14:51 08/30/17 14:51 - Physical Exam General Appearance: Yes: Appropriately Dressed, Thin. No: Apparent Distress HEENT: positive: Other (1mm pupils, reactive to light, droolong from right mouth corner.) Respiratory/Chest: positive: Lungs Clear, Normal Breath Sounds. negative: Chest Tender, Respiratory Distress Cardiovascular: positive: Regular Rhythm, Regular Rate, S1, S2 Gastrointestinal/Abdominal: positive: Normal Bowel Sounds, Flat, Soft. negative : Tender Musculoskeletal: positive: Normal Inspection. negative: CVA Tenderness Extremity: positive: Other (unable to move right side). negative: Normal Range of Motion Integumentary: positive: Normal Color, Dry, Warm Neurologic: positive: Other (no responding to command, seemingly not understanding, unable to communicate) ED Treatment Course - LABORATORY CBC & Chemistry Diagram: 08/30/17 16:30 08/30/17 16:30 - RADIOLOGY Radiology Studies Ordered: Category Date Time Status HEAD CT (STROKE) [CT] Stat CT Scan 08/30/17 16:05 Ordered Medical Decision Making - Medical Decision Making 08/30/17 16:58 - CT head - Basic labs - UA - CXR 08/30/17 20:24 Labs, urine, CT: Negative. PAtient asymptomatic from baseline. CXR: no infiltrates or consolidations. some right lower lobe atelectasis. Repeat vitals and Can go back to [facility] *DC/Admit/Observation/Transfer Diagnosis at time of Disposition: Alzheimer's dementia without behavioral disturbance - Discharge Dispostion Disposition: HOME Condition at time of disposition: Fair Decision to Admit order: No - Referrals Referrals: Sid Pride MD [Primary Care Provider] - - Patient Instructions Additional Instructions: Come back to the ER for any new worsening or concerning symptoms. - Post Discharge Activity
[2017-08-30 16:47] LABS: BASO % 1.6 % (0-2.0); EOS % 3.4 % (0-4.5); HEMATOCRIT 40.7 % (32.4-45.2); HEMOGLOBIN 13.5 GM/dL (10.7-15.3); LYMPH % 35.5 % (8-40); MCH 29.7 pg (25.7-33.7); MCHC 33.3 g/dl (32.0-36.0); MEAN CELL VOLUME 89.4 fl (80-96); MEAN PLT VOLUME 10.5 fl (7.5-11.1); MONO % 11.3 % (3.8-10.2); NEUT % 48.2 % (42.8-82.8); PLATELET COUNT 220 K/MM3 (134-434); RBC 4.55 M/mm3 (3.60-5.2); RDW 13.2 % (11.6-15.6); WHITE BLOOD COUNT 8.6 K/mm3 (4.0-10.0)
[2017-08-30 17:21] LABS: URINE APPEARANCE CLEAR; URINE BILIRUBIN NEGATIVE (<2.0 mg/dL); URINE COLOR YELLOW; URINE GLUCOSE (UA) NEGATIVE (NEGATIVE); URINE KETONE NEGATIVE (NEGATIVE); URINE LEUK ESTERASE NEGATIVE (NEGATIVE); URINE NITRITE NEGATIVE (NEGATIVE); URINE PROTEIN NEGATIVE (NEGATIVE); URINE UROBILINOGEN NEGATIVE mg/dL (0.2-1.0)
[2017-08-30 17:31] LABS: ALBUMIN 3.1 g/dl (3.4-5.0); ANION GAP 8 (8-16); BLOOD UREA NITROGEN 21 mg/dL (7-18); CALCIUM 9.2 mg/dL (8.5-10.1); CHLORIDE 109 mmol/L (98-107); CO2 27 mmol/L (21-32); CREATININE 0.9 mg/dL (0.55-1.02); GLUCOSE,RANDOM 131 mg/dL (74-106); POTASSIUM 4.6 mmol/L (3.5-5.1); SGOT/AST 16 U/L (15-37); SGPT/ALT 21 U/L (12-78); SODIUM 144 mmol/L (136-145)
[2017-08-30 17:33] LABS: ALK PHOS 83 U/L (45-117); BILIRUBIN,TOTAL 0.2 mg/dL (0.2-1.0); TOT PROT 6.7 g/dl (6.4-8.2)
--- NOTE | 2017-08-30 19:21 | PDOC ---
Attending Attestation - Resident Resident Name: Michael Obrien - ED Attending Attestation I have performed the following: I have examined & evaluated the patient, The case was reviewed & discussed with the resident, I agree w/resident's findings & plan, Exceptions are as noted - HPI HPI: 08/30/17 19:11 "The patient is an 87 year old female with significant past medical history of anemia, CVA (right sided weakness), Alzheimers, HTN, HLD, GERD, anxiety, depression, who presents to the emergency department to be evaluated for possible left-sided weakness. As per patients aid, she appeared to be leaning to the left more than usual while sitting upright in bed this morning at 9:30 am. At baseline, pt is non-verbal. She has baseline R side contractures 2/2 prior CVA. Aide does not report any new facial droop. No other symptoms. Denies fever, chills, nausea, vomiting, diarrhea, constipation. Allergies: NKA Social history: none reported Surgical history: none reported PCP: Dr. Sid Pride " - Physicial Exam PE: 08/30/17 19:14 "GENERAL: Awake, alert, nonverbal, NAD HEAD: No signs of trauma EYES: PERRLA, EOMI, sclera anicteric, conjunctiva clear ENT: Auricles normal inspection, hearing grossly normal, nares patent, oropharynx clear without exudates. Moist mucosa NECK: Nontender, no stepoffs, Normal ROM, supple, no lymphadenopathy, JVD, or masses LUNGS: Breath sounds equal, clear to auscultation bilaterally. No wheezes, and no crackles HEART: Regular rate and rhythm, normal S1 and S2, no murmurs, rubs or gallops ABDOMEN: Soft, nontender, normoactive bowel sounds. No guarding, no rebound. No masses EXTREMITIES: Normal range of motion, no edema. No clubbing or cyanosis. No cords, erythema, or tenderness NEUROLOGICAL: R side contractures, moves LUE and LLE spontaneously SKIN: Warm, Dry, normal turgor, no rashes or lesions noted. " - Medical Decision Making 08/30/17 19:15 87 F sent for evaluation of possible new weakness, though pt on my exam with no new deficits. Pt does not appear to be leaning to any side. Only notable finding on exam is temp of 99.7 rectally. No fevers reported at home. - Labs - UA, CXR - CT head - Reassess Pt signed out to oncoming attending Dr. Stout at 7PM, pending labs, imaging , repeat vital signs, and final disposition. Case discussed in detail with oncoming Emergency Physician including history, physical exam and ancillary studies. Oncoming Emergency Physician has assumed care for the patient and will complete the evaluation and treatment.
--- NOTE | 2017-08-31 14:29 | EKG ---
Test Reason : Blood Pressure : / mmHG Vent. Rate : 064 BPM Atrial Rate : 064 BPM P-R Int : 228 ms QRS Dur : 110 ms QT Int : 430 ms P-R-T Axes : 029 024 039 degrees QTc Int : 443 ms SINUS RHYTHM WITH 1ST DEGREE A-V BLOCK INCOMPLETE RIGHT BUNDLE BRANCH BLOCK BORDERLINE ECG WHEN COMPARED WITH ECG OF 24-JUL-2017 23:00, NONSPECIFIC T WAVE ABNORMALITY HAS REPLACED INVERTED T WAVES IN INFERIOR LEADS NONSPECIFIC T WAVE ABNORMALITY HAS REPLACED INVERTED T WAVES IN ANTERIOR LEADS Confirmed by MARLON MURRIETA MD ([id number]) on 08/31/2017 2:29:05 PM Referred By: Confirmed By:MARLON MURRIETA MD
== END 2017-08-30 23:57 | disposition home or self-care (01) ==
LOC: JER 14:35
DX: G30.9 Alzheimer's disease, unspecified (principal); F02.80 Dementia in other diseases classified elsewhere, unspecified severity, without behavioral disturbance, psychotic disturbance, mood disturbance, and anxiety; I10 Essential (primary) hypertension; E78.5 Hyperlipidemia, unspecified; K21.9 Gastro-esophageal reflux disease without esophagitis; Z87.440 Personal history of urinary (tract) infections; F41.8 Other specified anxiety disorders
CPT/HCPCS: 36415; 70450-TC; 71045-TC-FY; 80053; 81003; 85025; 87086; 93005; 93010; 99284-25

== ENCOUNTER 2018-01-24 13:38 | Observation (INO) | payer OTHER, BC ==
--- NOTE | 2018-01-24 14:02 | PDOC ---
History of Present Illness - General Chief Complaint: Syncope/Near Syncope Stated Complaint: Syncope/Near Syncope Time Seen by Provider: 01/24/18 14:02 History Source: Longterm Records Exam Limitations: Clinical Condition, Dementia - History of Present Illness Initial Comments: Pt is an 87 yo F, with PMH of DM, anemia, CVA (residual R-sided weakness), Alzheimer's, HTN, HLD, GERD, anxiety, and depression, who is presenting from [facility] (PCP Dr. Pride) for a short period of possible syncope/ unresponsiveness. Nursing records state for 2 episodes of about 30 seconds this morning, the pt was not responsive to vocal stimuli and had her eyes closed. There was no generalized shaking or incontinence at this time. Pt had a CVA last year (with residual R sided contracture and weakness), so staff was worried that she may be having another stroke. Pt is generally non-verbal at baseline and sits in her chair or bed for most of the day. Staff denies any recent fevers/chills, cough, complaints of chest or abdominal pain, or joint/ leg swelling. PATIENT IS DNR/DNI Social: [facility] denies any cigarette, alcohol, or drug use. [facility] denies any recent travel or sick contacts. Surgical: L hip replacement Family: no relevant history 01/24/18 16:18 Past History - Travel Traveled outside of the country in the last 30 days: No Close contact w/someone who was outside of country & ill: No - Past Medical History Allergies/Adverse Reactions: Allergies Allergy/AdvReac Type Severity Reaction Status Date / Time No Known Allergies Allergy Verified 01/24/18 13:50 Home Medications: Ambulatory Orders Aa/Hydrolyzed Collagen, Whey [Lps Neutral Flavor Liquid] 30 ml PO BID 12/26/15 Acetaminophen 650 mg PO Q6H PRN 12/26/15 Alendronate Sodium [Binosto] 70 mg PO TU 12/26/15 Calcium Carbonate/Vitamin D3 [Oyster Shell+D 250 mg Tablet] 2 each PO BID Docusate Sodium [Colace -] 200 mg PO HS 12/26/15 Guaifenesin [Patience-Tussin] 200 mg PO Q4H PRN 12/26/15 Lisinopril 5 mg PO DAILY 12/26/15 Aspirin [Aspirin EC] 325 mg PO DAILY #30 tablet.dr 01/05/16 Atorvastatin Ca [Lipitor] 40 mg PO HS #30 tablet 01/05/16 Cholecalciferol (Vitamin D3) [Vitamin D3] 1,000 unit PO DAILY 07/25/17 Polyethylene Glycol 3350 [Miralax 119 gm Btl -] 17 gm PO BID bottle 07/28/17 Sennosides [Senna -] 2 tab PO HS tablet 07/28/17 Insulin Lispro [Humalog] 100 unit SQ BID 01/24/18 L. Acidophilus/Pectin, [place] [Acidophilus Caplet] 1 each PO DAILY 01/24/18 Ranitidine [Zantac -] 150 mg PO HS 01/24/18 Vit C/E/Zn/Coppr/Lutein/Zeaxan [Preservision Areds 2 Softgel] 1 each PO BID Anemia: Yes Cancer: No CVA: Yes (rt sided weakness) COPD: No Dementia: Yes (ALZHEIMERS.) GI Disorders: Yes (GERD.) HTN: Yes Psychiatric Problems: Yes (ANXIETY. DEPRESSION.) - Suicide/Smoking/Psychosocial Hx Smoking History: Unknown if ever smoked Have you smoked in the past 12 months: No Information on smoking cessation initiated: No Hx Alcohol Use: No Drug/Substance Use Hx: No Substance Use Type: None Review of Systems - Review of Systems Able to Perform ROS?: No (dementia, AMS) Is the patient limited Bahraini proficient: No *Physical Exam - Vital Signs Last Vital Signs Temp Pulse Resp BP Pulse Ox 99 F 71 18 177/84 H 100 01/24/18 13:45 01/24/18 13:45 01/24/18 13:45 01/24/18 13:45 01/24/18 13:45 - Physical Exam General Appearance: Yes: Nourished, Appropriately Dressed. No: Apparent Distress HEENT: positive: EOMI, RUIZ, Normal ENT Inspection, Normal Voice, TMs Normal, Pharynx Normal, Hearing Grossly Normal. negative: Scleral Icterus (R), Scleral Icterus (L), Pharyngeal Erythema, Tonsillar Exudate, Tonsillar Erythema, Nasal Congestion, Hearing Decreased, TM Bulging, TM Dull, TM Erythema Neck: positive: Trachea midline, Normal Thyroid, Supple. negative: Tender, Rigid, Decreased range of motion, Lymphadenopathy (R), Lymphadenopathy (L), Rigidity Respiratory/Chest: positive: Rhonchi (mild coarse breath sounds over R anterior upper lobe, moving good air, no respiratory distress). negative: Chest Tender, Lungs Clear, Normal Breath Sounds, Respiratory Distress, Accessory Muscle Use, Labored Respiration, Crackles, Wheezing Cardiovascular: positive: Regular Rhythm, Regular Rate, S1, S2. negative: Edema , JVD, Murmur Vascular Pulses: Carotid (R): 4+, Carotid (L): 4+ Gastrointestinal/Abdominal: positive: Normal Bowel Sounds, Flat, Soft. negative : Tender, Organomegaly, Pulsatile Mass, Distended, Guarding, Rebound Rectal Exam: positive: deferred. negative: other (no sacral ulcers, no obvious blood in diaper stool) Lymphatic: negative: Adenopathy, Tenderness Musculoskeletal: positive: Normal Inspection. negative: CVA Tenderness Extremity: positive: Normal Capillary Refill, Normal Inspection, Pelvis Stable. negative: Normal Range of Motion (contracture of RUE and RLE, R hand held in flexion. L hip inverted, but pt can flex at the hip and knee, with old scar over L hip incision site (chronic changes from prior CVA and L hip replacement). ), Tender, Pedal Edema, Swelling, Calf Tenderness Integumentary: positive: Normal Color, Dry, Warm Neurologic: positive: Alert (eyes open, turns head to verbal stimuli, but does not answer questions.), Normal Response, Motor Strength 5/5, Respond to painful stimul, Disoriented. negative: special delivery carrier II-XII NML intact (unable to assess due to pt not responding to verbal commands), Fully Oriented (pt does not respond appropriately to most questions, not oriented at baseline (dementia)), Normal Mood/Affect, EOM Palsy, Facial Droop Moderate Sedation - Procedure Monitoring Vital Signs: Procedure Monitoring Vital Signs Temperature 99 F 01/24/18 13:45 Pulse Rate 71 01/24/18 13:45 Respiratory Rate 18 01/24/18 13:45 Blood Pressure 177/84 H 01/24/18 13:45 O2 Sat by Pulse Oximetry (%) 100 01/24/18 13:45 ED Treatment Course - LABORATORY CBC & Chemistry Diagram: 01/24/18 14:32 01/24/18 14:32 Medical Decision Making - Medical Decision Making Pt was seen at bedside, also will be seen by attending Dr. Aguirre. [facility] a short period of possible syncope/ unresponsiveness. Nursing records state for 2 episodes of about 30 seconds this morning, the pt was not responsive to vocal stimuli and had her eyes closed. There was no generalized shaking or incontinence at this time. Pt had a CVA last year (with residual R sided contracture and weakness), so staff was worried that she may be having another stroke. Pt is generally non-verbal at baseline and sits in her chair or bed for most of the day. Staff denies any recent fevers/chills, cough, complaints of chest or abdominal pain, or joint/ leg swelling. PE showed pt awake and alert, but non-verbal and not oriented. Coarse breath sounds over R lung bailey. Considering TIA vs CVA vs seizure vs infectious process (UTI, pneumonia) vs electrolyte abnormalities. Ordered work-up including CBC, CMP Provided [interventions/meds] for improvement of [pain/symptom control]. Will continue to reassess pt and monitor for symptomatic improvement. 01/24/18 14:32 Non-contrast Head CT: IMPRESSION: Moderate to marked ventriculomegaly, unchanged since the prior examination, suggestive of communicating hydrocephalus. Moderate periventricular chronic microvascular seen disease changes. Focal chronic infarct in the left posterior basal ganglia extending to the periventricular white matter Likely tiny right paramedian pontine chronic lacunar infarct. 01/24/18 15:35 CBC and coags WNL. UA negative for infection. Pending chemistry, lactic acid, and troponin. ECG: NSR, HR 70, VA 206, QRS 78, QTc 436. Pt had prolonged VA/1st degree block in the past. No significant ECG changes noted from prior visits. 01/24/18 15:37 Spoke with [facility] staff. Nurse stated pt had period of not opening her eyes to vocal commands for ~30 seconds. There was no generalized shaking or incontinence. Pt has been given all of her medications as prescribed. Pending CMP and then will call Dr. Pride (pts PCP) to determine if admission is necessary or if he has any further requests for diagnostic testing. 01/24/18 15:50 CMP generally WNL, BUN 26. Will provide pt 250 mL IV NS. Lactic 1.4, Trop <.02 Chest x-ray does not appear to have any focal deficits, appears similar to prior chest x-ray. Calling Dr. Pride to discuss pt. 01/24/18 16:10 Hospitalist accepted pt for admission. Hospitalist team will come to see the pt. Pt lying comfortably, awaiting bed upstairs. 01/24/18 16:40 Pt continues to await bed upstairs, lying comfortably. 01/24/18 17:58 *DC/Admit/Observation/Transfer Diagnosis at time of Disposition: Altered mental state Qualifiers: Altered mental status type: unspecified Qualified Code(s): R41.82 - Altered mental status, unspecified Alzheimer's dementia without behavioral disturbance Qualifiers: Alzheimer's disease onset: unspecified onset Qualified Code(s): G30.9 - Alzheimer's disease, unspecified - Discharge Dispostion Condition at time of disposition: Stable Decision to Admit order: Yes - Referrals - Patient Instructions - Post Discharge Activity
--- NOTE | 2018-01-24 14:16 | PDOC ---
Attending Attestation - HPI HPI: The patient is a 87 year old female, with a significant PMH of anemia, CVA ( with residual right side weakness), Alzheimers, HTN, HLD, GERD, anxiety, and depression, who presents to the emergency department today from [facility], for short period episodes of unresponsiveness. As per senior care, patients nurse noticed she had 2 episode of unresponsiveness earlier this morning, in which she closed her eyes and didnt acknowledge aid for ~30 seconds each time. After both episodes, patient was asymptomatic. They note that she has been taking her medications as per usual. Patient is nonverbal at baseline. [facility] Staff denies chest pain, shortness of breath, headache and dizziness. Denies fever, chills, nausea, vomit, diarrhea and constipation. Denies dysuria, frequency, urgency and hematuria. Allergies: NKA Past surgical history: Left hip replacement Social history: No reported PCP: Dr. Pride 01/24/18 16:11 - Physicial Exam PE: GENERAL: The patient is in no acute distress. Alert, but not oriented. Responsive but cannot follow verbal commands. HEAD: Normal with no signs of trauma. EYES: PERRLA, EOMI, sclera anicteric, conjunctiva clear. ENT: Ears normal, nares patent, oropharynx clear without exudates. Moist mucous membranes. NECK: Normal range of motion, supple without lymphadenopathy, JVD, or masses. LUNGS: +Coarse breath sounds over right anterior upper lobe. No wheezes, and no crackles. HEART:Regular rate and rhythm, normal S1 and S2 without murmur, rub or gallop. ABDOMEN: Soft, nontender, normoactive bowel sounds. No guarding, no rebound. No masses palpable. EXTREMITIES: +Flexion L hip inverted, L scar is chronic in nature. +R upper and lower extremity weakness with contractions at right hand and leg. Normal range of motion, no edema. No clubbing or cyanosis. No erythema, or tenderness. NEUROLOGICAL: Couldnt evaluate cranial nerves secondary to patient not responding to commands. speech. No focal neurological deficits. MUSCULOSKELETAL: Back non-tender to palpation, no CVA tenderness SKIN: Warm, Dry, normal turgor, no rashes or lesions noted. 01/24/18 16:51 <Azalia Webber - Last Filed: 12/19/18 17:03> - Resident Resident Name: Sachi Joe - ED Attending Attestation I have performed the following: I have examined & evaluated the patient, The case was reviewed & discussed with the resident, I agree w/resident's findings & plan, Exceptions are as noted - Medical Decision Making 01/24/18 14:15 EKG - NSR rate of 70 bpm, axis nml, no st elevation or depression, t waves upright, no pathological q waves, pr prolongation 01/24/18 15:26 Labs - Laboratory Tests 01/24/18 01/24/18 01/24/18 14:32 14:32 14:32 WBC 7.7 Hgb 14.2 Hct 40.5 Plt Count 187 INR 1.03 Urine Blood Negative Urine Nitrite Negative Ur Leukocyte Esterase Negative 01/25/18 10:[address] on observation to the Hospitalist <Linda Aguirre - Last Filed: 01/25/18 10:34> Heart Score/ECG Review - ECG Intrepretation Comment:: Normal sinus rhythm. Nonspecific T wave abnormality. Abnormal ECG. 01/24/18 17:03 <Azalia Webber - Last Filed: 01/24/18 17:03>
[2018-01-24 14:40] LABS: BASO % 0.9 % (0-2.0); EOS % 1.7 % (0-4.5); HEMATOCRIT 40.5 % (32.4-45.2); HEMOGLOBIN 14.2 GM/dL (10.7-15.3); LYMPH % 27.3 % (8-40); MEAN CELL VOLUME 88.6 fl (80-96); MEAN PLT VOLUME 10.5 fl (7.5-11.1); NEUT % 56.1 % (42.8-82.8); PLATELET COUNT 187 K/MM3 (134-434); RBC 4.58 M/mm3 (3.60-5.2); RDW 13.6 % (11.6-15.6); WHITE BLOOD COUNT 7.7 K/mm3 (4.0-10.0)
[2018-01-24 15:10] LABS: URINE APPEARANCE CLEAR; URINE BILIRUBIN NEGATIVE (<2.0 mg/dL); URINE COLOR YELLOW; URINE GLUCOSE (UA) NEGATIVE (NEGATIVE); URINE KETONE NEGATIVE (NEGATIVE); URINE LEUK ESTERASE NEGATIVE (NEGATIVE); URINE NITRITE NEGATIVE (NEGATIVE); URINE PROTEIN NEGATIVE (NEGATIVE)
[2018-01-24 15:18] LABS: INR 1.03 (0.83-1.09); PROTHROMBIN TIME (PATIENT) 12.2 SEC (9.7-13.0)
[2018-01-24 16:01] LABS: ALBUMIN 3.3 g/dl (3.4-5.0); ALK PHOS 95 U/L (45-117); ANION GAP 4 MMOL/L (8-16); BILIRUBIN,TOTAL 0.4 mg/dL (0.2-1); BLOOD UREA NITROGEN 26 mg/dL (7-18); CALCIUM 8.8 mg/dL (8.5-10.1); CHLORIDE 110 mmol/L (98-107); CO2 26 mmol/L (21-32); CREATININE 0.8 mg/dL (0.55-1.3); GLUCOSE,RANDOM 143 mg/dL (74-106); MAGNESIUM 2.4 mg/dL (1.8-2.4); POTASSIUM 4.3 mmol/L (3.5-5.1); SGOT/AST 27 U/L (15-37); SGPT/ALT 35 U/L (13-61); SODIUM 140 mmol/L (136-145); TOT PROT 6.6 g/dl (6.4-8.2)
[2018-01-24] MEDS ORDERED: SODIUM CHLORIDE 250 ML IV STA (16:08)
[2018-01-24] MEDS ORDERED: ACETAMINOPHEN 325 MG TABLET (FP) PO PRN (16:53)
[2018-01-24] MEDS ORDERED: PATIENT'S OWN MEDICATION (NON-FORMULARY) (Aa/Hydrolyzed Collagen, Whey [Lps Neutral Flavor PO SCH (22:00)
--- NOTE | 2018-01-24 23:03 | HP ---
CHIEF COMPLAINT: Transient episodes of unresponsiveness PCP: Dr. Pride HISTORY OF PRESENT ILLNESS: 87 year old female with a with PMH significant for Alzheimer's dementia, CVA with R hemiplegia 2016, HTN, HLD, GERD, UTI, anxiety/depression presented to the ED from [place] via EMS for transient periods of unresponsiveness, concern was that patient may be having another stroke. Patient is a resident at [facility], she is non-verbal and non-ambulatory at baseline. This morning, [facility] staff reported 2 episodes of patient not responding to verbal stimuli with her eyes for about 30 seconds each time. No reports of convulsions. Patient had a CVA in 2016 with residual R sided contracture and weakness. No other recent illness reported. Upon admission to the ED, patient had an elevated temp of 99 and slightly elevated BP of 177/84. Labs significant for a BUN of 26. No significant changes to EKG and CXR. Lactic acid WNL, trop and UA negative. She was given 250 mL IV fluids. Recent Travel: No PAST MEDICAL HISTORY: Anemia CVA (with residual right side weakness) HTN HLD Alzheimers GERD Anxiety Depression PAST SURGICAL HISTORY: Left hip replacement Social History: Smoking: unk Alcohol: unk Drugs: unk Family History: unable to obtain Allergies No Known Allergies Allergy (Verified 01/24/18 13:50) HOME MEDICATIONS: Home Medications Medication Instructions Recorded Aa/Hydrolyzed Collagen, Whey [Lps 30 ml PO BID 12/26/15 Neutral Flavor Liquid] Acetaminophen 650 mg PO Q6H PRN 12/26/15 Alendronate Sodium [Binosto] 70 mg PO TU 12/26/15 Calcium Carbonate/Vitamin D3 2 each PO BID 12/26/15 [Oyster Shell+D 250 mg Tablet] Docusate Sodium [Colace -] 200 mg PO HS 12/26/15 Guaifenesin [Patience-Tussin] 200 mg PO Q4H PRN 12/26/15 Lisinopril 5 mg PO DAILY 12/26/15 Aspirin [Aspirin EC] 325 mg PO DAILY #30 tablet. 01/05/16 Atorvastatin Ca [Lipitor] 40 mg PO HS #30 tablet 01/05/16 Cholecalciferol (Vitamin D3) 1,000 unit PO DAILY 07/25/17 [Vitamin D3] Polyethylene Glycol 3350 [Miralax 17 gm PO BID bottle 07/28/17 119 gm Btl -] Sennosides [Senna -] 2 tab PO HS tablet 07/28/17 Insulin Lispro [Humalog] 100 unit SQ BID 01/24/18 L. Acidophilus/Pectin, [place] 1 each PO DAILY 01/24/18 [Acidophilus Caplet] Ranitidine [Zantac -] 150 mg PO HS 01/24/18 Vit C/E/Zn/Coppr/Lutein/Zeaxan 1 each PO BID 01/24/18 [Preservision Areds 2 Softgel] REVIEW OF SYSTEMS [facility] noted transient periods of unresponsiveness. PHYSICAL EXAMINATION Vital Signs - 24 hr 01/24/18 01/24/18 01/24/18 13:45 14:15 18:49 Temperature 99 F Pulse Rate 71 Pulse Rate [ 75 Left Radial] Respiratory 18 12 Rate Blood Pressure 177/84 H Blood Pressure 157/78 [Left Arm] O2 Sat by Pulse 100 97 97 Oximetry (%) GENERAL: Elderly, frail, fatigued, pt unable to verbalize in coherent sentences , in no acute distress. HEAD: Normal with no signs of trauma. EYES: Pupils equal, round and reactive to light, extraocular movements intact, sclera anicteric, conjunctiva clear. No lid lag. EARS, NOSE, THROAT: Edentulous, nares patent, oropharynx clear without exudates. Moist mucous membranes. NECK: Normal range of motion, supple without lymphadenopathy, JVD, or masses. LUNGS: Breath sounds equal, clear to auscultation bilaterally. No wheezes, and no crackles. No accessory muscle use. HEART: Regular rate and rhythm, normal S1 and S2 without murmur, rub or gallop. ABDOMEN: Soft, nontender, not distended, normoactive bowel sounds, no guarding, no rebound, no masses. No hepatomegaly or splenomegaly. MUSCULOSKELETAL: No bony deformities or tenderness. No CVA tenderness. right elbow, wrist and hand contractures noted UPPER EXTREMITIES: 2+ pulses, warm, well-perfused. No cyanosis. No clubbing. No peripheral edema. LOWER EXTREMITIES: 2+ pulses, warm, well-perfused. No calf tenderness. No peripheral edema. NEUROLOGICAL: Right sided facial droop noted, tracks with eyes, no spontaneous movement of right side noted PSYCHIATRIC: Cooperative. Good eye contact. Appropriate mood and affect. SKIN: Warm, dry, normal turgor, no rashes or lesions noted, normal capillary refill. Laboratory Results - last 24 hr 01/24/18 01/24/18 01/24/18 14:32 14:32 14:32 WBC 7.7 RBC 4.58 Hgb 14.2 Hct 40.5 MCV 88.6 MCH 31.0 MCHC 35.0 RDW 13.6 Plt Count 187 MPV 10.5 Absolute Neuts (auto) 4.3 Neutrophils % 56.1 Lymphocytes % 27.3 D Monocytes % 14.0 H Eosinophils % 1.7 Basophils % 0.9 Nucleated RBC % 0 PT with INR 12.20 INR 1.03 Sodium Potassium Chloride Carbon Dioxide Anion Gap BUN Creatinine Creat Clearance w eGFR Random Glucose Lactic Acid Calcium Magnesium Total Bilirubin AST ALT Alkaline Phosphatase Troponin I Total Protein Albumin Urine Color Yellow Urine Appearance Clear Urine pH 6.0 Ur Specific [place] 1.024 Urine Protein Negative Urine Glucose (UA) Negative Urine Ketones Negative Urine Blood Negative Urine Nitrite Negative Urine Bilirubin Negative Urine Urobilinogen 2.0 H Ur Leukocyte Esterase Negative 01/24/18 01/24/18 14:32 14:32 WBC RBC Hgb Hct MCV MCH MCHC RDW Plt Count MPV Absolute Neuts (auto) Neutrophils % Lymphocytes % Monocytes % Eosinophils % Basophils % Nucleated RBC % PT with INR INR Sodium 140 Potassium 4.3 Chloride 110 H Carbon Dioxide 26 Anion Gap 4 L BUN 26 H Creatinine 0.8 Creat Clearance w eGFR > 60 Random Glucose 143 H Lactic Acid 1.4 Calcium 8.8 Magnesium 2.4 Total Bilirubin 0.4 AST 27 ALT 35 Alkaline Phosphatase 95 Troponin I < 0.02 Total Protein 6.6 Albumin 3.3 L Urine Color Urine Appearance Urine pH Ur Specific [place] Urine Protein Urine Glucose (UA) Urine Ketones Urine Blood Urine Nitrite Urine Bilirubin Urine Urobilinogen Ur Leukocyte Esterase EKG NSR rate of 70 bpm, axis nml, no st elevation or depression, t waves upright, no pathological q waves, pr prolongation Head CT without contrast Moderate to marked ventriculomegaly, unchanged since the prior examination, suggestive of communicating hydrocephalus. Moderate periventricular chronic microvascular seen disease changes. Focal chronic infarct in the left posterior basal ganglia extending to the periventricular white matter Likely tiny right paramedian pontine chronic lacunar infarct. 01/24/18 15:35 ASSESSMENT/PLAN: 87 year old female with a with PMH significant for Alzheimer's dementia, CVA with R hemiplegia 2016, HTN, HLD, GERD, UTI, anxiety/depression presented to the ED from [place] via EMS for transient periods of unresponsiveness, concern was that patient may be having another stroke. Head CT did not show any significant changes, patient placed on observation to be seen by neurology tomorrow. Transient unresponsiveness - Head CT shows moderate chronic microvascular changes since prior study - Neuro consult ordered DM - Monitor fingerstick glucose - SS with Novolog - Diabetic diet Hx CVA 2015 - R hemiplegia - Aspirin 325 mg PO DAILY HTN - Lisinopril 5 mg PO DAILY - Monitor BP HLD - Atorvastatin 40 mg PO HS - LFTs WNL Constipation - Senna 2 tab PO HS - Docusate Sodium 200 mg PO HS - Miralax 17 gm PO BID Supplement - Preservision Areds 2 1 tab PO BID - Vitamin D3 1,000 unit PO DAILY - Oyster Shell+D 250 mg 2 Tablets PO BID - Aa/Hydrolyzed Collagen, Whey 30 ml PO BID - Fosamax 70 mg PO TU Prophylaxis - DVT: Heparin SQ TID - GI: Ranitidine 150 mg PO HS FEN - NTL - BMP in am - Puree, nectar thick, sodium controlled diet as tolerated Dispo: pt currently requires further observation for management of emergent condition. Visit type - Emergency Visit Emergency Visit: Yes ED Registration Date: 01/24/18 Care time: The patient presented to the Emergency Department on the above date and was hospitalized for further evaluation of their emergent condition. - New Patient This patient is new to me today: Yes Date on this admission: 01/24/18 - Critical Care Critical Care patient: No
[2018-01-24] MEDS: DOCUSATE SODIUM 100 MG CAPSULE (FP) PO SCH (23:21)
[2018-01-24] MEDS: ATORVASTATIN CA 40 MG TABLET (FP) PO SCH (23:21)
[2018-01-24] MEDS: SENNOSIDES 8.6MG TABLET (FP) PO SCH (23:22)
[2018-01-24] MEDS: POLYETHYLENE GLYCOL 3350 119 GM BTL PO SCH (23:22)
[2018-01-24] MEDS: CALCIUM 250MG/VIT-D 125 UNITS 1 COMBO TABLET PO SCH (23:22)
[2018-01-24] MEDS: RANITIDINE HCL 150 MG TABLET (FP) PO SCH (23:22)
[2018-01-24] MEDS: HEPARIN NA (PORCINE) 5,000 UNITS/ML 1ML VIAL SQ SCH (23:31)
[2018-01-25 00:42] VITALS: BMI 22.7
[2018-01-25] MEDS: HEPARIN NA (PORCINE) 5,000 UNITS/ML 1ML VIAL SQ SCH ×3 (06:31→21:55)
[2018-01-25] MEDS: INSULIN SLIDING SCALE (NOVOLOG) 1 VIAL SQ SCH ×3 (06:32→17:10)
[2018-01-25 08:39] LABS: HEMATOCRIT 39.8 % (32.4-45.2); HEMOGLOBIN 13.9 GM/dL (10.7-15.3); MCHC 34.8 g/dl (32.0-36.0); MEAN CELL VOLUME 88.8 fl (80-96); MEAN PLT VOLUME 10.5 fl (7.5-11.1); PLATELET COUNT 211 K/MM3 (134-434); RBC 4.48 M/mm3 (3.60-5.2); RDW 13.8 % (11.6-15.6); WHITE BLOOD COUNT 7.9 K/mm3 (4.0-10.0)
[2018-01-25 08:58] LABS: ANION GAP 6 MMOL/L (8-16); BLOOD UREA NITROGEN 20 mg/dL (7-18); CALCIUM 9.1 mg/dL (8.5-10.1); CHLORIDE 107 mmol/L (98-107); CO2 27 mmol/L (21-32); CREATININE 0.9 mg/dL (0.55-1.3); GLUCOSE,RANDOM 160 mg/dL (74-106); MAGNESIUM 2.3 mg/dL (1.8-2.4); SODIUM 141 mmol/L (136-145)
--- NOTE | 2018-01-25 09:04 | CONSULT ---
Consult - text type - Consultation Consultation Note: Neurology PCP: Dr. Pride HISTORY OF PRESENT ILLNESS: 87 year old female with a with PMH significant for Alzheimer's dementia, CVA with R hemiplegia 2016, HTN, HLD, GERD, UTI, anxiety/depression [place] via [place] for transient periods of unresponsiveness, concern was that patient may be having another stroke. Patient is a resident at [facility], she is non-verbal and non-ambulatory at baseline. [place] staff reported 2 episodes of patient not responding to verbal stimuli with her eyes for about 30 seconds each time. No reports of convulsions. Patient had a CVA in 2016 with residual R sided contracture and weakness. No other recent illness reported. Upon admission to the ED, patient had an elevated temp of 99 and slightly elevated BP of 177/84. Labs significant for a BUN of 26. No significant changes to EKG and CXR. Lactic acid WNL, trop and UA negative. She was given [address] head reviewed and without acute changes. This AM, remains lethargic , arousable with noxious stimulation. Seen at bedside with nurse, vitals checked , BP improved to 140's/90's. Recent Travel: No PAST MEDICAL HISTORY: Anemia CVA (with residual right side weakness) HTN HLD Alzheimers GERD Anxiety Depression PAST SURGICAL HISTORY: Left hip replacement Social History: Smoking: unk Alcohol: unk Drugs: unk Family History: unable to obtain Allergies No Known Allergies Allergy (Verified 01/24/18 13:50) HOME MEDICATIONS: Home Medications Medication Instructions Recorded Aa/Hydrolyzed Collagen, Whey [Lps 30 ml PO BID 12/26/15 Neutral Flavor Liquid] Acetaminophen 650 mg PO Q6H PRN 12/26/15 Alendronate Sodium [Binosto] 70 mg PO TU 12/26/15 Calcium Carbonate/Vitamin D3 2 each PO BID 12/26/15 [Oyster Shell+D 250 mg Tablet] Docusate Sodium [Colace -] 200 mg PO HS 12/26/15 Guaifenesin [Patience-Tussin] 200 mg PO Q4H PRN 12/26/15 Lisinopril 5 mg PO DAILY 12/26/15 Aspirin [Aspirin EC] 325 mg PO DAILY #30 tablet. 01/05/16 Atorvastatin Ca [Lipitor] 40 mg PO HS #30 tablet 01/05/16 Cholecalciferol (Vitamin D3) 1,000 unit PO DAILY 07/25/17 [Vitamin D3] Polyethylene Glycol 3350 [Miralax 17 gm PO BID bottle 07/28/17 119 gm Btl -] Sennosides [Senna -] 2 tab PO HS tablet 07/28/17 Insulin Lispro [Humalog] 100 unit SQ BID 01/24/18 L. Acidophilus/Pectin, [place] 1 each PO DAILY 01/24/18 [Acidophilus Caplet] Ranitidine [Zantac -] 150 mg PO HS 01/24/18 Vit C/E/Zn/Coppr/Lutein/Zeaxan 1 each PO BID 01/24/18 [Preservision Areds 2 Softgel] REVIEW OF SYSTEMS Unresponsive PHYSICAL EXAMINATION Vital Signs Period Temp Pulse Resp BP Sys/Forrester Pulse Ox Last 24 Hr 98.0 F-99.3 F 71-80 12-20 128-204/63-84 94-100 GENERAL: Elderly, frail, fatigued, pt unable to verbalize in coherent sentences , in no acute distress. HEAD: Normal with no signs of trauma. EYES: Pupils equal, round and reactive to light, extraocular movements intact, sclera anicteric, conjunctiva clear. No lid lag. EARS, NOSE, THROAT: Edentulous, nares patent, oropharynx clear without exudates. Moist mucous membranes. NECK: Normal range of motion, supple without lymphadenopathy, JVD, or masses. LUNGS: Breath sounds equal, clear to auscultation bilaterally. No wheezes, and no crackles. No accessory muscle use. HEART: Regular rate and rhythm, normal S1 and S2 without murmur, rub or gallop. ABDOMEN: Soft, nontender, not distended, normoactive bowel sounds, no guarding, no rebound, no masses. No hepatomegaly or splenomegaly. MUSCULOSKELETAL: No bony deformities or tenderness. No CVA tenderness. right elbow, wrist and hand contractures noted UPPER EXTREMITIES: 2+ pulses, warm, well-perfused. No cyanosis. No clubbing. No peripheral edema. LOWER EXTREMITIES: 2+ pulses, warm, well-perfused. No calf tenderness. No peripheral edema. NEUROLOGICAL: Limited exam, not following commands, RUE hypertonic, not participating in confrontation exam, responds to noxious stimulation PSYCHIATRIC: Cooperative. Good eye contact. Appropriate mood and affect. SKIN: Warm, dry, normal turgor, no rashes or lesions noted, normal capillary refill. Laboratory Results - last 24 hr 01/24/18 01/24/18 01/24/18 14:32 14:32 14:32 WBC 7.7 RBC 4.58 Hgb 14.2 Hct 40.5 MCV 88.6 MCH 31.0 MCHC 35.0 RDW 13.6 Plt Count 187 MPV 10.5 Absolute Neuts (auto) 4.3 Neutrophils % 56.1 Lymphocytes % 27.3 D Monocytes % 14.0 H Eosinophils % 1.7 Basophils % 0.9 Nucleated RBC % 0 PT with INR 12.20 INR 1.03 Sodium Potassium Chloride Carbon Dioxide Anion Gap BUN Creatinine Creat Clearance w eGFR Random Glucose Lactic Acid Calcium Magnesium Total Bilirubin AST ALT Alkaline Phosphatase Troponin I Total Protein Albumin Urine Color Yellow Urine Appearance Clear Urine pH 6.0 Ur Specific [place] 1.024 Urine Protein Negative Urine Glucose (UA) Negative Urine Ketones Negative Urine Blood Negative Urine Nitrite Negative Urine Bilirubin Negative Urine Urobilinogen 2.0 H Ur Leukocyte Esterase Negative 01/24/18 01/24/18 14:32 14:32 WBC RBC Hgb Hct MCV MCH MCHC RDW Plt Count MPV Absolute Neuts (auto) Neutrophils % Lymphocytes % Monocytes % Eosinophils % Basophils % Nucleated RBC % PT with INR INR Sodium 140 Potassium 4.3 Chloride 110 H Carbon Dioxide 26 Anion Gap 4 L BUN 26 H Creatinine 0.8 Creat Clearance w eGFR > 60 Random Glucose 143 H Lactic Acid 1.4 Calcium 8.8 Magnesium 2.4 Total Bilirubin 0.4 AST 27 ALT 35 Alkaline Phosphatase 95 Troponin I < 0.02 Total Protein 6.6 Albumin 3.3 L Urine Color Urine Appearance Urine pH Ur Specific [place] Urine Protein Urine Glucose (UA) Urine Ketones Urine Blood Urine Nitrite Urine Bilirubin Urine Urobilinogen Ur Leukocyte Esterase EKG NSR rate of 70 bpm, axis nml, no st elevation or depression, t waves upright, no pathological q waves, pr prolongation Head CT without contrast Moderate to marked ventriculomegaly, unchanged since the prior examination, suggestive of communicating hydrocephalus. Moderate periventricular chronic microvascular seen disease changes. Focal chronic infarct in the left posterior basal ganglia extending to the periventricular white matter Likely tiny right paramedian pontine chronic lacunar infarct. ASSESSMENT/PLAN: 87 year old female with a with PMH significant for Alzheimer's dementia, CVA with R hemiplegia 2016, HTN, HLD, GERD, UTI, anxiety/depression presented [place] the ED [place] via [place] for transient periods of unresponsiveness, concern was that patient may be having another stroke. Patient is a resident at [facility], she is non-verbal and non-ambulatory at baseline. [place] staff reported 2 episodes of patient not responding to verbal stimuli with her eyes for about 30 seconds each time. No reports of convulsions. Patient had a CVA in 2016 with residual R sided contracture and weakness. No other recent illness reported. Upon admission to the ED, patient had an elevated temp of 99 and slightly elevated BP of 177/84. Labs significant for a BUN of 26. No significant changes to EKG and CXR. Lactic acid WNL, trop and UA negative. She was given [address] head reviewed and without acute changes. Will repeat this AM as continued somnolence. Appears to be generalized/systemic. Monitor infectious etiologies, correct electrolyte abrnomalities, increased hydration. Appears deconditioned. Unclear exact baseline and level of functionality at [place]. Conitnue monitoring neurologic exam. Monitor blood pressure, maintain normotensive range. DVT ppx.
[2018-01-25] MEDS ORDERED: PT OWN MED DRAWER 7, Y5N ONE (11:09)
[2018-01-25] MEDS: CALCIUM 250MG/VIT-D 125 UNITS 1 COMBO TABLET PO SCH ×2 (11:34→21:55)
[2018-01-25] MEDS: MULTIVITAMINS (DAILY MVI) TABLET (FP) PO SCH (11:34)
[2018-01-25] MEDS: CHOLECALCIFEROL (VITAMIN D3) 1,000 UNIT TABLET (FP) PO SCH (11:34)
[2018-01-25] MEDS: POLYETHYLENE GLYCOL 3350 119 GM BTL PO SCH ×2 (11:34→21:56)
[2018-01-25] MEDS: LISINOPRIL 5 MG TABLET (FP) PO SCH (11:34)
[2018-01-25] MEDS: ASPIRIN 325 MG ENTERIC COATED TABLET (FP) PO SCH (11:35)
--- NOTE | 2018-01-25 12:05 | EKG ---
Test Reason : Blood Pressure : / mmHG Vent. Rate : 070 BPM Atrial Rate : 070 BPM P-R Int : 206 ms QRS Dur : 078 ms QT Int : 404 ms P-R-T Axes : 064 024 045 degrees QTc Int : 436 ms POOR DATA QUALITY, INTERPRETATION MAY BE ADVERSELY AFFECTED NORMAL SINUS RHYTHM NONSPECIFIC T WAVE ABNORMALITY ABNORMAL ECG WHEN COMPARED WITH ECG OF 30-AUG-2017 14:54, INCOMPLETE RIGHT BUNDLE BRANCH BLOCK IS NO LONGER PRESENT Confirmed by MARLON MURRIETA MD ([id number]) on 01/25/2018 12:04:47 PM Referred By: Confirmed By:MARLON MURRIETA MD
--- NOTE | 2018-01-25 12:08 | DS ---
Physical Examination Vital Signs: Vital Signs Temperature 98.0 F 01/25/18 07:11 Pulse Rate 71 01/25/18 07:11 Respiratory Rate 20 01/25/18 07:11 Blood Pressure 128/63 01/25/18 07:11 O2 Sat by Pulse Oximetry (%) 94 L 01/24/18 22:00 Constitutional: Yes: Well Nourished, No Distress, Anxious Cardiovascular: Yes: Regular Rate and Rhythm Respiratory: Yes: WNL, Regular, CTA Bilaterally. No: Tachypnea, Wheezes Gastrointestinal: Yes: WNL, Normal Bowel Sounds, Soft. No: Distention, Tenderness Renal/: Yes: WNL Extremities: Yes: WNL Edema: No Neurological: Yes: Alert, Confusion Psychiatric: Yes: Alert Labs: CBC, BMP 01/25/18 08:03 01/25/18 08:03 Discharge Summary Reason For Visit: AMS Current Active Problems Altered mental state (Acute) Alzheimer's dementia without behavioral disturbance (Chronic) Hospital Course: 87 year old female admitted for evaluation of episode of reduced responsiveness at SNF. Considering past history of CVA, pt was admitted to r/o CVA/ neuro etiology. Pt evaluated by neurology. Head CTx 2 negative for acute findings. Vitals stable, labs unremarkable. Pt appears at baseline this am. Pt is medically stable for discharge to SNF. Pt cleared by neurology. 35 minutes spent in discharge planning Condition: Stable - Instructions Diet, Activity, Other Instructions: resume as prior no clinical changes Referrals: Sid Pride MD [Primary Care Provider] - Sacha Allison MD [Staff Physician] - - Home Medications Comprehensive Discharge Medication List: Ambulatory Orders Aa/Hydrolyzed Collagen, Whey [Lps Neutral Flavor Liquid] 30 ml PO BID 12/26/15 Acetaminophen 650 mg PO Q6H PRN 12/26/15 Alendronate Sodium [Binosto] 70 mg PO TU 12/26/15 Calcium Carbonate/Vitamin D3 [Oyster Shell+D 250 mg Tablet] 2 each PO BID Docusate Sodium [Colace -] 200 mg PO HS 12/26/15 Guaifenesin [Patience-Tussin] 200 mg PO Q4H PRN 12/26/15 Lisinopril 5 mg PO DAILY 12/26/15 Aspirin [Aspirin EC] 325 mg PO DAILY #30 tablet. 01/05/16 Atorvastatin Ca [Lipitor] 40 mg PO HS #30 tablet 01/05/16 Cholecalciferol (Vitamin D3) [Vitamin D3] 1,000 unit PO DAILY 07/25/17 Polyethylene Glycol 3350 [Miralax 119 gm Btl -] 17 gm PO BID bottle 07/28/17 Sennosides [Senna -] 2 tab PO HS tablet 07/28/17 Insulin Lispro [Humalog Kwikpen U-100] 100 unit SQ BID 01/24/18 L. Acidophilus/Pectin, [place] [Acidophilus Caplet] 1 each PO DAILY 01/24/18 Ranitidine [Zantac -] 150 mg PO HS 01/24/18 Vit C/E/Zn/Coppr/Lutein/Zeaxan [Preservision Areds 2 Softgel] 1 each PO BID
[2018-01-25] MEDS: RANITIDINE HCL 150 MG TABLET (FP) PO SCH (21:54)
[2018-01-25] MEDS: SENNOSIDES 8.6MG TABLET (FP) PO SCH (21:54)
[2018-01-25] MEDS: DOCUSATE SODIUM 100 MG CAPSULE (FP) PO SCH (21:55)
[2018-01-25] MEDS: ATORVASTATIN CA 40 MG TABLET (FP) PO SCH (21:55)
[2018-01-26] MEDS ORDERED: INSULIN (NOVOLOG) ASPART 100 UNITS/ML 10ML VIAL ONE (05:39)
[2018-01-26] MEDS: HEPARIN NA (PORCINE) 5,000 UNITS/ML 1ML VIAL SQ SCH ×3 (05:58→21:53)
[2018-01-26] MEDS: INSULIN SLIDING SCALE (NOVOLOG) 1 VIAL SQ SCH ×3 (06:00→17:09)
--- NOTE | 2018-01-26 09:02 | PN ---
Progress Note (short form) - Note Progress Note: Neurology HISTORY OF PRESENT ILLNESS: 87 year old female with a with PMH significant for Alzheimer's dementia, CVA with R hemiplegia 2016, HTN, HLD, GERD, UTI, anxiety/depression presented [place] the ED from [place] via EMS for transient periods of unresponsiveness, concern was that patient may be having another stroke. Patient is a resident at [facility], she is non-verbal and non-ambulatory at baseline. [place] staff reported 2 episodes of patient not responding to verbal stimuli with her eyes for about 30 seconds each time. No reports of convulsions. Patient had a CVA in 2016 with residual R sided contracture and weakness. No other recent illness reported. Upon admission to the ED, patient had an elevated temp of 99 and slightly elevated BP of 177/84. Labs significant for a BUN of 26. No significant changes to EKG and CXR. Lactic acid WNL, trop and UA negative. She was given [address] head reviewed and without acute changes. This AM, more awake, reponsive, not following commands but remains alert. Repeat CT head reviewed, report in chart, no acute changes. Volume loss noted, mention of hydocephalus but does not meet criteria for NPH. Also would not be good candidate for shunt. Discussed with hospital nurse practitioner, no further neurologic testing needed at this time. Otherwise stable. Allergies No Known Allergies Allergy (Verified 01/24/18 13:50) Active Medications Acetaminophen (Tylenol -) 650 mg PO Q6H PRN PRN Reason: PAIN LEVEL 1 - 3 Aspirin (Ecotrin -) 325 mg PO DAILY [facility] Last Admin: 01/25/18 11:35 Dose: 325 mg Atorvastatin Calcium (Lipitor -) 40 mg PO HS [facility] Last Admin: 01/25/18 21:55 Dose: 40 mg Calcium/Vitamin D (Oscal 250 Mg+D -) 2 tab PO BID [facility] Last Admin: 01/25/18 21:55 Dose: 2 tab Cholecalciferol (Vitamin D3 -) 1,000 unit PO DAILY [facility] Last Admin: 01/25/18 11:34 Dose: 1,000 unit Docusate Sodium (Colace -) 200 mg PO HS [facility] Last Admin: 01/25/18 21:55 Dose: Not Given Heparin Sodium (Porcine) (Heparin -) 5,000 unit SQ TID [facility] Last Admin: 01/26/18 05:58 Dose: 5,000 unit Insulin Aspart (Novolog Vial Sliding Scale -) 1 vial SQ TIDAC [facility]; Protocol Last Admin: 01/26/18 06:00 Dose: Not Given Lisinopril (Prinivil) 5 mg PO DAILY [facility] Last Admin: 01/25/18 11:34 Dose: 5 mg Multivitamins/Minerals/Vitamin C (Tab-A-Vit -) 1 tab PO DAILY [facility] Last Admin: 01/25/18 11:34 Dose: 1 tab Polyethylene Glycol (Miralax (For Daily Use) -) 17 gm PO BID [facility] Last Admin: 01/25/18 21:56 Dose: 17 gm Ranitidine HCl (Zantac -) 150 mg PO [facility] Last Admin: 01/25/18 21:54 Dose: 150 mg Senna (Senna -) 2 tab PO HS [facility] Last Admin: 01/25/18 21:54 Dose: 2 tab PHYSICAL EXAMINATION Vital Signs Period Temp Pulse Resp BP Sys/Forrester Pulse Ox Last 24 Hr 98.3 F-99.6 F 62-87 20-20 131-178/71-90 94 GENERAL: Elderly, frail, fatigued, pt unable to verbalize in coherent sentences , in no acute distress. HEAD: Normal with no signs of trauma. EYES: Pupils equal, round and reactive to light, extraocular movements intact, sclera anicteric, conjunctiva clear. No lid lag. EARS, NOSE, THROAT: Edentulous, nares patent, oropharynx clear without exudates. Moist mucous membranes. NECK: Normal range of motion, supple without lymphadenopathy, JVD, or masses. LUNGS: Breath sounds equal, clear to auscultation bilaterally. No wheezes, and no crackles. No accessory muscle use. HEART: Regular rate and rhythm, normal S1 and S2 without murmur, rub or gallop. ABDOMEN: Soft, nontender, not distended, normoactive bowel sounds, no guarding, no rebound, no masses. No hepatomegaly or splenomegaly. MUSCULOSKELETAL: No bony deformities or tenderness. No CVA tenderness. right elbow, wrist and hand contractures noted UPPER EXTREMITIES: 2+ pulses, warm, well-perfused. No cyanosis. No clubbing. No peripheral edema. LOWER EXTREMITIES: 2+ pulses, warm, well-perfused. No calf tenderness. No peripheral edema. NEUROLOGICAL: Limited exam, not following commands, RUE hypertonic, not participating in confrontation exam, responds to noxious stimulation PSYCHIATRIC: Cooperative. Good eye contact. Appropriate mood and affect. SKIN: Warm, dry, normal turgor, no rashes or lesions noted, normal capillary refill. CBCD WBC 7.9 K/mm3 (4.0-10.0) 01/25/18 08:03 RBC 4.48 M/mm3 (3.60-5.2) 01/25/18 08:03 Hgb 13.9 GM/dL (10.7-15.3) 01/25/18 08:03 Hct 39.8 % (32.4-45.2) 01/25/18 08:03 MCV 88.8 fl (80-96) 01/25/18 08:03 MCHC 34.8 g/dl (32.0-36.0) 01/25/18 08:03 RDW 13.8 % (11.6-15.6) 01/25/18 08:03 Plt Count 211 K/MM3 (134-434) 01/25/18 08:03 MPV 10.5 fl (7.5-11.1) 01/25/18 08:03 CMP Sodium 141 mmol/L (136-145) 01/25/18 08:03 Potassium 4.0 mmol/L (3.5-5.1) 01/25/18 08:03 Chloride 107 mmol/L (98-107) 01/25/18 08:03 Carbon Dioxide 27 mmol/L (21-32) 01/25/18 08:03 Anion Gap 6 MMOL/L (8-16) L 01/25/18 08:03 BUN 20 mg/dL (7-18) H 01/25/18 08:03 Creatinine 0.9 mg/dL (0.55-1.3) 01/25/18 08:03 Creat Clearance w eGFR 59.23 (>60) 01/25/18 08:03 Random Glucose 160 mg/dL (74-106) H 01/25/18 08:03 Calcium 9.1 mg/dL (8.5-10.1) 01/25/18 08:03 Total Bilirubin 0.4 mg/dL (0.2-1) 01/24/18 14:32 AST 27 U/L (15-37) 01/24/18 14:32 ALT 35 U/L (13-61) 01/24/18 14:32 Alkaline Phosphatase 95 U/L (45-117) 01/24/18 14:32 Total Protein 6.6 g/dl (6.4-8.2) 01/24/18 14:32 Albumin 3.3 g/dl (3.4-5.0) L 01/24/18 14:32 CARDIAC ENZYMES Troponin I < 0.02 ng/ml (0.00-0.05) 01/24/18 14:32 EKG NSR rate of 70 bpm, axis nml, no st elevation or depression, t waves upright, no pathological q waves, pr prolongation Head CT without contrast Moderate to marked ventriculomegaly, unchanged since the prior examination, suggestive of communicating hydrocephalus. Moderate periventricular chronic microvascular seen disease changes. Focal chronic infarct in the left posterior basal ganglia extending to the periventricular white matter Likely tiny right paramedian pontine chronic lacunar infarct. ASSESSMENT/PLAN: 87 year old female with a with PMH significant for Alzheimer's dementia, CVA with R hemiplegia 2016, HTN, HLD, GERD, UTI, anxiety/depression presented [place] the ED [place] via [place] for transient periods of unresponsiveness, concern was that patient may be having another stroke. Patient is a resident at [facility], she is non-verbal and non-ambulatory at baseline. [place] staff reported 2 episodes of patient not responding to verbal stimuli with her eyes for about 30 seconds each time. No reports of convulsions. Patient had a CVA in 2016 with residual R sided contracture and weakness. No other recent illness reported. Upon admission to the ED, patient had an elevated temp of 99 and slightly elevated BP of 177/84. Labs significant for a BUN of 26. No significant changes to EKG and CXR. Lactic acid WNL, trop and UA negative. She was given [address] head reviewed and without acute changes. Repeat Ct Stable. Continued medical optmization per primary. Likely for return to jail, in convo with nurse practitioner this seemed to be her baseline on last visit.
[2018-01-26] MEDS ORDERED: PT OWN MED DRAWER 7, Y5N ONE (10:28)
[2018-01-26] MEDS: LISINOPRIL 5 MG TABLET (FP) PO SCH (10:30)
[2018-01-26] MEDS: ASPIRIN 325 MG ENTERIC COATED TABLET (FP) PO SCH (10:30)
[2018-01-26] MEDS: CALCIUM 250MG/VIT-D 125 UNITS 1 COMBO TABLET PO SCH ×2 (10:30→21:53)
[2018-01-26] MEDS: CHOLECALCIFEROL (VITAMIN D3) 1,000 UNIT TABLET (FP) PO SCH (10:30)
[2018-01-26] MEDS: MULTIVITAMINS (DAILY MVI) TABLET (FP) PO SCH (10:30)
[2018-01-26] MEDS: POLYETHYLENE GLYCOL 3350 119 GM BTL PO SCH ×2 (10:31→21:53)
--- NOTE | 2018-01-26 15:38 | PN ---
Progress Note, Physician Chief Complaint: Pt sitting in bed in no acute distress. at baseline mental status. - Current Medication List Current Medications: Active Medications Acetaminophen (Tylenol -) 650 mg PO Q6H PRN PRN Reason: PAIN LEVEL 1 - 3 Aspirin (Ecotrin -) 325 mg PO DAILY [facility] Last Admin: 01/26/18 10:30 Dose: 325 mg Atorvastatin Calcium (Lipitor -) 40 mg PO [facility] Last Admin: 01/25/18 21:55 Dose: 40 mg Calcium/Vitamin D (Oscal 250 Mg+D -) 2 tab PO BID [facility] Last Admin: 01/26/18 10:30 Dose: 2 tab Cholecalciferol (Vitamin D3 -) 1,000 unit PO DAILY [facility] Last Admin: 01/26/18 10:30 Dose: 1,000 unit Docusate Sodium (Colace -) 200 mg PO [facility] Last Admin: 01/25/18 21:55 Dose: Not Given Heparin Sodium (Porcine) (Heparin -) 5,000 unit SQ TID [facility] Last Admin: 01/26/18 15:11 Dose: 5,000 unit Insulin Aspart (Novolog Vial Sliding Scale -) 1 vial SQ TIDAC [facility]; Protocol Last Admin: 01/26/18 11:31 Dose: Not Given Lisinopril (Prinivil) 5 mg PO DAILY [facility] Last Admin: 01/26/18 10:30 Dose: 5 mg Multivitamins/Minerals/Vitamin C (Tab-A-Vit -) 1 tab PO DAILY [facility] Last Admin: 01/26/18 10:30 Dose: 1 tab Polyethylene Glycol (Miralax (For Daily Use) -) 17 gm PO BID [facility] Last Admin: 01/26/18 10:31 Dose: 17 gm Ranitidine HCl (Zantac -) 150 mg PO [facility] Last Admin: 01/25/18 21:54 Dose: 150 mg Senna (Senna -) 2 tab PO [facility] Last Admin: 01/25/18 21:54 Dose: 2 tab - Objective Vital Signs: Vital Signs Temperature 98.5 F 01/26/18 14:00 Pulse Rate 78 01/26/18 14:00 Respiratory Rate 20 01/26/18 09:00 Blood Pressure 134/97 01/26/18 14:00 O2 Sat by Pulse Oximetry (%) 94 L 01/25/18 21:00 Constitutional: Yes: Well Nourished, No Distress Cardiovascular: Yes: WNL, Regular Rate and Rhythm. No: Murmur Respiratory: Yes: WNL, Regular, CTA Bilaterally. No: Accessory Muscle Use, SOB , Tachypnea, Wheezes Gastrointestinal: Yes: WNL, Normal Bowel Sounds, Soft. No: Distention, Tenderness Genitourinary: Yes: WNL Extremities: Yes: WNL Neurological: Yes: Alert, Confusion Psychiatric: Yes: Alert Labs: CBC, BMP 01/25/18 08:03 01/25/18 08:03 INR, PTT INR 1.03 (0.83-1.09) 01/24/18 14:32 Assessment/Plan Pt has been medically cleared for discharge since yesterday. Cleared by neurology. Apparently, pt's window broke at SNF, pt supposed to return to snf tmrw per SW.
[2018-01-26] MEDS: ATORVASTATIN CA 40 MG TABLET (FP) PO SCH (21:53)
[2018-01-26] MEDS: DOCUSATE SODIUM 100 MG CAPSULE (FP) PO SCH (21:53)
[2018-01-26] MEDS: RANITIDINE HCL 150 MG TABLET (FP) PO SCH (21:54)
[2018-01-26] MEDS: SENNOSIDES 8.6MG TABLET (FP) PO SCH (21:54)
[2018-01-27] MEDS: INSULIN SLIDING SCALE (NOVOLOG) 1 VIAL SQ SCH ×3 (06:41→16:25)
[2018-01-27] MEDS: HEPARIN NA (PORCINE) 5,000 UNITS/ML 1ML VIAL SQ SCH ×2 (06:43→13:02)
[2018-01-27] MEDS ORDERED: PT OWN MED DRAWER 7, Y5N ONE (08:31)
[2018-01-27] MEDS: CALCIUM 250MG/VIT-D 125 UNITS 1 COMBO TABLET PO SCH (09:02)
[2018-01-27] MEDS: LISINOPRIL 5 MG TABLET (FP) PO SCH (09:02)
[2018-01-27] MEDS: MULTIVITAMINS (DAILY MVI) TABLET (FP) PO SCH (09:03)
[2018-01-27] MEDS: CHOLECALCIFEROL (VITAMIN D3) 1,000 UNIT TABLET (FP) PO SCH (09:03)
[2018-01-27] MEDS: ASPIRIN 325 MG ENTERIC COATED TABLET (FP) PO SCH (09:03)
[2018-01-27] MEDS: POLYETHYLENE GLYCOL 3350 119 GM BTL PO SCH (09:04)
[2018-01-27 14:15] VITALS: BP 132/62; PULSE 64; TEMP 97.5
[2018-01-30] MEDS ORDERED: PATIENT'S OWN MEDICATION (NON-FORMULARY) (Alendronate Sodium [Binosto] 70 MG) PO SCH (16:53)
== END 2018-01-27 17:58 ==
LOC: JER 13:38 → JERBED 16:25 → J6S 21:00
PROVIDERS: ADMIT Internal Medicine; ATTEND Internal Medicine
PROC: 3E0337Z Introduction of Electrolytic and Water Balance Substance into Peripheral Vein, Percutaneous Approach (ICD-10-PCS; principal; 2018-01-24)
PROC: 3E013GC Introduction of Other Therapeutic Substance into Subcutaneous Tissue, Percutaneous Approach (ICD-10-PCS; 2018-01-24)
DX: R41.82 Altered mental status, unspecified (principal); G30.9 Alzheimer's disease, unspecified; F02.80 Dementia in other diseases classified elsewhere, unspecified severity, without behavioral disturbance, psychotic disturbance, mood disturbance, and anxiety; E11.9 Type 2 diabetes mellitus without complications; I10 Essential (primary) hypertension; E78.5 Hyperlipidemia, unspecified; I69.351 Hemiplegia and hemiparesis following cerebral infarction affecting right dominant side; D64.9 Anemia, unspecified; K21.9 Gastro-esophageal reflux disease without esophagitis; F41.9 Anxiety disorder, unspecified; F32.9 Major depressive disorder, single episode, unspecified; K59.00 Constipation, unspecified; Z79.4 Long term (current) use of insulin; Z79.82 Long term (current) use of aspirin
CPT/HCPCS: 36415; 70450-TC; 71045-TC-FY; 80048; 80053; 81003; 82962; 83605; 83735; 84484; 85025; 85027; 85610; 87086; 93005; 93010; 96372; 99285-25; G0378; J1644; J7030